=== PATIENT | male | born 1950 | race Caucasian/White ===

== ENCOUNTER 2018-12-29 00:21 | Emergency (ER) | payer MEDICARE, SELFPAY ==
[2018-12-29 00:24] VITALS: BP 160/91; PULSE 101; RESP 16; TEMP 36.8; O2SAT 94
[2018-12-29 00:58] VITALS: BP 153/80; PULSE 90; RESP 16; O2SAT 97
--- NOTE | 2018-12-29 01:19 | RAD_ITS ---
STUDY: X-RAY CHEST REASON FOR EXAM: Male, 68 years old. Tachypnea TECHNIQUE: 1 view COMPARISON: None. FINDINGS: The lungs are clear and expanded. There is no demonstrated pleural abnormality. Normal size heart. Normal mediastinum and caden. Normal visualized pulmonary arteries. Normal visualized aortic arch and descending thoracic aorta. Normal visualized thoracic spine. Normal visualized ribs, clavicles, and shoulders. There is no demonstrated abnormality of the visualized soft tissue structures of the upper abdomen. RAD/Chest 1 View (Portable) IMPRESSION: Normal x-ray examination of the chest. No acute findings in the lungs Electronically Signed: Tyler Rashid MD at 2:13 EDT Tel , Service support ,
--- NOTE | 2018-12-29 01:19 | EKG12_ITS ---
Test Reason : Blood Pressure : / mmHG Vent. Rate : 105 BPM Atrial Rate : 105 BPM P-R Int : 200 ms QRS Dur : 092 ms QT Int : 332 ms P-R-T Axes : 073 041 071 degrees QTc Int : 438 ms Sinus tachycardia with frequent Premature ventricular complexes Left ventricular hypertrophy with repolarization abnormality Marked ST abnormality, possible anterior subendocardial injury Abnormal ECG Confirmed by OSCAR RANGEL, HI ([id number]), editorial manager CHANO DEL CASTILLO ([id number]) on 01/01/2019 10:46:46 AM Referred By: RENE Confirmed By:HI MOORE MD
--- NOTE | 2018-12-29 01:19 | ED.VIS.GEN ---
History of Present Illness Chief Complaint: Mental Health Informant: Patient, Significant Other Onset: Days Context: Gradual Onset Timing: Continuous Narrative: Patient is a 68-year-old male with history of subarachnoid hemorrhage with resultant TBI presenting with a manic episode. states that since he has had a subarachnoid hemorrhage every 2 and half years he has a manic episode. Last few days he has been sleeping less and had been racing ideas. He is also not making much sense per the . He has been taking his Seroquel but is not helping. Patient was last hospitalized at [place]. Family states they do not want to go back there. Patient denies any physical complaints. Patient does have decreased visual field secondary to his prior intracranial hemorrhage. This is unchanged. 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 In addition he feels that he has solutions for a lot of the rolls problems but does not explain them. Past Medical History - Allergies and Home Meds Allergies/Adverse Reactions: Allergies Penicillins Allergy (Verified 12/29/18 00:32) Other promethazine HCl [From Phenergan] Allergy (Verified 12/29/18 00:32) Other risperidone [From Risperdal] Allergy (Verified 12/29/18 00:32) Other venlafaxine HCl [From Effexor] Allergy (Verified 12/29/18 00:32) Other perfume Adverse Reaction (Verified 12/29/18 00:32) Other Primary Care Physician: Max Cason MD [Primary Care Provider] - Past Medical History: - - Prior subarachnoid hemorrhage with resultant TBI Surgical History: tonsillectomy Smoking Status: Never smoker Review of Systems All systems negative except as indicated Psych: Reports: - - Insomnia, flight of ideas, manic behavior Physical Exam Vital Signs/Narrative: Vital Signs Temp Pulse Resp BP Pulse Ox 12/29/18 00:58 90 16 153/80 H 97 12/29/18 00:24 98.3 F 101 H 16 160/91 H 94 Inital Vital Signs reviewed: Yes General: Well nourished, Well developed, No Acute Distress Head: Normocephalic, Atraumatic Eyes: Perrl, - - Diminished visual monahan bilateral temporal as well as diminished extraocular eye movement, chronic per the ENT: Moist mucous membranes, No rhinorrhea Neck: Supple, Nontender Cardiovascular: Regular rate, Regular rhythm, No murmurs Respiratory: No distress, CTA bilaterally, Chest nontender Abdomen: Soft, Nontender, Nondistended, Normal bowel sounds Back: Nontender, Normal Inspection Extremities: Nontender, No edema Skin: Normal color, No rash Neurological: Alert, Oriented x3, Cranial nerves II-XII grossly intact, Normal Strength, Normal Sensation Psychological: - - Rapid and pressured speech, flight of ideas Diagnostic/Tx/Re-eval Chest X-Ray - ED: 1 View, Read by Radiologist, No Acute Disease Clinical Impression(s) from Imaging Studies Chest X-Ray 12/29/18 01:19 IMPRESSION: Normal x-ray examination of the chest. No acute findings in the lungs Electronically Signed: Tyler Rashid MD at 2:13 EDT Tel , Service support , Brain CT 12/29/18 01:49 IMPRESSION: Normal unenhanced CT scan of the brain. No acute findings in the brain Electronically Signed: Tyler Rashid MD at 2:48 EDT Tel , Service support , Laboratory Data 12/29/18 12/29/18 12/29/18 00:30 00:30 00:30 WBC 5.7 RBC 4.46 L Hgb 14.0 Hct 42.4 MCV 95.1 H MCH 31.4 MCHC 33.0 RDW Std Deviation 45.0 H RDW Coeff of Joanie 12.9 Plt Count 178 MPV 10.7 Immature Gran % (Auto) 0.500 Neut % (Auto) 72.5 H Lymph % (Auto) 14.6 L [place] % (Auto) 10.6 H Eos % (Auto) 0.7 Baso % (Auto) 1.1 H Absolute Neuts (auto) 4.1 Absolute Lymphs (auto) 0.83 Nucleated RBC % 0 Sodium 142 Potassium 4.0 Chloride 104 Carbon Dioxide 29.0 Anion Gap 9 BUN 22 H Creatinine 0.99 Estim Creat Clear Calc 63.93 Est GFR (MDRD) Af Amer 96 Est GFR (MDRD) Non-Af 79 BUN/Creatinine Ratio 22.2 H Glucose 113 H Calcium 10.2 H Urine Color Urine Clarity Urine pH Ur Specific [place] Urine Protein Urine Glucose (UA) Urine Ketones Urine Occult Blood Urine Nitrite Urine Bilirubin Urine Urobilinogen Ur Leukocyte Esterase Urine RBC Urine WBC Ur Squamous Epith Cells Urine Bacteria Urine Mucus Urine Opiates Screen Urine Methadone Screen Ur Barbiturates Screen Ur Phencyclidine Scrn Ur Amphetamines Screen U Methamphetamin-MDMA U Benzodiazepines Scrn Urine Cocaine Screen U Cannabinoids Screen Ur Drug Screen Comment Ethyl Alcohol < 3.0 12/29/18 12/29/18 01:45 01:45 WBC RBC Hgb Hct MCV MCH MCHC RDW Std Deviation RDW Coeff of Joanie Plt Count MPV Immature Gran % (Auto) Neut % (Auto) Lymph % (Auto) [place] % (Auto) Eos % (Auto) Baso % (Auto) Absolute Neuts (auto) Absolute Lymphs (auto) Nucleated RBC % Sodium Potassium Chloride Carbon Dioxide Anion Gap BUN Creatinine Estim Creat Clear Calc Est GFR (MDRD) Af Amer Est GFR (MDRD) Non-Af BUN/Creatinine Ratio Glucose Calcium Urine Color Yellow Urine Clarity Clear Urine pH 7.0 Ur Specific [place] 1.010 Urine Protein Negative Urine Glucose (UA) Normal Urine Ketones 5 H Urine Occult Blood Negative Urine Nitrite Negative Urine Bilirubin Negative Urine Urobilinogen Normal Ur Leukocyte Esterase Negative Urine RBC 0 SEEN Urine WBC 0 SEEN Ur Squamous Epith Cells 0 SEEN Urine Bacteria 0 SEEN Urine Mucus 0 SEEN Urine Opiates Screen NEGATIVE Urine Methadone Screen NEGATIVE Ur Barbiturates Screen POSITIVE H Ur Phencyclidine Scrn NEGATIVE Ur Amphetamines Screen NEGATIVE U Methamphetamin-MDMA NEGATIVE U Benzodiazepines Scrn NEGATIVE Urine Cocaine Screen NEGATIVE U Cannabinoids Screen NEGATIVE Ur Drug Screen Comment Ethyl Alcohol - Rhythm Strip Rhythm Strip: Sinus Tach Rate: 105 Ectopy: PVC(s) - EKG Initial EKG Interpretation: Sinus Tachycardia, - - Sinus tachycardia at a rate of 105 Frequent PVCs Normal intervals Normal axis Nonspecific ST segment abnormality in 2 and V3 with no reciprocal changes Compared to prior EKG on 05/28/2011 patient has new PVCs and tachycardia but no other significant change - Medical Decision Making Patient is evaluated for concern of a manic episode. He is hemodynamically stable. Patient initially tachycardic in the emergency room with PVCs but this improved. He does have an abnormal EKG but is not significantly different than prior EKGs. He does not claim any chest pain or any physical symptoms. Patient does display manic behavior and has confused speech as well as flight of ideas. He is medically cleared. I do think patient would benefit from evaluation for [facility] and recommendations per crisis. Patient does not require any sedation emergency room. He does complain of a headache and is given a dose of his home Fioricet. Patient has a history of chronic headaches. CT the brain does not show any acute intracranial process. Patient is evaluated by [facility]. They feel that while he is acutely manic he is not a danger to himself or others. He still able to care for himself. They recommended outpatient follow-up with crisis, counseling and his psychiatrist but does not require emergent inpatient psychiatric evaluation. I am agreeable with this. Patient's biggest concern is his inability to sleep. Patient has a prescription for Cymbalta, Seroquel and Ativan. He is encouraged to take his medications as prescribed as he has not been taking them regularly. In addition patient is counseled tonight he can take an extra Ativan if he does does not fall asleep about 30 minutes after taking his normal at 0.5 mg dose. Patient and are counseled on signs and symptoms of heart return the emergency room. They verbalized agreement understand this plan. Patient discharged home in stable condition. ED Disposition - Plan for ED Patient: Disposition: Home or Assisted Living Diagnosis: Insomnia, Lilly Instructions: Insomnia Referrals: Max Cason MD [Primary Care Provider] - Additional Instructions: Please follow-up with the counseling center as well as with your psychiatrist. Take all your medications as prescribed. It is safe to take Seroquel and Cymbalta together. These do not interact. He may take an extra dose of your Ativan pill tonight if you do not feel its effects within 30 minutes. Return to the emergency room with any worsening symptoms or concerns.
[2018-12-29 01:30] LABS: Absolute Lymphocyte Count 0.83 X10^3/uL (0.83-4.51); Absolute Neutrophil Count 4.1 X10^3/uL (2.0-7.7); Basophil# 0.06 X10^3/uL; Basophil% 1.1 % (0-1); Eosinophil# 0.04 X10^3/uL; Eosinophils% 0.7 % (0-5); Hematocrit 42.4 % (40-54); Lymphocyte # 0.83 X10^3/ul (4.0); Lymphocyte % 14.6 % (19-41); Mean Corpuscular Hgb 31.4 pg (27.0-32.0); Mean Corpuscular Volume 95.1 fL (80-94); Mean Platelet Vol. 10.7 fl (6.2-12.0); Monocyte% 10.6 % (0-10); NRBC Flagged by Analyzer 0 % (0-5); Neutrophil # 4.12 X10^3/uL (2.7-7.7); Neutrophil % 72.5 % (47-70); Platelet Count 178 K/mm3 (150-450); RBC Distribution Width CV 12.9 % (11.6-14.6); Red Blood Count 4.46 M/mm3 (4.6-6.2); White Blood Count 5.7 K/mm3 (4.4-11.0)
[2018-12-29 01:36] LABS: Alcohol, Blood (Medical)-Serum < 3.0 mg/dL
[2018-12-29 01:38] LABS: Anion Gap 9 (5-15); BUN 22 mg/dL (7-18); BUN/Creat Ratio 22.2 RATIO (10-20); Calcium,Total 10.2 mg/dL (8.5-10.1); Chloride 104 mmol/L (98-107); Creatinine, Serum 0.99 mg/dL (0.70-1.30); EST Glomerular Filtration Rate 79 mL/min (>60); Est Glom Filt Rate - Afr Amer 96 mL/min (>60); Estimated Creatinine Clearance 63.93 ml/min; Glucose 113 mg/dL (74-106); Sodium Level 142 mmol/L (136-145)
--- NOTE | 2018-12-29 01:49 | CT_ITS ---
STUDY: CT BRAIN WITHOUT CONTRAST REASON FOR EXAM: Male, 68 years old. Confusion. History of subarachnoid hemorrhage. RADIATION DOSAGE (If Supplied By Facility): CTDIvol = ( 44.99 ) mGy, DLP = ( 796.11 ) mGycm TECHNIQUE: Transaxial CT imaging of the brain was performed without administration of intravenous contrast material. Individualized dose optimization techniques were used for this CT. COMPARISON: September 07, 2015. FINDINGS: Normal soft tissue structures. Normal calvarium. Normal size ventricles and extra-axial spaces for the patient's age. Normal white matter tracts of the cerebral hemispheres. Normal basal ganglia and thalami. Normal brainstem. Normal cerebellum. There is no intracranial hemorrhage. There are no findings of an acute ischemic infarction. Normal visualized paranasal sinuses. CT/Brain/Head without Contrast IMPRESSION: Normal unenhanced CT scan of the brain. No acute findings in the brain Electronically Signed: Tyler Rashid MD at 2:48 EDT Tel , Service support ,
[2018-12-29 01:52] VITALS: RESP 16; O2SAT 98
[2018-12-29 01:56] LABS: Bacteria 0 SEEN /hpf (None Seen); Mucous, Urine 0 SEEN /hpf (<or=2+); Red Blood Cells-Urine 0 SEEN /hpf (0-5); Squamous Epithelial Cells - UA 0 SEEN /hpf (0-5); White Blood Cells 0 SEEN /hpf (0-5)
[2018-12-29 01:58] LABS: Color, Urine Yellow (Yellow); Glucose, Dipstick Normal (Normal); Ketone-Dipstick 5 mg/dl (Negative); Leukocyte Esterase-Dipstick Negative /ul (Negative); Nitrite-Dipstick Negative (Negative); Occult Blood-Urine Negative /ul (Negative); Protein-Dipstick Negative (Negative); Urine Bilirubin Dipstick Negative (Negative); Urine Clarity Clear (Clear); Urine Urobilinogen Normal (Normal)
[2018-12-29 02:17] LABS: Amphetamine Urine VISTA NEGATIVE (<1000 ng/mL); Barbiturate Urine VISTA POSITIVE (< 200 ng/mL); Benzodiazepine Urine VISTA NEGATIVE (< 200 ng/mL); Cocaine Urine VISTA NEGATIVE (< 300 ng/mL); Ecstacy Urine VISTA NEGATIVE (< 500 ng/mL); Methadone Urine VISTA NEGATIVE (< 300 ng/mL); PCP Urine VISTA NEGATIVE (< 25 ng/mL); THC Urine VISTA NEGATIVE (< 50 ng/mL); Vista UDS pH Range 7
[2018-12-29 03:04] VITALS: RESP 18
--- NOTE | 2018-12-29 03:07 | ED.RN ---
CALLED CRISIS TO SEE THIS PT, ELIAS IS LEHR STRIPPER
--- NOTE | 2018-12-29 03:50 | ED.RN ---
CRISIS ON SITE
[2018-12-29] MEDS: Acetaminophen/Butalbital/Caffe 1 Tablet PO (04:06)
[2018-12-29 04:15] VITALS: RESP 18
[2018-12-29 05:17] VITALS: BP 148/65; PULSE 87; RESP 16; O2SAT 96
== END 2018-12-29 05:18 | disposition home or self-care (01) ==
PROVIDERS: Emergency Provider Emergency Medicine; Family Provider Family Medicine; PCP Family Medicine
DX: G47.00 Insomnia, unspecified (principal); F30.9 Manic episode, unspecified; Z87.820 Personal history of traumatic brain injury; Z79.899 Other long term (current) drug therapy
CPT/HCPCS: 70450; 71045; 80048; 80307; 80320; 81001; 85025; 93005; 99284; A4216; G0480

== ENCOUNTER → 2019-03-31 12:57 | Outpatient (CLI) | payer MEDICARE, SELFPAY ==
--- NOTE | 2019-03-31 13:12 | CT_ITS ---
STUDY: CT CHEST WITH CONTRAST REASON FOR EXAM: Male, 68 years old. Myasthenia gravis without exacerbation, hx brain bleed. No chest pain or SOB. RADIATION DOSAGE (If Supplied By Facility): CTDIvol = ( 9.93 ) mGy, DLP = ( 271.08 ) mGycm TECHNIQUE: Transaxial imaging was performed following intravenous administration of IV 100mL Isovue-300. Individualized dose optimization techniques were used for this CT. COMPARISON: None. FINDINGS: The lungs are normal. There is no demonstrated pleural abnormality. Normal heart and pericardium. Aberrant right subclavian artery which is a normal variant. Normal mediastinum. Normal hilar regions. There is prominence of the pulmonary hilar arteries without peripheral pulmonary vascular congestion, suggesting pulmonary hypertension. Normal aorta arch and descending thoracic aorta. Normal osseous structures. There is no demonstrated abnormality of the visualized upper abdomen. CT/Chest WITH Contrast IMPRESSION: Suspect pulmonary arterial hypertension. Electronically Signed: Vasile Damian MD at 16:28 EST Tel , Service support ,
[2019-03-31 13:26] LABS: CREATININE FINGERSTICK 1.1 mg/dL (0.70-1.30); EGFR FINGERSTICK > 60.0000 mL/min (>60)
== END ==
PROVIDERS: Family Provider Family Medicine; PCP Family Medicine; Referring Provider Psychiatry & Neurology Neurology; Visit Provider Psychiatry & Neurology Neurology
DX: G70.00 Myasthenia gravis without (acute) exacerbation (principal)
CPT/HCPCS: 71260; Q9967

== ENCOUNTER → 2019-05-14 | Outpatient (CLI) | payer MEDICARE, SELFPAY ==
--- NOTE | 2019-05-14 15:14 | MRI_ITS ---
STUDY: MRI BRAIN WITH AND WITHOUT CONTRAST REASON FOR EXAM: Male, 68 years old. HEADACHES, BALANCE ISSUES, DROOPY EYELIDS X 7 MONTHS TECHNIQUE: Standardized multiplanar fat and water weighted pulse sequences were obtained. IV 13 CC DOTAREM was administered for the contrast portion of the examination. COMPARISON: 02/11/2011 FINDINGS: There is moderate cerebral atrophy with widening of the extra-axial spaces and ventricular dilatation. Normal white matter tracts of the supratentorial brain. There is no evidence for recent intracranial ischemia or other cause of cytotoxic edema on diffusion weighted imaging (DWI). Normal T2* images of the brain without demonstrated susceptibility artifact. There is no demonstrated hemosiderin stain. Thin linear area of gliosis in the anterior right parietal lobe likely from prior ventriculostomy catheter placement. Normal bilateral basal ganglia. Normal thalami. There is no extra-axial fluid accumulation. Normal flow voids within the major intracranial circulation suggesting patency by spin echo criteria. Normal venous enhancement. There is no enhancing intra-axial or extra-axial abnormality. Normal sella turcica, pituitary gland, infundibular stalk, optic chiasm and hypothalamus. Normal tectal plate and pineal gland. Normal midbrain, vannesa and medulla. Normal cerebellum. Normal basal cisterns. Normal bilateral temporal bones. Normal bilateral internal auditory canals. No demonstrated orbital abnormality, within the constraints of a routine brain study. Normal visualized paranasal sinuses. Normal calvarium and skull base. Normal visualized soft tissue structures. Normal visualized upper cervical spine. MRI/Brain W/WO Contrast IMPRESSION: Involutional changes of the brain, as described above. Electronically Signed: Vasile Damian MD at 16:43 EST Tel , Service support ,
== END | disposition home or self-care (01) ==
LOC: MRI 15:00
PROVIDERS: PCP Family Medicine; Referring Provider Psychiatry & Neurology Neurology; Visit Provider Psychiatry & Neurology Neurology
DX: R27.0 Ataxia, unspecified (principal)
CPT/HCPCS: 70553; A9575

== ENCOUNTER 2020-11-29 13:16 | Emergency (ER) | payer MEDICARE, SELFPAY ==
[2020-11-29 13:16] VITALS: BP 148/80; PULSE 72; RESP 18; TEMP 36.9; O2SAT 97; BMI 21.5
--- NOTE | 2020-11-29 14:19 | CT_ITS ---
STUDY: CT ABDOMEN AND PELVIS WITHOUT CONTRAST REASON FOR EXAM: Male, 70 years old. Right flank pain. History of prostate cancer. RADIATION DOSAGE (If Supplied By Facility): CTDIvol = ( 6.04 ) mGy, DLP = ( 305.04 ) mGycm TECHNIQUE: Transaxial images were obtained from the dome of the diaphragm to the symphysis pubis without oral contrast, and without intravenous contrast. Sagittal and coronal images were reconstructed. Individualized dose optimization techniques were used for this CT. COMPARISON: Comparison is made with prior examination dated 08/26/2015. FINDINGS: The visualized lung bases are unremarkable. Coronary artery calcification. Prior aortic valve replacement. Normal liver. Normal gallbladder and extrahepatic biliary system. Normal spleen. Normal pancreas. Normal bilateral adrenal glands. There is a 3.4 cm x 3.8 cm cyst in the anterior superior pole of the right kidney. There is a 5.4 mm calculus in the lower pole calyx of the right kidney. There is an 8.8 mm cyst in the lower pole of the right kidney. Normal left kidney. Normal visualized stomach. Normal small intestine. Normal colon. The appendix is visualized and appears normal. There is diffuse atherosclerotic calcification of the abdominal aorta. The distal abdominal aorta measures 2.8 cm in transverse dimension. Normal inferior vena cava. Normal retroperitoneum. Normal urinary bladder. The patient is status post prostatectomy. Normal abdominal wall. There are diffuse mild changes of the visualized lumbar spine. CT/Abdomen/Pelvis without Cont IMPRESSION: Stable right renal cyst and calculus in the lower pole calyx of the right kidney. Mildly dilated distal abdominal aorta. Electronically Signed: Martin Martinez MD at 15:01 EDT , Service support ,
--- NOTE | 2020-11-29 14:23 | EDS_ITS ---
HPI HPI - GI History of Present Illness Chief Complaint: Flank Pain Informant: patient Abdominal Pain/Flank Pain Onset: Yesterday Context: Gradual Onset Timing: Waxes and wanes Quality: Sharp Location: RLQ and Right Flank Worsened by: Nothing Relieved by: - (Fioricet) Nausea/Vomiting/Emesis GI Symptom: Positive for Nausea and Vomiting Quality: Negative for Blood streaks, Coffee ground and Hematemesis Diarrhea/Melena/Hematochezia GI Symptom: Negative for Diarrhea, Melena and Hematochezia Associated Symptoms Associated Symptoms: Negative for Dysuria, Frequency and Hematuria Narrative Narrative: Patient presents with flank pain that began yesterday evening. Patient states it is gradually gotten worse. Patient states is been waxing and waning. Patient states the pain is sharp. Patient states the pain is worse of the right lower quadrant and right lower flank area. Patient states nothing makes it better. Patient states it got better somewhat with Fioricet last nigh t. Patient admits to some nausea and vomiting. Patient denies any hematemesis or coffee-ground emesis. Patient denies any diarrhea, melena, or hematochezia. Patient denies any dysuria, hematuria, or frequency. Patient states he called his primary care physician who referred him to the emergency department for further evaluation. [facility] Medical History (Updated 11/29/20 @ 15:[address] Karthik Ramirez, ) Hypotension Prostate CA Prostate CA Pulmonary embolism Stroke/cerebrovascular accident Home Medications fluticasone propionate 1 spray NASAL DAILY 08/13/14 [History Last Taken Unknown] lorazepam 0.5 mg PO DAILY PRN PRN 08/13/14 [History Last Taken Unknown] trazodone 50 - 100 mg PO DAILY 08/13/14 [History Last Taken Unknown] duloxetine 1 tab PO DAILY 12/29/18 [History Last Taken Unknown] Colace 100 mg PO/SL DAILY 11/29/20 [History Last Taken Unknown] zjhpibgwqo-ukuazkodovskb-jefh 1 tab PO PRN PRN 11/29/20 [History Last Taken Unknown] fludrocortisone 0.1 mg PO DAILY 11/29/20 [History Last Taken Unknown] hydrocodone-acetaminophen 1 tab PO Q6H PRN PRN 3 Days #10 tablet 11/29/20 [Rx Last Taken Unknown] midodrine 2.5 mg PO DAILY 11/29/20 [History Last Taken Unknown] potassium chloride 20 meq PO DAILY 11/29/20 [History Last Taken Unknown] Allergy/AdvReac Type Severity Reaction Status Date / Time Penicillins Allergy Other Verified 11/29/20 13:18 promethazine HCl Allergy Other Verified 11/29/20 13:18 [From Phenergan] risperidone [From Risperdal] Allergy Other Verified 11/29/20 13:18 venlafaxine HCl Allergy Other Verified 11/29/20 13:18 [From Effexor] perfume AdvReac Other Verified 11/29/20 13:18 Surgical History (Updated 11/29/20 @ 14:[address] Karthik Ramirez DO) Hx of craniotomy Hx of prostatectomy Social History Smoking Status: Never smoker ROS ROS ED Constitutional Constitutional ED: Denies chills or fever(s) Eyes Eyes: Denies blurry vision or change in vision ENT ENT ED: Denies rhinorrhea or sore throat Cardiovascular Cardiovascular: Denies chest pain or palpitations Respiratory/Chest Respiratory/Chest: Denies cough or dyspnea Gastrointestinal Gastrointestinal: Reports abdominal pain, nausea and vomiting Genitourinary Genitourinary ED: Denies dysuria or hematuria Musculoskeletal Musculoskeletal: Reports back pain; Denies neck pain Integumentary Denies abscess or rash Neurologic Neurologic: Denies headache(s) or weakness Allergic/Immunologic Allergic/Immunologic ED: Denies mouth swelling or urticaria EXAM Physical Exam Const Vital Signs: 11/29/20 13:16 Temperature 98.4 F Temperature Source Temporal Pulse Rate 72 Respiratory Rate 18 Blood Pressure 148/80 H Blood Pressure Mean 102 Pulse Ox 97 Oxygen Delivery Method Room Air Positive well nourished and well developed General Appearance ED: well developed HEENT Reports moist mucous membranes Neck supple and no JVD Resp normal respiratory effort and clear to auscultation bilaterally Cardio regular rate, regular rhythm and no murmurs GI normal to inspection, nondistended, normoactive bowel sounds and non-distended Palpation: soft and tender RLQ; Negative for guarding or rebound tenderness present Extremity normal to inspection General Extremety ED: Negative for edema or tenderness General Extremity: Negative for edema Neuro oriented x3, CN's II-XII intact bilaterally and no sensory deficits noted Sensorium / Orientation: alert Motor Exam: strength 5/5 throughout Psych mental status grossly normal Skin no rashes or lesions noted MDM MDM MDM Narrative Medical decision making narrative: Patient was given IV fluids, morphine, and Zofran. CBC was within normal limits. Comprehensive metabolic profile was essentially within normal limits. Urinalysis does not show any evidence of urinary tract infection or hematuria. CT scan of the abdomen pelvis was obtained. There is a calculus in the lower pole of the right kidney but there is no ureteral calculus. There is a mildly dilated distal abdominal aorta at 2.8 cm. Patient was feeling better on reevaluation. Patient was advised of his findings. Patient was given a prescription for a short course of [place]. Patient was instructed to follow-up with his primary care physician in 5 to 7 days. Patient was instructed return if worse in any way. Patient understood and was agreeable with the plan. All questions were answered. Lab Data Attestation: I reviewed the patient's lab results. Labs: Laboratory Results - last 24 hr 11/29/20 11/29/20 11/29/20 13:30 13:30 13:30 WBC 4.4 RBC 4.29 L Hgb 13.4 Hct 41.9 MCV 97.7 H MCH 31.2 MCHC 32.0 RDW Std Deviation 46.6 H RDW Coeff of Joanie 13.2 Plt Count 172 MPV 10.4 Immature Gran % (Auto) 0.200 Neut % (Auto) 66.0 Lymph % (Auto) 15.6 L Jack % (Auto) 14.3 H Eos % (Auto) 3.2 Baso % (Auto) 0.7 Absolute Neuts (auto) 2.9 Absolute Lymphs (auto) 0.69 L Nucleated RBC % 0 Sodium 141 Potassium 3.7 Chloride 105 Carbon Dioxide 33.0 H Anion Gap 3 L BUN 22 H Creatinine 0.86 Estim Creat Clear Calc 74.72 Est GFR (MDRD) Af Amer 112 Est GFR (MDRD) Non-Af 93 BUN/Creatinine Ratio 25.6 H Glucose 113 H Calcium 9.2 Total Bilirubin 0.50 AST 21 ALT 28 Alkaline Phosphatase 63 Total Protein 6.5 Albumin 3.7 Globulin 2.8 Albumin/Globulin Ratio 1.3 Urine Color Yellow Urine Clarity Clear Urine pH 6.0 Ur Specific [place] 1.010 Urine Protein Negative Urine Glucose (UA) Normal Urine Ketones Negative Urine Occult Blood 10 H Urine Nitrite Negative Urine Bilirubin Negative Urine Urobilinogen Normal Ur Leukocyte Esterase Negative Urine RBC 0 SEEN Urine WBC 0 SEEN Ur Squamous Epith Cells 0 SEEN Urine Bacteria 0 SEEN Urine Mucus 0 SEEN Radiography Diagnostic Testing: Radiology Impression Abdomen/Pelvis CT 11/29/20 14:19 IMPRESSION: Stable right renal cyst and calculus in the lower pole calyx of the right kidney. Mildly dilated distal abdominal aorta. Electronically Signed: Martin Martinez MD at 15:01 EDT , Service support , Discharge Plan Triage Chief Complaint: Flank Pain ED Provider: Karthik Ramirez Dx/Rx/DC Orders Clinical Impression: Abdominal pain, right lower quadrant Instructions: ED Abdominal Pain Unkn Cause Male... Prescriptions: New hydrocodone-acetaminophen [hydrocodone-acetaminophen] 1 TABLET tablet 1 tab PO Q6H PRN PRN (Reason: Pain) 3 Days Qty: 10 RF: 0 No Action lorazepam 0.5 MG tablet 0.5 mg PO DAILY PRN PRN (Reason: Sleep) RF: 0 trazodone 100 MG tablet 50 - 100 mg PO DAILY RF: 0 fluticasone propionate 1 SPRAY spray,suspension 1 spray NASAL DAILY RF: 0 duloxetine 20 MG capsule 1 tab PO DAILY RF: 0 jvvenkvibn-uawvuwmkkpmoy-gwig 50-325-40 mg tablet 1 tab PO PRN PRN (Reason: Headache) RF: 0 potassium chloride 20 mEq tablet,ER particles/crystals 20 meq PO DAILY RF: 0 midodrine 2.5 mg tablet 2.5 mg PO DAILY RF: 0 fludrocortisone 0.1 mg tablet 0.1 mg PO DAILY RF: 0 Colace 100 mg PO/SL DAILY RF: 0 Primary Care Provider: Max Cason Referrals: Max Cason MD [Primary Care Provider] - 5-7 Days Disposition Disposition: Home, Self Care
[2020-11-29] MEDS: 0.9% Normal Saline 1,000 ML 1000 ML IV (14:29)
[2020-11-29] MEDS: Ondansetron 4 MG/2 ML Vial IV (14:29)
[2020-11-29] MEDS: Morphine 4 MG/ML Syringe IV (14:29)
[2020-11-29 14:33] LABS: Bacteria 0 SEEN /hpf (None Seen); Mucous, Urine 0 SEEN /hpf (<or=2+); Red Blood Cells-Urine 0 SEEN /hpf (0-5); Squamous Epithelial Cells - UA 0 SEEN /hpf (0-5); White Blood Cells 0 SEEN /hpf (0-5)
[2020-11-29 14:35] LABS: Absolute Lymphocyte Count 0.69 X10^3/uL (0.83-4.51); Absolute Neutrophil Count 2.9 X10^3/uL (2.0-7.7); Basophil# 0.03 X10^3/uL; Basophil% 0.7 % (0-1); Eosinophil# 0.14 X10^3/uL; Eosinophils% 3.2 % (0-5); Hematocrit 41.9 % (40-54); Hemoglobin 13.4 g/dL (13.0-16.5); Lymphocyte # 0.69 X10^3/ul (0.83-4.51); Lymphocyte % 15.6 % (19-41); Mean Corpuscular Hgb 31.2 pg (27.0-32.0); Mean Corpuscular Volume 97.7 fL (80-94); Mean Platelet Vol. 10.4 fl (6.2-12.0); Monocyte# 0.63 X10^3/uL; Monocyte% 14.3 % (0-10); NRBC Flagged by Analyzer 0 % (0-5); Neutrophil # 2.91 X10^3/uL (2.7-7.7); Platelet Count 172 K/mm3 (150-450); RBC Distribution Width CV 13.2 % (11.6-14.6); RBC Distribution Width SD 46.6 fl (35.1-43.9); Red Blood Count 4.29 M/mm3 (4.6-6.2); White Blood Count 4.4 K/mm3 (4.4-11.0)
[2020-11-29 14:40] LABS: Color, Urine Yellow (Yellow); Glucose, Dipstick Normal (Normal); Ketone-Dipstick Negative (Negative); Leukocyte Esterase-Dipstick Negative /ul (Negative); Nitrite-Dipstick Negative (Negative); Occult Blood-Urine 10 /ul (Negative); Protein-Dipstick Negative (Negative); Urine Bilirubin Dipstick Negative (Negative); Urine Clarity Clear (Clear); Urine Urobilinogen Normal (Normal)
[2020-11-29 14:47] LABS: ALB/GLOB Ratio 1.3 RATIO (0.9-2.4); AST(SGOT) 21 U/L (15-37); Alanine Aminotransfer ALT/SGPT 28 U/L (16-61); Albumin, Serum 3.7 g/dL (3.2-5.0); Alkaline Phosphatase 63 U/L (45-117); Anion Gap 3 (5-15); BUN 22 mg/dL (7-18); BUN/Creat Ratio 25.6 RATIO (10-20); Calcium,Total 9.2 mg/dL (8.5-10.1); Chloride 105 mmol/L (98-107); Creatinine, Serum 0.86 mg/dL (0.70-1.30); EST Glomerular Filtration Rate 93 mL/min (>60); Est Glom Filt Rate - Afr Amer 112 mL/min (>60); Estimated Creatinine Clearance 74.72 ml/min; Globulin 2.8 g/dL (2.2-4.2); Glucose 113 mg/dL (74-106); Potassium 3.7 mmol/L (3.5-5.1); Protein, Total 6.5 g/dL (6.4-8.2); Sodium Level 141 mmol/L (136-145)
== END 2020-11-29 15:29 | disposition home or self-care (01) ==
PROVIDERS: Emergency Provider Emergency Medicine; PCP Family Medicine
DX: R10.31 Right lower quadrant pain (principal)
CPT/HCPCS: 74176; 80053; 81001; 85025; 96361; 96374; 96375; 99282; J7030; A4216; J2405

== ENCOUNTER 2022-06-08 22:21 | Emergency (ER) | payer MEDICARE, SELFPAY ==
[2022-06-08 22:22] VITALS: BP 168/92; PULSE 71; RESP 18; TEMP 36.6; O2SAT 100; BMI 21.7
[2022-06-08 22:24] VITALS: BP 168/92; PULSE 71; RESP 18; TEMP 36.6; O2SAT 100
[2022-06-08] MEDS: 0.9% Normal Saline 1,000 ML 999 ML IV (23:35)
[2022-06-08] MEDS: Orphenadrine 60 MG/2 ML Ampul IV (23:36)
[2022-06-08] MEDS: Ketorolac 15 MG/ML Vial IV (23:36)
[2022-06-08 23:45] LABS: Absolute Lymphocyte Count 0.59 X10^3/uL (0.83-4.51); Bacteria 0 SEEN /hpf (None Seen); Basophil# 0.05 X10^3/uL; Basophil% 0.8 % (0-1); Eosinophil# 0.11 X10^3/uL; Eosinophils% 1.7 % (0-5); Hematocrit 40.4 % (40-54); Hemoglobin 13.2 g/dL (13.0-16.5); Lymphocyte # 0.59 X10^3/ul (0.83-4.51); Lymphocyte % 8.9 % (19-41); Mean Corp Hgb Conc 32.7 g/dL (32-36); Mean Corpuscular Volume 97.8 fL (80-94); Mean Platelet Vol. 10.4 fl (6.2-12.0); Monocyte# 0.81 X10^3/uL; Monocyte% 12.3 % (0-10); Mucous, Urine 0 SEEN /hpf (<or=2+); NRBC Flagged by Analyzer 0 % (0-5); Neutrophil # 5.03 X10^3/uL (2.7-7.7); POSITIVE DIFFERENTIAL YES; Platelet Count 169 K/mm3 (150-450); RBC Distribution Width CV 13.2 % (11.6-14.6); RBC Distribution Width SD 47.6 fl (35.1-43.9); Red Blood Count 4.13 M/mm3 (4.6-6.2); Squamous Epithelial Cells - UA 0 SEEN /hpf (0-5); White Blood Cells 0 SEEN /hpf (0-5); White Blood Count 6.6 K/mm3 (4.4-11.0)
[2022-06-08 23:46] LABS: Color, Urine Yellow (Yellow); Glucose, Dipstick Normal (Normal); Ketone-Dipstick Negative (Negative); Leukocyte Esterase-Dipstick Negative /ul (Negative); Nitrite-Dipstick Negative (Negative); Occult Blood-Urine 250 /ul (Negative); Protein-Dipstick 15 mg/dl (Negative); Urine Bilirubin Dipstick Negative (Negative); Urine Clarity Clear (Clear); Urine Urobilinogen Normal (Normal); Urine pH 6.5 (5.0 - 8.0)
[2022-06-08 23:47] VITALS: BP 174/81; PULSE 64; RESP 16; O2SAT 98
[2022-06-08 23:47] LABS: Differential Indicated SCAN CRITERIA MET
--- NOTE | 2022-06-08 23:57 | CT_ITS ---
INDICATION: flank pain EXAMINATION: CT ABDOMEN AND PELVIS WITHOUT CONTRAST - CT Abdomen And Pelvis W/O Contrast Injection TECHNIQUE: Helically acquired images were obtained of the abdomen and pelvis without oral or IV contrast. A radiation dose optimization technique was used for this scan. IV Contrast dosage and agent: None. Oral contrast: None. RADIATION DOSAGE (If Supplied By Facility): CTDIvol = ( 6.08 ) mGy, DLP = ( 315.78 ) mGycm COMPARISON: None. FINDINGS: LOWER CHEST: Lung bases are clear. No cardiomegaly or pericardial effusion. LIVER: Homogeneous. No focal mass. GALLBLADDER AND BILIARY TREE: No calcified gallstones. No gallbladder distension or wall edema. No intra- or extrahepatic biliary ductal dilation. PANCREAS: No focal cystic or solid mass. SPLEEN: Normal size without focal cystic or solid mass. ADRENAL GLANDS: No nodules. KIDNEYS AND URETERS: There is a right renal cyst measures 4.5 cm. There is moderate right hydronephrosis due to 7 mm stone in the proximal right ureter near the UPJ . PERITONEUM: No ascites or free air. No other fluid collection. BOWEL: No evidence of acute appendicitis. No stomach or bowel distension. No focal inflammatory change. LYMPH NODES: No enlarged mesenteric or retroperitoneal lymph nodes. VESSELS: Aorta is non-dilated. URINARY BLADDER: Unremarkable. REPRODUCTIVE ORGANS: No pelvic masses. ABDOMINAL WALL: No discrete abdominal or pelvic wall hernia. BONES: No lytic or blastic abnormality. CT/Abdomen/Pelvis without Cont IMPRESSION: There is moderate right hydronephrosis due to 7 mm stone in the proximal right ureter near the UPJ . Electronically Signed: Ron Cheney MD at 0:30 EDT ,
[2022-06-08 23:59] LABS: Anion Gap 5 (5-15); BUN 27 mg/dL (7-18); BUN/Creat Ratio 21.3 RATIO (10-20); Calcium,Total 9.3 mg/dL (8.5-10.1); Chloride 106 mmol/L (98-107); Creatinine, Serum 1.27 mg/dL (0.70-1.30); EST Glomerular Filtration Rate 59 mL/min (>60); Est Glom Filt Rate - Afr Amer 71 mL/min (>60); Estimated Creatinine Clearance 50.19 ml/min; Glucose 116 mg/dL (74-106); Potassium 3.8 mmol/L (3.5-5.1); Sodium Level 141 mmol/L (136-145)
[2022-06-09 00:10] LABS: Red Blood Cells-Urine 0-5 SEEN /hpf (0-5)
[2022-06-09 00:11] LABS: Differential Comment SCANNED
[2022-06-09 00:34] VITALS: BP 137/72; PULSE 62; RESP 16; O2SAT 98
[2022-06-09] MEDS: Ondansetron 4 MG/2 ML Vial IV (00:41)
[2022-06-09] MEDS: Morphine 4 MG/ML Syringe IV (00:41)
--- NOTE | 2022-06-09 01:40 | EDS_ITS ---
HPI History of Present Illness Chief Complaint: Flank Pain Informant: patient Narrative Narrative: Patient is a 71-year-old male who presents with pain in the right low back/abdominal region. Patient states he has had pain in this area for years. He cannot tell me what the reason for the pain over that long of a time period is from. He states he typically takes his Fioricet and symptoms will improve. He states that this evening the pain has been more intense than at his baseline and there has been no recent trauma or excessive activity. He states he took his normal Fioricet and there was no symptom improvement and secondary to his he comes in for evaluation. He does report his urine has looked dark recently but denies any dysuria. [facility] Medical History (Updated 06/09/22 @ 01:[address] Trav Falk, ) Hypotension Prostate CA Prostate CA Pulmonary embolism Stroke Stroke/cerebrovascular accident Subarachnoid hemorrhage Home Medications fluticasone propionate 50 mcg/actuation nasal spray,suspension 1 spray DAILY 08/13/14 [History Last Taken Unknown] lorazepam 0.5 mg tablet 0.5 mg PO DAILY PRN PRN Sleep 08/13/14 [History Last Taken Unknown] trazodone 100 mg tablet 50 - 100 mg PO DAILY 08/13/14 [History Last Taken Unknown] duloxetine 20 mg capsule,delayed release 1 tab PO DAILY 12/29/18 [History Last Taken Unknown] Colace 100 mg PO/SL DAILY 11/29/20 [History Last Taken Unknown] prntrttuii-rpojhpfzzrjtu-dgvnftct 50 mg-325 mg-40 mg tablet 1 tab PO PRN PRN Headache 11/29/20 [History Last Taken Unknown] fludrocortisone 0.1 mg tablet 0.1 mg PO DAILY 11/29/20 [History Last Taken Unknown] hydrocodone-acetaminophen 5-325mg 5mg-325mg 1 tab PO Q6H PRN PRN Pain 3 days #10 TABLETS 11/29/20 [Rx Last Taken Unknown] midodrine 2.5 mg tablet 2.5 mg PO DAILY 11/29/20 [History Last Taken Unknown] potassium chloride 20 mEq tablet,extended release(part/cryst) 20 meq PO DAILY 11/29/20 [History Last Taken Unknown] ketorolac 10 mg tablet 10 mg PO 4X/DAY PRN PRN pain 5 days #20 tabs 04/02/23 [Rx Last Taken Unknown] oxycodone-acetaminophen 5 mg-325 mg tablet (Endocet) 1 tab PO Q6H PRN pain 3 days #12 tabs 06/09/22 [Rx Last Taken Unknown] tamsulosin 0.4 mg capsule (Flomax) 0.4 mg PO DAILY #14 caps 06/09/22 [Rx Last Taken Unknown] Allergy/AdvReac Type Severity Reaction Status Date / Time Penicillins Allergy Other Verified 11/29/20 13:18 promethazine HCl Allergy Other Verified 11/29/20 13:18 [From Phenergan] risperidone [From Risperdal] Allergy Other Verified 11/29/20 13:18 venlafaxine HCl Allergy Other Verified 11/29/20 13:18 [From Effexor] perfume AdvReac Other Verified 11/29/20 13:18 Surgical History (Updated 11/29/20 @ 14:[address] Karthik Ramirez DO) Hx of craniotomy Hx of prostatectomy Social History Smoking Status: Never smoker ROS ROS ED Constitutional Constitutional ED: Denies chills or fever(s) ENT ENT ED: Denies sore throat Cardiovascular Cardiovascular: Denies chest pain Respiratory/Chest Respiratory/Chest: Denies cough or dyspnea Gastrointestinal Gastrointestinal: Reports abdominal pain; Denies diarrhea, nausea or vomiting Genitourinary Genitourinary ED: Denies dysuria Musculoskeletal Musculoskeletal: Reports back pain; Denies myalgias Integumentary Denies rash Neurologic Neurologic: Denies headache(s) Hematologic/Lymphatic Hematologic/Lymphatic: Denies easy bleeding or easy bruising EXAM Physical Exam Const Vital Signs: 06/08/22 22:22 06/08/22 22:24 06/08/22 23:47 Temperature 97.8 F 97.8 F Temperature Source Temporal Temporal Pulse Rate 71 71 64 Respiratory Rate 18 18 16 Blood Pressure 168/92 H 168/92 H 174/81 H Blood Pressure Mean 117 117 112 Pulse Ox 100 100 98 Oxygen Delivery Method Room Air Room Air Room Air 06/09/22 00:34 Temperature Temperature Source Pulse Rate 62 Respiratory Rate 16 Blood Pressure 137/72 H Blood Pressure Mean 93 Pulse Ox 98 Oxygen Delivery Method Room Air Positive well nourished and well developed General Appearance ED: well developed HEENT Reports moist mucous membranes Eyes PERRL and EOMs intact bilaterally General Eye ED: Negative for scleral icterus Neck supple Resp normal respiratory effort and clear to auscultation bilaterally Cardio regular rate and regular rhythm Rate: other Other Details: Radial pulses are plus 2 out of 4 bilaterally are equal and symmetric GI non-distended and no masses GI Narrative: Abdomen is soft and nondistended with normal active bowel sounds. There is faint pain noted in the right mid to lower abdomen without voluntary guarding or rigidity. No fluid wave or pulsatile mass noted Auscultation: normoactive bowel sounds Palpation: soft Back/Spine Back/Spine Narrative: Positive right CVA pain Extremity normal to inspection Neuro oriented x3 and CN's II-XII intact bilaterally Sensorium / Orientation: alert Psych Psych Narrative: Patient has a flat affect Skin no rashes or lesions noted Skin Narrative: No overlying abrasions or ecchymosis to suggest trauma and no overlying erythema or warmth to suggest infection MDM MDM MDM Narrative Medical decision making narrative: Patient presented to the ER mildly hypertensive but otherwise with stable vitals. He reported longstanding right-sided abdominal/back pain but this pain tonight was more intense than previous. With his exam showing right CVA pain there is concern this is a new onset kidney stone. Differential also includes pyelonephritis urinary tract infection biliary colic or acute appendicitis. Lab work showed no leukocytosis or left shift there is no signs of acute kidney injury as his creatinine is still normal and there is no signs of urinary infection. CT scan showed a large 7 mm stone in the distal right UVJ with obstruction causing mild hydronephrosis. The patient was given IV fluids Toradol morphine and reported his pain was minimal. At this time he does not have urosepsis or acute kidney injury from the stone he has improvement of his pain as well and therefore there is no need for emergent urology consultation or admission to the hospital. Patient will be started on on Toradol and Percocet on an outpatient and advised to see urology to discuss need for stent placement. Plan of care was discussed with the patient he is agreeable to it History & Record Review Discussion w/independent historian: Patient Lab Data Attestation: I reviewed the patient's lab results. Labs: Laboratory Results - last 24 hr 06/08/22 06/08/22 06/08/22 23:35 23:35 23:35 WBC 6.6 RBC 4.13 L Hgb 13.2 Hct 40.4 MCV 97.8 H MCH 32.0 MCHC 32.7 RDW Std Deviation 47.6 H RDW Coeff of Joanie 13.2 Plt Count 169 MPV 10.4 Immature Gran % (Auto) 0.300 Neut % (Auto) 76.0 H Lymph % (Auto) 8.9 L Lawrence % (Auto) 12.3 H Eos % (Auto) 1.7 Baso % (Auto) 0.8 Absolute Neuts (auto) 5.0 Absolute Lymphs (auto) 0.59 L Nucleated RBC % 0 Differential Comment SCANNED Sodium 141 Potassium 3.8 Chloride 106 Carbon Dioxide 30.0 Anion Gap 5 BUN 27 H Creatinine 1.27 Estim Creat Clear Calc 50.19 Est GFR (MDRD) Af Amer 71 Est GFR (MDRD) Non-Af 59 L BUN/Creatinine Ratio 21.3 H Glucose 116 H Calcium 9.3 Urine Color Yellow Urine Clarity Clear Urine pH 6.5 Ur Specific [place] 1.010 Urine Protein 15 H Urine Glucose (UA) Normal Urine Ketones Negative Urine Occult Blood 250 H Urine Nitrite Negative Urine Bilirubin Negative Urine Urobilinogen Normal Ur Leukocyte Esterase Negative Urine RBC 0-5 SEEN Urine WBC 0 SEEN Ur Squamous Epith Cells 0 SEEN Urine Bacteria 0 SEEN Urine Mucus 0 SEEN Radiography Diagnostic Testing: Clinical Impression(s) from Imaging Studies Abdomen/Pelvis CT 06/08/22 23:57 IMPRESSION: There is moderate right hydronephrosis due to 7 mm stone in the proximal right ureter near the UPJ . Electronically Signed: Ron Cheney MD at 0:30 EDT , Discharge Plan Triage Chief Complaint: Flank Pain ED Provider: Trav Falk Dx/Rx/DC Orders Clinical Impression: Kidney stone on right side, Renal colic Instructions: ED Kidney Stone w/ Colic Prescriptions: New tamsulosin [Flomax] 0.4 mg capsule 0.4 mg PO DAILY Qty: 14 0RF ketorolac 10 mg tablet 10 mg PO 4X/DAY PRN PRN (Reason: pain) 5 Days Qty: 20 0RF Rx Instructions: while awake; do not exceed 4 doses per day oxycodone-acetaminophen [Endocet] 5-325 mg tablet 1 tab PO Q6H PRN (Reason: pain) 3 Days Qty: 12 0RF No Action lorazepam 0.5 MG tablet 0.5 mg PO DAILY PRN PRN (Reason: Sleep) trazodone 100 MG tablet 50 - 100 mg PO DAILY fluticasone propionate 1 SPRAY spray,suspension 1 spray NASAL DAILY duloxetine 20 MG capsule 1 tab PO DAILY Label Comments: TAKE 1 CAPSULE BY MOUTH ONCE DAILY rpiilnkuqt-gkvaigeumskxs-uvdh 50-325-40 mg tablet 1 tab PO PRN PRN (Reason: Headache) Label Comments: TAKE 1 CAPSULE BY MOUTH ONCE DAILY NEEDED FOR SEVERE HEADACHE potassium chloride 20 mEq tablet,ER particles/crystals 20 meq PO DAILY midodrine 2.5 mg tablet 2.5 mg PO DAILY Label Comments: TAKE 1 TABLET BY MOUTH TWICE DAILY fludrocortisone 0.1 mg tablet 0.1 mg PO DAILY Label Comments: TAKE 1 TABLET BY MOUTH ONCE DAILY Colace 100 mg PO/SL DAILY hydrocodone-acetaminophen [hydrocodone-acetaminophen] 1 TABLET tablet 1 tab PO Q6H PRN PRN (Reason: Pain) 3 Days Qty: 10 0RF Primary Care Provider: Max Cason Referrals: Max Cason MD [Primary Care Provider] - Jorge Lemos MD [Med Staff - Active Staff] - Activity Restrictions/Additional Instructions: Please keep yourself well-hydrated and stay active to try and help pass your kidney stone. If you develop a fever over 100.4 or your pain is not controlled please return to the ER for repeat evaluation. Otherwise follow-up with urology to discuss need for stent placement Disposition Disposition: Home, Self Care Discharge Date/Time: 06/09/22 02:22
[2022-06-09] MEDS: oxyCODONE 5 MG Tablet PO (02:15)
== END 2022-06-09 02:22 | disposition home or self-care (01) ==
PROVIDERS: Emergency Provider Emergency Medicine; PCP Family Medicine; Visit Provider Emergency Medicine
DX: N13.2 Hydronephrosis with renal and ureteral calculous obstruction (principal); N23 Unspecified renal colic
CPT/HCPCS: 74176; 80048; 81001; 85025; 96361; 96374; 96375; 99283; J7030; A4216; J2405

== ENCOUNTER 2022-11-30 14:01 | Emergency (ER) | payer MEDICARE, SELFPAY ==
[2022-11-30 14:02] VITALS: BP 93/54; PULSE 74; RESP 16; TEMP 36.3; O2SAT 100
--- NOTE | 2022-11-30 14:13 | RAD_ITS ---
EXAM: XR RIGHT TIBIA AND FIBULA, 2 VIEWS CLINICAL INDICATION: Trauma injury. TECHNIQUE: Frontal and lateral views of the right tibia and fibula. COMPARISON: No relevant prior studies available. FINDINGS: BONES/JOINTS: Unremarkable. No acute fracture. No subluxation. Normal alignment. Preservation of the joint space. No sclerotic or destructive changes observed. SOFT TISSUES: Soft tissue laceration overlying the mid fibular shaft. No radiopaque foreign body. RAD/Tibia & Fibula 2 Views IMPRESSION: 1. No acute fracture or dislocation of the right tibia and fibula. 2. Soft tissue laceration overlying the mid fibular shaft.. Electronically Signed: Dony Mixon MD at 16:10 EDT ,
--- NOTE | 2022-11-30 14:13 | CT_ITS ---
EXAM: CT HEAD WITHOUT INTRAVENOUS CONTRAST CLINICAL INDICATION: Trauma injury. TECHNIQUE: Multiple axial images were obtained of the head without intravenous contrast. This CT exam was performed using one or more of the following dose reduction techniques: automated exposure control, adjustment of the mA and/or kV according to patient size, and/or use of iterative reconstruction technique. RADIATION DOSE: CTDIvol = 44.99 mGy, DLP = 846.73 mGy-cm COMPARISON: CT head without contrast 12/29/2018. MRI brain with and without contrast 05/14/2019. FINDINGS: BRAIN AND EXTRA-AXIAL SPACES: Cystic encephalomalacia and atrophy in the right middle frontal gyrus. No intra- or extra-axial hemorrhage. No evidence of acute infarct. No intracranial mass or mass effect. There is preservation of the wheeler/white matter interface. Posterior fossa structures are unremarkable. No hydrocephalus. Basal cisterns are patent. BONES/JOINTS: Unremarkable. No discrete lytic or blastic abnormalities. SINUSES: Unremarkable as visualized. Clear. MASTOID AIR CELLS: Unremarkable. Clear. ORBITS: Visualized globes, extraocular muscles, optic nerves and retrobulbar fat appear unremarkable. CT/Brain/Head without Contrast IMPRESSION: 1. No CT evidence of intracranial bleeding, acute ischemic infarct or acute intracranial abnormality. 2. Focal cystic encephalomalacia and atrophy in the right middle frontal gyrus. This was present previously. Electronically Signed: Dony Mixon MD at 15:09 EDT ,
--- NOTE | 2022-11-30 14:13 | CT_ITS ---
We are attempting to reach an attending provider to discuss findings. An addendum with communication details will be sent when the communication is complete. EXAM: CT CERVICAL SPINE WITHOUT INTRAVENOUS CONTRAST CLINICAL INDICATION: Trauma injury. TECHNIQUE: Helically acquired images were obtained of the cervical spine without intravenous contrast. 2D reformatted images were reviewed. This CT exam was performed using one or more of the following dose reduction techniques: automated exposure control, adjustment of the mA and/or kV according to patient size, and/or use of iterative reconstruction technique. RADIATION DOSE: CTDIvol = 15.90 mGy, DLP = 346.36 mGy-cm COMPARISON: No relevant prior studies available. FINDINGS: VERTEBRAE: Mild degenerative anterolisthesis of C7 on T1. Normal vertebral body heights. DISCS/SPINAL CANAL/NEURAL FORAMINA: C5-C6 degenerative disc space height narrowing with endplate sclerosis and degenerative fact phenomenon. C6-C7 degenerative disc space height narrowing. Normal central canal. Normal remaining cervical disc space heights. SOFT TISSUES: Unremarkable. No prevertebral soft tissue swelling. LYMPH NODES: Unremarkable. No cervical adenopathy. LUNG APICES: Small right apical pneumothorax.. CT/Spine Cervical without Contras IMPRESSION: 1. No CT evidence of acute fracture of the cervical spine, craniocervical junction and cervicothoracic junction. 2. Mild degenerative anterolisthesis of C7 on T1. 3. Small right apical pneumothorax. Electronically Signed: Dony Mixon MD at 15:13 EDT ,
--- NOTE | 2022-11-30 14:16 | ED.VIS.FALL ---
HPI HPI - Fall History of Present Illness Chief Complaint: Fall Narrative Narrative: Presents with head injury, rib injury and right leg wound after a fall off a ladder. He is not anticoagulated. No loss consciousness. Denies any other injury. [facility] Medical History Hypotension Prostate CA Prostate CA Pulmonary embolism Stroke Stroke/cerebrovascular accident Subarachnoid hemorrhage Home Medications fluticasone propionate 50 mcg/actuation nasal spray,suspension 1 spray DAILY 08/13/14 [History Last Taken Unknown] lorazepam 0.5 mg tablet 0.5 mg PO DAILY PRN PRN Sleep 08/13/14 [History Last Taken Unknown] trazodone 100 mg tablet 50 - 100 mg PO DAILY 08/13/14 [History Last Taken Unknown] duloxetine 20 mg capsule,delayed release 1 tab PO DAILY 12/29/18 [History Last Taken Unknown] Colace 100 mg PO/SL DAILY 11/29/20 [History Last Taken Unknown] hpiwhderex-yjbqfjycbqqot-unvubveh 50 mg-325 mg-40 mg tablet 1 tab PO PRN PRN Headache 11/29/20 [History Last Taken Unknown] fludrocortisone 0.1 mg tablet 0.1 mg PO DAILY 11/29/20 [History Last Taken Unknown] hydrocodone-acetaminophen 5-325mg 5mg-325mg 1 tab PO Q6H PRN PRN Pain 3 days #10 TABLETS 11/29/20 [Rx Last Taken Unknown] midodrine 2.5 mg tablet 2.5 mg PO DAILY 11/29/20 [History Last Taken Unknown] potassium chloride 20 mEq tablet,extended release(part/cryst) 20 meq PO DAILY 11/29/20 [History Last Taken Unknown] ketorolac 10 mg tablet 10 mg PO 4X/DAY PRN PRN pain 5 days #20 tabs 06/09/22 [Rx Last Taken Unknown] oxycodone-acetaminophen 5 mg-325 mg tablet (Endocet) 1 tab PO Q6H PRN pain 3 days #12 tabs 06/09/22 [Rx Last Taken Unknown] tamsulosin 0.4 mg capsule (Flomax) 0.4 mg PO DAILY #14 caps 06/09/22 [Rx Last Taken Unknown] cephalexin 500 mg capsule 500 mg PO Q6 #40 CAPSULES 11/30/22 [Rx Last Taken Unknown] oxycodone-acetaminophen 5 mg-325 mg tablet (Percocet) 1 tab PO Q8H PRN pain 3 days #12 tabs 11/30/22 [Rx Last Taken Unknown] Allergy/AdvReac Type Severity Reaction Status Date / Time Penicillins Allergy Other Verified 11/30/22 14:01 promethazine HCl Allergy Other Verified 11/30/22 14:01 [From Phenergan] risperidone [From Risperdal] Allergy Other Verified 11/30/22 14:01 venlafaxine HCl Allergy Other Verified 11/30/22 14:01 [From Effexor] perfume AdvReac Other Verified 11/30/22 14:01 Surgical History Hx of craniotomy Hx of prostatectomy Social History Smoking Status: Never smoker ROS ROS ED ROS Narrative Social: Noncontributory Medications: Reviewed Past medical history: Reviewed Review of systems General: Head injury but no loss of consciousness HEENT: No facial injury Neck: No neck pain Cardiovascular: Patient denies any chest pain or palpitations Chest wall: Chest wall pain wound Respiratory: There is no shortness of breath GI: There is no nausea vomiting diarrhea or abdominal pain, no abdominal wall contusions Skin: Right leg wound Neurological: Patient has no memory loss, confusion, or any focal weakness Psychiatric: No recent behavioral changes Back: No back pain, no problems with ambulation Musculoskeletal: As in HPI EXAM Physical Exam Narrative Exam Narrative: Physical exam General: Patient appears somewhat uncomfortable Head: Normocephalic, 2 centimeter scalp laceration Eyes: Conjunctiva not pale ENT: Moist mucous membranes Neck: Supple, Nontender, No lymphadenopathy Cardiovascular: Regular rate, Regular rhythm Chest wall: Right-sided chest wall tenderness no obvious contusions. Respiratory: No distress, CTA bilaterally Abdomen: Soft, Nontender, Nondistended Back: Nontender, Normal Inspection. Negative for: CVA tenderness Extremities: There are 2 areas that can approximate well with an area of about 5 cm in diameter that is missing tissue. Skin: Normal color, No rash Neurological: Alert, Normal Strength, Normal Sensation Psychological: Normal affect Const Vital Signs: 11/30/22 14:02 11/30/22 14:29 Temperature 97.3 F L Temperature Source Temporal Pulse Rate 74 Respiratory Rate 16 Respiratory Effort Normal Respiratory Depth Shallow Blood Pressure 93/54 L Blood Pressure Mean 67 Pulse Ox 100 Oxygen Delivery Method Room Air MDM MDM MDM Narrative Medical decision making narrative: Procedure note: 1. Leg laceration total of 16 cm There are 2 areas that can approximate well with an area of about 5 cm in diameter that is missing tissue. This only has soft tissue and adipose tissue exposed. The 2 areas that can be approximated are not precipitated, there each 7 cm. A total of 11 of the 4-0 nylon sutures were placed. I used 1% lidocaine, Shur-Clens and wound was irrigated and cleansed well. 2. Scalp laceration. I used Laure-Joseph, verbal consent. 2 munira were placed without any difficulty wound approximated well. MDM: Patient has a normal CT of the head, C-spine is negative but on the C-spine x-ray there is a very small apical pneumothorax which is not seen on the rib or chest x-ray. He has no respiratory distress and he appears well he has normal pulse ox and respiratory rate therefore I do not believe a chest tube is needed, I do not believe admission is needed especially that he feels relatively well. Wounds were approximated see 2 different procedure notes. I talked to and that okay with the plan. Because of there is still a defect in the wound due to skin and tissue loss, I will send the patient to the wound clinic. Tetanus was updated and patient will be placed on antibiotics. Wound care was explained. Radiography Diagnostic Testing: Clinical Impression(s) from Imaging Studies Brain CT 11/30/22 14:13 IMPRESSION: 1. No CT evidence of intracranial bleeding, acute ischemic infarct or acute intracranial abnormality. 2. Focal cystic encephalomalacia and atrophy in the right middle frontal gyrus. This was present previously. Electronically Signed: Dony Mixon MD at 15:09 EDT , Cervical Spine CT 11/30/22 14:[address]: [address] evidence of acute fracture of the cervical spine, craniocervical junction and cervicothoracic junction. 2. Mild degenerative anterolisthesis of C7 on T1. 3. Small right apical pneumothorax. Electronically Signed: Dony Mixon MD at 15:13 EDT , ADDENDUM: 11/30/22 1527 IMPRESSION: 1. No CT evidence of acute fracture of the cervical spine, craniocervical junction and cervicothoracic junction. 2. Mild degenerative anterolisthesis of C7 on T1. 3. Small right apical pneumothorax. N.B. : The above Results were Read Back by Dony Mixon MD to Elbert Burton MD, and understanding confirmed on 11/30/2022 15:20:20 (ET). Electronically Signed: Dony Mixon MD at 15:13 EDT Reading Location ID and State: [facility] / [place] , Service support , Tibia/Fibula X-Ray 11/30/22 14:13 IMPRESSION: 1. No acute fracture or dislocation of the right tibia and fibula. 2. Soft tissue laceration overlying the mid fibular shaft.. Electronically Signed: Dony Mixon MD at 16:10 EDT Reading Location ID and State: [facility] / [place] , Service support , Ribs w/Chest X-Ray 11/30/22 14:45 IMPRESSION: No suspicious acute fractures of the right rib cage or acute cardiopulmonary pathology. The right apical pneumothorax seen on CT cervical spine is not obvious on chest radiograph. Electronically Signed: Dony Mixon MD at 16:06 EDT , Discharge Plan Triage Chief Complaint: Fall ED Provider: Elbert Burton Dx/Rx/DC Orders Clinical Impression: Pneumothorax, Laceration of leg, Complex laceration of scalp, Fall Instructions: Pneumothorax (Collapsed Lung), ED Head Injury (Adult), ED Laceration Extremity Prescriptions: New oxycodone-acetaminophen [Percocet] 5-325 mg tablet 1 tab PO Q8H PRN (Reason: pain) 3 Days Qty: 12 0RF cephalexin 500 mg capsule 500 mg PO Q6 Qty: 40 0RF No Action lorazepam 0.5 MG tablet 0.5 mg PO DAILY PRN PRN (Reason: Sleep) trazodone 100 MG tablet 50 - 100 mg PO DAILY fluticasone propionate 1 SPRAY spray,suspension 1 spray NASAL DAILY duloxetine 20 MG capsule 1 tab PO DAILY Patient Comments: TAKE 1 CAPSULE BY MOUTH ONCE DAILY modinigwsh-wureqewplnpfd-erfc 50-325-40 mg tablet 1 tab PO PRN PRN (Reason: Headache) Patient Comments: TAKE 1 CAPSULE BY MOUTH ONCE DAILY NEEDED FOR SEVERE HEADACHE potassium chloride 20 mEq tablet,ER particles/crystals 20 meq PO DAILY midodrine 2.5 mg tablet 2.5 mg PO DAILY Patient Comments: TAKE 1 TABLET BY MOUTH TWICE DAILY fludrocortisone 0.1 mg tablet 0.1 mg PO DAILY Patient Comments: TAKE 1 TABLET BY MOUTH ONCE DAILY Colace 100 mg PO/SL DAILY hydrocodone-acetaminophen [hydrocodone-acetaminophen] 1 TABLET tablet 1 tab PO Q6H PRN PRN (Reason: Pain) 3 Days Qty: 10 0RF tamsulosin [Flomax] 0.4 mg capsule 0.4 mg PO DAILY Qty: 14 0RF ketorolac 10 mg tablet 10 mg PO 4X/DAY PRN PRN (Reason: pain) 5 Days Qty: 20 0RF Rx Instructions: while awake; do not exceed 4 doses per day oxycodone-acetaminophen [Endocet] 5-325 mg tablet 1 tab PO Q6H PRN (Reason: pain) 3 Days Qty: 12 0RF Primary Care Provider: Max Cason Referrals: Max Cason MD [Primary Care Provider] - 3-5 Days Disposition Disposition: Home, Self Care
[2022-11-30] MEDS: Oxycodone/Apap 5/325 Tablet PO (14:24)
[2022-11-30] MEDS: Cephalexin 250 MG Capsule 500 MG PO (14:25)
[2022-11-30] MEDS: Diphth,Pertuss(Acell),Tet Vac 0.5 ML Vial IM (14:25)
--- NOTE | 2022-11-30 14:45 | RAD_ITS ---
EXAM: XR RIGHT RIBS AND AP CHEST, 3 OR MORE VIEWS CLINICAL INDICATION: Trauma injury. TECHNIQUE: Frontal and oblique views of the right ribs and frontal view of the chest. COMPARISON: No relevant prior studies available. FINDINGS: LUNGS AND PLEURAL SPACES: No suspicious infiltrates. HEART: Unremarkable. Cardiac silhouette not enlarged. MEDIASTINUM: Central airways and mediastinal contour are unremarkable. BONES/JOINTS: Unremarkable. No obvious acute fractures of the right rib cage although there is right apical pneumothorax on the CT cervical spine. VASCULATURE: Calcified plaques along the right common carotid artery. RAD/Ribs Uni Min 3V w/PA Chest IMPRESSION: No suspicious acute fractures of the right rib cage or acute cardiopulmonary pathology. The right apical pneumothorax seen on CT cervical spine is not obvious on chest radiograph. Electronically Signed: Dony Mixon MD at 16:06 EDT ,
== END 2022-11-30 17:45 | disposition home or self-care (01) ==
PROVIDERS: Emergency Provider Emergency Medicine; PCP Family Medicine; Visit Provider Emergency Medicine
DX: S81.811A Laceration without foreign body, right lower leg, initial encounter (principal); S01.01XA Laceration without foreign body of scalp, initial encounter; W11.XXXA Fall on and from ladder, initial encounter; J93.9 Pneumothorax, unspecified; Z23 Encounter for immunization
CPT/HCPCS: 12005; 70450; 71101; 72125; 73590; 90471; 90715; 99284

== ENCOUNTER 2022-12-02 12:29 | Emergency (ER) | payer MEDICARE, SELFPAY ==
[2022-12-02 12:30] VITALS: BP 105/58; PULSE 78; RESP 16; TEMP 36.4; O2SAT 99
[2022-12-02 13:21] VITALS: BMI 20.2
--- NOTE | 2022-12-02 13:42 | EX.ED.DYSGE1 ---
HPI <BELEM Godoy - Last Filed: 12/02/22 18:25> History of Present Illness Chief Complaint: Wound Narrative Narrative: Patient presenting today after being sent over from his PCPs office. He was being evaluated due to a a fall off a ladder that occurred 2 days ago, he was originally seen here and was found to have a complex laceration to his right lower leg and scalp. He also has right rib contusions with a small right apical pneumothorax. He has continued to have right-sided rib pain. He was referred to the wound care center and has an appointment on . His PCP is requesting that we get him into the wound care clinic sooner and also give him supplies to help care for his wound. He denies any shortness of breath or chest pain, no fever or chills. He is on Keflex for the leg wound. He has not noticed any surrounding erythema or purulent discharge. [facility] <BELEM Godoy - Last Filed: 12/02/22 18:25> [facility] Medical History Hypotension Prostate CA Prostate CA Pulmonary embolism Stroke Stroke/cerebrovascular accident Subarachnoid hemorrhage Home Medications fluticasone propionate 50 mcg/actuation nasal spray,suspension 1 spray DAILY 08/13/14 [History Last Taken Unknown] lorazepam 0.5 mg tablet 0.5 mg PO DAILY PRN PRN Sleep 08/13/14 [History Last Taken Unknown] trazodone 100 mg tablet 50 - 100 mg PO DAILY 08/13/14 [History Last Taken Unknown] duloxetine 20 mg capsule,delayed release 1 tab PO DAILY 12/29/18 [History Last Taken Unknown] Colace 100 mg PO/SL DAILY 11/29/20 [History Last Taken Unknown] ujvcupznhg-emwsqbazgahiq-rpajnlys 50 mg-325 mg-40 mg tablet 1 tab PO PRN PRN Headache 11/29/20 [History Last Taken Unknown] fludrocortisone 0.1 mg tablet 0.1 mg PO DAILY 11/29/20 [History Last Taken Unknown] hydrocodone-acetaminophen 5-325mg 5mg-325mg 1 tab PO Q6H PRN PRN Pain 3 days #10 TABLETS 11/29/20 [Rx Last Taken Unknown] midodrine 2.5 mg tablet 2.5 mg PO DAILY 11/29/20 [History Last Taken Unknown] potassium chloride 20 mEq tablet,extended release(part/cryst) 20 meq PO DAILY 11/29/20 [History Last Taken Unknown] ketorolac 10 mg tablet 10 mg PO 4X/DAY PRN PRN pain 5 days #20 tabs 06/09/22 [Rx Last Taken Unknown] tamsulosin 0.4 mg capsule (Flomax) 0.4 mg PO DAILY #14 caps 06/09/22 [Rx Last Taken Unknown] cephalexin 500 mg capsule 500 mg PO Q6 #40 CAPSULES 11/30/22 [Rx Last Taken Unknown] Allergy/AdvReac Type Severity Reaction Status Date / Time Penicillins Allergy Other Verified 11/30/22 14:01 promethazine HCl Allergy Other Verified 11/30/22 14:01 [From Phenergan] risperidone [From Risperdal] Allergy Other Verified 11/30/22 14:01 venlafaxine HCl Allergy Other Verified 11/30/22 14:01 [From Effexor] perfume AdvReac Other Verified 11/30/22 14:01 Surgical History Hx of craniotomy Hx of prostatectomy Social History household members: spouse Smoking Status: Never smoker ROS <BELEM Godoy - Last Filed: 12/02/22 18:25> ROS ED Constitutional Constitutional ED: Denies chills or fever(s) Eyes Eyes: Denies blurry vision Cardiovascular Cardiovascular: Denies chest pain Respiratory/Chest Respiratory/Chest: Denies cough or dyspnea Gastrointestinal Gastrointestinal: Denies abdominal pain, nausea or vomiting Musculoskeletal Musculoskeletal: Denies arthralgias, myalgias or neck pain Integumentary Denies abscess, Abrasions or rash Neurologic Neurologic: Denies confusion, dizziness or paresthesias Psychiatric Psychiatric: Denies anxiety, depression, suicidal ideation or suicidal thoughts Allergic/Immunologic Allergic/Immunologic ED: Denies lip swelling, mouth swelling or urticaria EXAM <BELEM Godoy - Last Filed: 12/02/22 18:25> Physical Exam Const Vital Signs: 12/02/22 12:30 12/02/22 15:00 12/02/22 15:00 Temperature 97.5 F L Temperature Source Temporal Pulse Rate 78 70 Respiratory Rate 16 24 H Blood Pressure 105/58 L 118/62 Blood Pressure Mean 73 80 Pulse Ox 99 94 94 Oxygen Delivery Method Room Air Nasal Cannula Nasal Cannula Oxygen Flow Rate (L/min) 2 2 12/02/22 15:00 12/02/22 16:30 12/02/22 18:00 Temperature 98.7 F 98.8 F 98.8 F Temperature Source Temporal Temporal Temporal Pulse Rate 70 74 75 Respiratory Rate 22 H 18 28 H Blood Pressure 118/62 139/88 H 154/80 H Blood Pressure Mean 80 105 104 Pulse Ox 94 99 100 Oxygen Delivery Method Nasal Cannula Nasal Cannula Nasal Cannula Oxygen Flow Rate (L/min) 2 4 2 Positive well nourished, well developed and no apparent distress General Appearance ED: well developed HEENT Reports normocephalic and head/scalp atraumatic Mouth ED: Yes moist mucous membranes normal Eyes PERRL and EOMs intact bilaterally Neck full ROM and supple Chest Wall inspection of chest normal Chest Narrative: Tenderness to palpation along the right lateral rib cage. Resp normal respiratory effort and clear to auscultation bilaterally Cardio regular rate and regular rhythm GI soft to palpation, non-tender, non-distended and no masses Back/Spine normal ROM and normal to inspection Extremity full ROM Extremity Narrative: Complex wound to the right lower leg with about 5 cm of tissue loss. No surrounding erythema, no purulent discharge. Neuro oriented x3, CN's II-XII intact bilaterally, moves all extremities, no focal motor deficits and no sensory deficits noted Sensorium / Orientation: awake and alert Psych mental status grossly normal and thought process normal Skin no rashes or lesions noted and no wounds <Dr. Karthik Ramirez, DO - Last Filed: 12/02/22 17:44> Physical Exam Const Vital Signs: 12/02/22 12:30 12/02/22 15:00 12/02/22 15:00 Temperature 97.5 F L Temperature Source Temporal Pulse Rate 78 70 Respiratory Rate 16 24 H Blood Pressure 105/58 L 118/62 Blood Pressure Mean 73 80 Pulse Ox 99 94 94 Oxygen Delivery Method Room Air Nasal Cannula Nasal Cannula Oxygen Flow Rate (L/min) 2 2 12/02/22 15:00 12/02/22 16:30 12/02/22 18:00 Temperature 98.7 F 98.8 F 98.8 F Temperature Source Temporal Temporal Temporal Pulse Rate 70 74 75 Respiratory Rate 22 H 18 28 H Blood Pressure 118/62 139/88 H 154/80 H Blood Pressure Mean 80 105 104 Pulse Ox 94 99 100 Oxygen Delivery Method Nasal Cannula Nasal Cannula Nasal Cannula Oxygen Flow Rate (L/min) 2 4 2 MDM <BELEM Godoy - Last Filed: 12/02/22 18:25> [facility] MDM Narrative Medical decision making narrative: Patient presenting after being sent by his PCP office. He has a complex wound to his right lower leg after falling off a ladder 2 days ago. His PCP wanted us to get him into the wound care center sooner than . We are not able to get him in any quicker. However, we will give him wound care instructions and supplies. I did obtain a chest x-ray to evaluate his pneumothorax that was not originally seen on his chest x-ray from 11/30. This was instead seen on the cervical spine CT and was read as a small right apical pneumo. He is not having any shortness of breath but has continued to have right-sided rib pain. I do suspect that he has rib fractures. Chest x-ray here shows a 15% right-sided hydropneumothorax. Attending did speak with Dr. Reed who recommends obtaining a chest CT. Patient does have multiple rib fractures and will require a chest tube, this was placed by Dr. Reed, he recommends transfer to trauma center. Chest CT does show fractures to ribs 7-10 along with the 15% right hydropneumothorax. Infiltrates to the right middle and lower lobes. He will be started on Levaquin. Basic labs obtained. I spoke with Dr. Webster at [facility] ED who is excepting of transfer. He will be transferred in stable condition. Lab Data Attestation: I reviewed the patient's lab results. Labs: Laboratory Results - last 24 hr 12/02/22 16:33 WBC 7.1 RBC 3.99 L Hgb 12.5 L Hct 39.0 L MCV 97.7 H MCH 31.3 MCHC 32.1 RDW Std Deviation 48.0 H RDW Coeff of Joanie 13.3 Plt Count 161 MPV 10.0 Immature Gran % (Auto) 0.400 Neut % (Auto) 74.1 H Lymph % (Auto) 9.3 L Hanson % (Auto) 14.9 H Eos % (Auto) 0.7 Baso % (Auto) 0.6 Absolute Neuts (auto) 5.3 Absolute Lymphs (auto) 0.66 L Nucleated RBC % 0 Sodium 138 Potassium 4.1 Chloride 103 Carbon Dioxide 32.0 Anion Gap 3 L BUN 31 H Creatinine 0.87 Estim Creat Clear Calc 67.64 Est GFR (MDRD) Af Amer 110 Est GFR (MDRD) Non-Af 91 BUN/Creatinine Ratio 35.6 H Glucose 117 H Calcium 8.8 Radiography X-Ray: Read by ED Physician and Read by Radiologist Diagnostic Testing: Clinical Impression(s) from Imaging Studies Chest X-Ray 12/02/22 13:54 IMPRESSION: 15% right-sided hydropneumothorax with right basilar infiltrate and/or atelectasis. Electronically Signed: Martin Martinez MD at 14:36 EDT , Chest CT 12/02/22 14:53 IMPRESSION: Right lower rib fractures with a 15% right-sided pneumothorax with the consolidation in the right lower lobe and patchy consolidation in the right middle lobe. Mild increased markings in the left lower lobe. Small amount of subcutaneous emphysema overlying the posterior right lower hemithorax. Electronically Signed: Martin Martinez MD at 15:45 EDT , Chest X-Ray 12/02/22 16:15 IMPRESSION: Tiny residual right apical pneumothorax status post chest tube placement. Electronically Signed: Max Anne MD at 16:31 EDT , <Dr. Karthik Ramirez, DO - Last Filed: 12/02/22 17:44> [facility] Lab Data Labs: Laboratory Results - last 24 hr 12/02/22 16:33 WBC 7.1 RBC 3.99 L Hgb 12.5 L Hct 39.0 L MCV 97.7 H MCH 31.3 MCHC 32.1 RDW Std Deviation 48.0 H RDW Coeff of Joanie 13.3 Plt Count 161 MPV 10.0 Immature Gran % (Auto) 0.400 Neut % (Auto) 74.1 H Lymph % (Auto) 9.3 L Hanson % (Auto) 14.9 H Eos % (Auto) 0.7 Baso % (Auto) 0.6 Absolute Neuts (auto) 5.3 Absolute Lymphs (auto) 0.66 L Nucleated RBC % 0 Sodium 138 Potassium 4.1 Chloride 103 Carbon Dioxide 32.0 Anion Gap 3 L BUN 31 H Creatinine 0.87 Estim Creat Clear Calc 67.64 Est GFR (MDRD) Af Amer 110 Est GFR (MDRD) Non-Af 91 BUN/Creatinine Ratio 35.6 H Glucose 117 H Calcium 8.8 Radiography Diagnostic Testing: Clinical Impression(s) from Imaging Studies Chest X-Ray 12/02/22 13:54 IMPRESSION: 15% right-sided hydropneumothorax with right basilar infiltrate and/or atelectasis. Electronically Signed: Martin Martinez MD at 14:36 EDT , Chest CT 12/02/22 14:53 IMPRESSION: Right lower rib fractures with a 15% right-sided pneumothorax with the consolidation in the right lower lobe and patchy consolidation in the right middle lobe. Mild increased markings in the left lower lobe. Small amount of subcutaneous emphysema overlying the posterior right lower hemithorax. Electronically Signed: Martin Martinez MD at 15:45 EDT , Chest X-Ray 12/02/22 16:15 IMPRESSION: Tiny residual right apical pneumothorax status post chest tube placement. Electronically Signed: Max Anne MD at 16:31 EDT , Treatment and Re-Evaluation :: I have personally performed a face to face assessment of the patient and have reviewed the CHAS Note. I performed a substantive portion of the visit including all aspects of the following. My townsend findings include: History: Patient presents with right rib pain and open wound to his right lower leg that occurred after a fall 2 days ago. Patient was seen here at that time. Patient had negative rib x-rays at that time. Patient had a CT scan of his cervical spine which showed a small apical pneumothorax. Patient had sutures placed in his right lower leg. Patient followed up with his primary care physician today who referred the patient to the emergency department to see if the patient could get into the wound care center sooner than his scheduled appointment in 3 days. PCP also noted some subcutaneous emphysema in the right posterior thorax and was concerned that the pneumothorax could be getting bigger. Patient denies any shortness of breath. Patient admits to pain over the right chest wall that is worse with any movement. Exam: Vital signs are stable. Patient is afebrile. Patient is in no acute distress. Oral mucosa is pink and moist. Neck is supple. Trachea is midline. There is some subcutaneous emphysema over the posterior aspect of the right lower ribs. There is no bony crepitance or step-off. Lungs are clear and equal bilaterally. Heart was regular rate and rhythm. Abdomen is soft. Bowel sounds are normal. There is no tenderness. There is no rebound or guarding noted. Cranial nerves II through XII are intact. There are no focal motor or sensory deficits noted. There is a healing wound over the anterolateral aspect of the right lower leg. There is no surrounding erythema. Sutures are in place. There is no discharge or drainage noted. Medical Decision Making: Chest x-ray will be obtained to assess for pneumothorax. Chest x-ray was obtained. There are 2 views. On my independent interpretation, there is a 15% hydropneumothorax on the right. Radiologist also interpreted the x-ray and agrees. Case was discussed with Dr. Reed. He recommended obtaining a CT scan of the chest for further assessment of possible rib fractures. This was obtained. CT scan of the chest showed fractures of the seventh, eighth, ninth, and 10th ribs along with a 15% hydropneumothorax on the right. There is right lower lobe and right middle lobe infiltrates noted. This was interpreted by the radiologist and was also independently reviewed by myself. Dr. Reed came in to evaluate the patient and placed a 36 Bulgar[place] chest tube in the right chest. He recommended transferring the patient to a trauma center due to the multiple rib fractures. CBC will be obtained to assess for leukocytosis and anemia. Basic metabolic profile will be obtained to assess for electrolyte abnormality and renal function. Patient was given a dose of Levaquin here. Patient and family understand and are agreeable with the plan. All questions were answered. Case was discussed with [facility]. They will accept the patient for transfer. Discharge Plan Triage Chief Complaint: Wound ED Midlevel Provider: Lisa Fernando ED Provider: Karthik Ramirez Dx/Rx/DC Orders Clinical Impression: Fracture of ribs, multiple, Pneumothorax, Leg wound, right Prescriptions: No Action lorazepam 0.5 MG tablet 0.5 mg PO DAILY PRN PRN (Reason: Sleep) trazodone 100 MG tablet 50 - 100 mg PO DAILY fluticasone propionate 1 SPRAY spray,suspension 1 spray NASAL DAILY duloxetine 20 MG capsule 1 tab PO DAILY Patient Comments: TAKE 1 CAPSULE BY MOUTH ONCE DAILY yuxbwbazjp-wnhwqhhdsyfkd-dlwg 50-325-40 mg tablet 1 tab PO PRN PRN (Reason: Headache) Patient Comments: TAKE 1 CAPSULE BY MOUTH ONCE DAILY NEEDED FOR SEVERE HEADACHE potassium chloride 20 mEq tablet,ER particles/crystals 20 meq PO DAILY midodrine 2.5 mg tablet 2.5 mg PO DAILY Patient Comments: TAKE 1 TABLET BY MOUTH TWICE DAILY fludrocortisone 0.1 mg tablet 0.1 mg PO DAILY Patient Comments: TAKE 1 TABLET BY MOUTH ONCE DAILY Colace 100 mg PO/SL DAILY hydrocodone-acetaminophen [hydrocodone-acetaminophen] 1 TABLET tablet 1 tab PO Q6H PRN PRN (Reason: Pain) 3 Days Qty: 10 0RF tamsulosin [Flomax] 0.4 mg capsule 0.4 mg PO DAILY Qty: 14 0RF ketorolac 10 mg tablet 10 mg PO 4X/DAY PRN PRN (Reason: pain) 5 Days Qty: 20 0RF Rx Instructions: while awake; do not exceed 4 doses per day cephalexin 500 mg capsule 500 mg PO Q6 Qty: 40 0RF Primary Care Provider: Max Cason Referrals: Max Cason MD [Primary Care Provider] - Disposition Disposition: Acute Care Hospital Discharge Location: [facility]
--- NOTE | 2022-12-02 13:54 | RAD_ITS ---
STUDY: X-RAY CHEST REASON FOR EXAM: Male, 72 years old. Hx pneumothorax -- -- FALL ON FRIDAY, CONTINUED POSTERIOR/AXILLARY RIB PAIN TECHNIQUE: AP and lateral views of the chest. COMPARISON: Comparison is made with prior study dated December 29, 2018. FINDINGS: There is evidence of an approximately 15% right-sided hydropneumothorax. Infiltrate and/or atelectasis is seen at the right lung base. Mild scarring at the left lung base. Normal size heart. Normal mediastinum and caden. Normal visualized pulmonary arteries. There is atherosclerotic calcification of the aortic arch with tortuosity. There are degenerative changes of the visualized thoracic spine. Normal visualized ribs, clavicles, and shoulders. There is no demonstrated abnormality of the visualized soft tissue structures of the upper abdomen. RAD/Chest PA and Lateral IMPRESSION: 15% right-sided hydropneumothorax with right basilar infiltrate and/or atelectasis. Electronically Signed: Martin Martinez MD at 14:36 EDT ,
--- NOTE | 2022-12-02 14:53 | CT_ITS ---
STUDY: CT CHEST WITHOUT CONTRAST REASON FOR EXAM: Male, 72 years old. Pneumothorax following a recent fall. Right-sided rib pain. RADIATION DOSAGE (If Supplied By Facility): CTDIvol = ( 7.36 ) mGy, DLP = ( 255.72 ) mGycm TECHNIQUE: Transaxial imaging was performed without the administration of intravenous contrast material. Multiplanar coronal and sagittal images were reformatted. Individualized dose optimization techniques were used for this CT. COMPARISON: Comparison is made with prior chest radiograph done earlier today. FINDINGS: CHEST Mild amount of subcutaneous emphysema overlying the posterior right chest wall. There is a 15% right-sided pneumothorax with the consolidation in the right lower lobe as well as in the right middle lobe. Increased markings at the left lung base suggestive of atelectasis. Normal heart and pericardium. Normal mediastinum. Normal hilar regions. Normal unenhanced pulmonary arteries. Normal aorta arch and descending thoracic aorta. There is evidence of a slightly depressed fracture of the right seventh or eighth rib as well as nondisplaced fractures involving the right ninth and 10th ribs. There is no demonstrated abnormality of the visualized upper abdomen. CT/Chest without Contrast IMPRESSION: Right lower rib fractures with a 15% right-sided pneumothorax with the consolidation in the right lower lobe and patchy consolidation in the right middle lobe. Mild increased markings in the left lower lobe. Small amount of subcutaneous emphysema overlying the posterior right lower hemithorax. Electronically Signed: Martin Martinez MD at 15:45 EDT ,
[2022-12-02 15:00] VITALS: BP 118/62; PULSE 70; RESP 22; RESP 24; TEMP 37.1; O2SAT 94
--- NOTE | 2022-12-02 16:15 | RAD_ITS ---
STUDY: X-RAY CHEST REASON FOR EXAM: Male, 72 years old. Chest tube placement TECHNIQUE: AP portable COMPARISON: December 03, 2019 05/27/2013 p.m. FINDINGS: There is a tiny residual right apical pneumothorax status post chest tube placement with mild right basilar atelectasis. There is also mild residual subsegmental atelectasis in the left lower lobe . Normal size heart. Normal mediastinum and caden. Normal visualized pulmonary arteries. Mildly calcified aortic arch and descending thoracic aorta. Dorsal spine and shoulders demonstrate degenerative change Normal visualized ribs, and clavicles. There is no demonstrated abnormality of the visualized soft tissue structures of the upper abdomen. RAD/Chest 1 View (Portable) IMPRESSION: Tiny residual right apical pneumothorax status post chest tube placement. Electronically Signed: Max Anne MD at 16:31 EDT ,
--- NOTE | 2022-12-02 16:28 | CON.PCM.SX_ITS ---
Assessment & Plan Assessment/Plan (1) Pneumothorax: QUALIFIERS: Pneumothorax type: traumatic Encounter type: initial encounter Qualified Code(s): S27.0XXA - Traumatic pneumothorax, initial encounter PLAN: The patient had a fall 2 days ago. He presented with chest pain and an x- ray revealed pneumothorax on the right. He had a chest CT which revealed it was a hemopneumothorax with 4 rib fractures. Patient also appears to have a small flail segment. Given the hemothorax and the flail segment I would recommend that this patient be transferred to a trauma center for localized pain control and possible fixation. I discussed the risks of chest tube placement with the patient and his in detail and then placed a 36 [place] chest tube on the right. Immediately I received 200 cc of dark red blood. The patient's chest x- ray showed that the lung was fully expanded and the chest tube was in good position. Patient does have air leak. Patient will also be given antibiotics for the wound on his right lower leg. Chon Reed MD Pager: [facility] [address] [place] [address], [address] [place] [address] Office: HPI Consult Data Date of Consult: 12/02/22 HPI Narrative HPI Narrative: IRINA CARBAJAL, is a 72 M who presents with right chest pain. The patient had a fall 2 days ago. [facility] Medical History Hypotension Prostate CA Prostate CA Pulmonary embolism Stroke Stroke/cerebrovascular accident Subarachnoid hemorrhage Home Medications fluticasone propionate 50 mcg/actuation nasal spray,suspension 1 spray DAILY 08/13/14 [History Last Taken Unknown] lorazepam 0.5 mg tablet 0.5 mg PO DAILY PRN PRN Sleep 08/13/14 [History Last Taken Unknown] trazodone 100 mg tablet 50 - 100 mg PO DAILY 08/13/14 [History Last Taken Unknown] duloxetine 20 mg capsule,delayed release 1 tab PO DAILY 12/29/18 [History Last Taken Unknown] Colace 100 mg PO/SL DAILY 11/29/20 [History Last Taken Unknown] vdlvxwnjfa-smpnuugwxlsns-qzvcxork 50 mg-325 mg-40 mg tablet 1 tab PO PRN PRN Headache 11/29/20 [History Last Taken Unknown] fludrocortisone 0.1 mg tablet 0.1 mg PO DAILY 11/29/20 [History Last Taken Unknown] hydrocodone-acetaminophen 5-325mg 5mg-325mg 1 tab PO Q6H PRN PRN Pain 3 days #10 TABLETS 11/29/20 [Rx Last Taken Unknown] midodrine 2.5 mg tablet 2.5 mg PO DAILY 11/29/20 [History Last Taken Unknown] potassium chloride 20 mEq tablet,extended release(part/cryst) 20 meq PO DAILY 11/29/20 [History Last Taken Unknown] ketorolac 10 mg tablet 10 mg PO 4X/DAY PRN PRN pain 5 days #20 tabs 06/09/22 [Rx Last Taken Unknown] tamsulosin 0.4 mg capsule (Flomax) 0.4 mg PO DAILY #14 caps 06/09/22 [Rx Last Taken Unknown] cephalexin 500 mg capsule 500 mg PO Q6 #40 CAPSULES 11/30/22 [Rx Last Taken Unknown] Allergy/AdvReac Type Severity Reaction Status Date / Time Penicillins Allergy Other Verified 11/30/22 14:01 promethazine HCl Allergy Other Verified 11/30/22 14:01 [From Phenergan] risperidone [From Risperdal] Allergy Other Verified 11/30/22 14:01 venlafaxine HCl Allergy Other Verified 11/30/22 14:01 [From Effexor] perfume AdvReac Other Verified 11/30/22 14:01 Surgical History Hx of craniotomy Hx of prostatectomy Social History household members: spouse Smoking Status: Never smoker ROS Constitutional Constitutional: Denies anorexia, fatigue or fever(s) Eyes Eyes: Denies blurry vision ENT HEENT: Denies abnormal hearing Cardiovascular Cardiovascular: Reports chest pain and dyspnea Respiratory/Chest Respiratory/Chest: Reports shortness of breath with exertion; Denies cough or wheezing Gastrointestinal Gastrointestinal: Denies abdominal pain, nausea or vomiting Genitourinary Genitourinary: Denies change in urinary stream Integumentary Integumentary: Denies jaundice Physical Exam Const alert and oriented x3 HEENT normocephalic Eyes PERRL Resp normal respiratory effort Cardio Rate: regular rate Rhythm: regular rhythm GI soft to palpation and non-tender Extremity normal to inspection Neuro CN's II-XII intact bilaterally Radiology Impression Chest X-Ray 12/02/22 13:54 IMPRESSION: 15% right-sided hydropneumothorax with right basilar infiltrate and/or atelectasis. Electronically Signed: Martin Martinez MD at 14:36 EDT , Chest CT 12/02/22 14:53 IMPRESSION: Right lower rib fractures with a 15% right-sided pneumothorax with the consolidation in the right lower lobe and patchy consolidation in the right middle lobe. Mild increased markings in the left lower lobe. Small amount of subcutaneous emphysema overlying the posterior right lower hemithorax. Electronically Signed: Martin Martinez MD at 15:45 EDT ,
[2022-12-02 16:30] VITALS: BP 139/88; PULSE 74; RESP 18; TEMP 37.1; O2SAT 99
--- NOTE | 2022-12-02 16:32 | PCM.OPRPT ---
Report of Operation Date of Procedure: 12/02/22 Pre-Operative Diagnosis: Right pneumothorax Post-Operative Diagnosis: Right hemopneumothorax Surgery/Procedure Performed:: Right chest tube placement Description of Procedure: The patient's right chest was prepped and draped in usual sterile fashion. An area lateral to the nipple was selected and injected with local anesthetic. A small incision was made with a scalpel. The periosteum of the rib was injected with local anesthetic as well as the intercostal space. Just above the rib a window was made with a hemostat and then the pleura was punctured. There was a huertas of air. Next the tube was placed into the chest cavity. Once it was placed to suction there was return of dark red old blood. The catheter was sutured to the using 0 silk suture. Bandages were applied. Chest tube was placed to suction. Chest x-ray will be obtained. Admit VTE Documentation VTE Mechan Device Prophylaxis: SCD's
[2022-12-02 16:40] LABS: Absolute Lymphocyte Count 0.66 X10^3/uL (0.83-4.51); Absolute Neutrophil Count 5.3 X10^3/uL (2.0-7.7); Basophil# 0.04 X10^3/uL; Basophil% 0.6 % (0-1); Eosinophil# 0.05 X10^3/uL; Eosinophils% 0.7 % (0-5); Hemoglobin 12.5 g/dL (13.0-16.5); Lymphocyte # 0.66 X10^3/ul (0.83-4.51); Lymphocyte % 9.3 % (19-41); Mean Corp Hgb Conc 32.1 g/dL (32-36); Mean Corpuscular Hgb 31.3 pg (27.0-32.0); Mean Corpuscular Volume 97.7 fL (80-94); Monocyte# 1.06 X10^3/uL; Monocyte% 14.9 % (0-10); NRBC Flagged by Analyzer 0 % (0-5); Neutrophil # 5.29 X10^3/uL (2.7-7.7); Neutrophil % 74.1 % (47-70); Platelet Count 161 K/mm3 (150-450); RBC Distribution Width CV 13.3 % (11.6-14.6); Red Blood Count 3.99 M/mm3 (4.6-6.2); White Blood Count 7.1 K/mm3 (4.4-11.0)
--- NOTE | 2022-12-02 16:58 | NURSING ---
CALLED [facility] [place] 90 MIN
[2022-12-02 16:59] LABS: Anion Gap 3 (5-15); BUN 31 mg/dL (7-18); BUN/Creat Ratio 35.6 RATIO (10-20); Calcium,Total 8.8 mg/dL (8.5-10.1); Chloride 103 mmol/L (98-107); Creatinine, Serum 0.87 mg/dL (0.70-1.30); EST Glomerular Filtration Rate 91 mL/min (>60); Est Glom Filt Rate - Afr Amer 110 mL/min (>60); Estimated Creatinine Clearance 67.64 ml/min; Glucose 117 mg/dL (74-106); Potassium 4.1 mmol/L (3.5-5.1); Sodium Level 138 mmol/L (136-145)
[2022-12-02 18:00] VITALS: BP 154/80; PULSE 75; RESP 28; TEMP 37.1; O2SAT 100
[2022-12-02] MEDS: levoFLOXacin IV 750 MG/150 ML BAG 100 MG IV (18:03)
[2022-12-02 18:50] VITALS: BP 135/82; PULSE 80; RESP 18; TEMP 37; O2SAT 96
[2022-12-02 19:22] VITALS: BP 150/70; PULSE 89; RESP 28; TEMP 36.8; O2SAT 98
[2022-12-02] MEDS: HYDROcodone Bitartrate/Apap 5/325 Tablet PO (20:10)
== END 2022-12-02 20:32 | disposition short-term general hospital (02) ==
PROVIDERS: Physician Assistant; Emergency Provider Emergency Medicine; PCP Family Medicine; Visit Provider Emergency Medicine
DX: S22.41XA Multiple fractures of ribs, right side, initial encounter for closed fracture (principal); S27.2XXA Traumatic hemopneumothorax, initial encounter; Z79.899 Other long term (current) drug therapy
CPT/HCPCS: 32551; 71045; 71046; 71250; 80048; 85025; 96365; 96366; 99283; A4216

== ENCOUNTER 2022-12-09 13:06 | Observation (INO) | payer MEDICARE, SELFPAY ==
[2022-12-09 13:08] VITALS: BP 105/71; PULSE 71; RESP 16; TEMP 36.1; O2SAT 98
[2022-12-09 14:08] LABS: Absolute Lymphocyte Count 0.63 X10^3/uL (0.83-4.51); Absolute Neutrophil Count 5.3 X10^3/uL (2.0-7.7); Basophil# 0.09 X10^3/uL; Basophil% 1.3 % (0-1); Eosinophil# 0.29 X10^3/uL; Eosinophils% 4.1 % (0-5); Hematocrit 42.2 % (40-54); Hemoglobin 13.4 g/dL (13.0-16.5); Lymphocyte # 0.63 X10^3/ul (0.83-4.51); Mean Corp Hgb Conc 31.8 g/dL (32-36); Mean Corpuscular Hgb 31.1 pg (27.0-32.0); Mean Corpuscular Volume 97.9 fL (80-94); Mean Platelet Vol. 9.9 fl (6.2-12.0); Monocyte# 0.68 X10^3/uL; Monocyte% 9.7 % (0-10); NRBC Flagged by Analyzer 0 % (0-5); Neutrophil # 5.29 X10^3/uL (2.7-7.7); Neutrophil % 75.3 % (47-70); Platelet Count 301 K/mm3 (150-450); RBC Distribution Width CV 13.2 % (11.6-14.6); RBC Distribution Width SD 48.1 fl (35.1-43.9); Red Blood Count 4.31 M/mm3 (4.6-6.2)
[2022-12-09 14:24] LABS: ALB/GLOB Ratio 0.9 RATIO (0.9-2.4); AST(SGOT) 52 U/L (15-37); Alanine Aminotransfer ALT/SGPT 89 U/L (16-61); Albumin, Serum 3.2 g/dL (3.2-5.0); Alkaline Phosphatase 111 U/L (45-117); Anion Gap 5 (5-15); BUN 25 mg/dL (7-18); BUN/Creat Ratio 23.8 RATIO (10-20); Calcium,Total 9.5 mg/dL (8.5-10.1); Chloride 105 mmol/L (98-107); Creatinine, Serum 1.05 mg/dL (0.70-1.30); EST Glomerular Filtration Rate 73 mL/min (>60); Est Glom Filt Rate - Afr Amer 89 mL/min (>60); Globulin 3.4 g/dL (2.2-4.2); Glucose 121 mg/dL (74-106); Potassium 4.3 mmol/L (3.5-5.1); Protein, Total 6.6 g/dL (6.4-8.2); Sodium Level 140 mmol/L (136-145)
[2022-12-09 15:33] VITALS: BP 133/55; PULSE 82; RESP 24; O2SAT 95
--- NOTE | 2022-12-09 15:44 | CT_ITS ---
STUDY: CT ABDOMEN AND PELVIS WITH CONTRAST REASON FOR EXAM: Male, 72 years old. abdominal pain RADIATION DOSAGE (If Supplied By Facility): CTDIvol = ( 11.55 ) mGy, DLP = ( 371.99 ) mGycm TECHNIQUE: IV 100mL Isovue-370 was administered. Transaxial images were obtained from the dome of the diaphragm to the symphysis pubis in the portal venous phase. Multiplanar coronal and sagittal images were reformatted. Individualized Dose Optimization Techniques Were Used For This CT. COMPARISON: Prior study dated: 06/08/[address] 12/02/2022. FINDINGS: LOWER CHEST: Area of consolidation in the right lower lobe and right middle lobe noted which shows partial improvement from 12/02/2022. Small pleural effusion remains. No cardiomegaly or pericardial effusion. Coronary artery calcifications. Right-sided rib fractures are again noted with subcutaneous emphysema along the right chest wall. LIVER: The liver is normal in size, shape, and attenuation. No focal mass. GALLBLADDER AND BILIARY TREE: The gallbladder is distended. No gallstones. No gallbladder wall thickening or edema. No pericholecystic fluid. No intra- or extrahepatic biliary ductal dilation. PANCREAS: No focal cystic or solid mass. SPLEEN: Normal size without focal cystic or solid mass. ADRENAL GLANDS: No nodules. KIDNEYS AND URETERS: Normal renal size and position. No hydronephrosis or nephrolithiasis. Simple right renal cysts which requires no specific follow-up. PERITONEUM: No ascites or free air. No other fluid collection. BOWEL: The stomach is unremarkable. The small bowel is normal in caliber without obstruction. There is diffuse gas, fluid, and stool throughout the colon. Moderate colonic stool burden. Stool significantly distends the rectum, measuring 8.1 cm transverse. No significant associated wall thickening or adjacent inflammation. The appendix is not well seen. LYMPH NODES: No enlarged mesenteric or retroperitoneal lymph nodes. VESSELS: The aorta is normal in caliber with moderate atherosclerotic calcification. URINARY BLADDER: Mostly decompressed with no gross abnormality. REPRODUCTIVE ORGANS: No pelvic masses. ABDOMINAL WALL: No discrete abdominal or pelvic wall hernia. BONES: Mild degenerative changes of the lower thoracic spine. Intact pelvis with degenerative change of both hips. Right-sided rib fractures are again noted. CT/Abdomen/Pelvis W IV Cont ONLY IMPRESSION: Moderate colonic stool burden with stool distending the rectum. Small right-sided pleural effusion. Areas of residual consolidation in the right lower and right middle lobes, showing improvement from prior. Right-sided rib fractures again noted with subcutaneous emphysema of the right chest wall. Electronically Signed: Toney Rios MD at 17:01 EDT ,
[2022-12-09 15:47] VITALS: BMI 20.4
[2022-12-09] MEDS: 0.9% Normal Saline (1000mL) 1,000 ML 1000 ML IV (15:52)
[2022-12-09] MEDS: Ondansetron 4 MG/2 ML Vial IV ×2 (15:52→20:21)
--- NOTE | 2022-12-09 16:03 | ED.VIS.GI ---
HPI <KATI Matos - Last Filed: 12/09/22 17:30> HPI - GI History of Present Illness Chief Complaint: Abd Pain Narrative Narrative: Patient is a 72-year-old male with history of OCD, hypotension, who presents to the emergency department with abdominal pain, constipation. Patient fell off a ladder and was seen at [facility] had multiple rib fractures to the right side, pneumothorax. Patient did have a chest tube and that was removed Friday which was 2 days ago. Patient was then discharged 2 days ago, he has not had a bowel movement in 10 days. He is complaining of nausea, significant pain, he states he is not passing gas today however yesterday he did. Patient has done mag citrate, multiple laxatives as well as suppositories. [facility] <KATI Matos - Last Filed: 12/09/22 17:30> [facility] Medical History Hypotension Prostate CA Prostate CA Pulmonary embolism Stroke Stroke/cerebrovascular accident Subarachnoid hemorrhage Home Medications fluticasone propionate 50 mcg/actuation nasal spray,suspension 1 spray DAILY 08/13/14 [History Last Taken Unknown] lorazepam 0.5 mg tablet 0.5 mg PO DAILY PRN PRN Sleep 08/13/14 [History Last Taken Unknown] trazodone 100 mg tablet 50 - 100 mg PO DAILY 08/13/14 [History Last Taken Unknown] duloxetine 20 mg capsule,delayed release 1 tab PO DAILY 12/29/18 [History Last Taken Unknown] Colace 100 mg PO/SL DAILY 11/29/20 [History Last Taken Unknown] kenekmnifh-kqetkbqsimrvr-yjrlurle 50 mg-325 mg-40 mg tablet 1 tab PO PRN PRN Headache 11/29/20 [History Last Taken Unknown] fludrocortisone 0.1 mg tablet 0.1 mg PO DAILY 11/29/20 [History Last Taken Unknown] hydrocodone-acetaminophen 5-325mg 5mg-325mg 1 tab PO Q6H PRN PRN Pain 3 days #10 TABLETS 11/29/20 [Rx Last Taken Unknown] midodrine 2.5 mg tablet 2.5 mg PO DAILY 11/29/20 [History Last Taken Unknown] potassium chloride 20 mEq tablet,extended release(part/cryst) 20 meq PO DAILY 11/29/20 [History Last Taken Unknown] ketorolac 10 mg tablet 10 mg PO 4X/DAY PRN PRN pain 5 days #20 tabs 06/09/22 [Rx Last Taken Unknown] tamsulosin 0.4 mg capsule (Flomax) 0.4 mg PO DAILY #14 caps 06/09/22 [Rx Last Taken Unknown] cephalexin 500 mg capsule 500 mg PO Q6 #40 CAPSULES 11/30/22 [Rx Last Taken Unknown] Allergy/AdvReac Type Severity Reaction Status Date / Time Penicillins Allergy Other Verified 12/09/22 13:07 promethazine HCl Allergy Other Verified 12/09/22 13:07 [From Phenergan] risperidone [From Risperdal] Allergy Other Verified 12/09/22 13:07 venlafaxine HCl Allergy Other Verified 12/09/22 13:07 [From Effexor] perfume AdvReac Other Verified 12/09/22 13:07 Surgical History Hx of craniotomy Hx of prostatectomy Social History household members: spouse Smoking Status: Never smoker ROS <KATI Matos - Last Filed: 12/09/22 17:30> ROS ED ROS Narrative Constitutional: Negative for fever, chills, weight loss, weakness Eyes: Negative for vision loss, vision change, double vision ENT: Negative for any sore throat, ear pain, congestion Cardiovascular: Negative for any chest pain, tightness, palpitations Respiratory: Negative for any cough, sputum production, hemoptysis, dyspnea, dyspnea on exertion, orthopnea Gastrointestinal: Negative for any vomiting, diarrhea, blood in stool, blood in vomit. Positive for abdominal pain, constipation : Negative for any urinary frequency, dysuria, retention, blood in urine Muscle skeletal: Negative for any muscle joint pain, stiffness, myalgias, arthralgias, neck pain, back pain. Positive for right-sided rib pain, right-sided back pain Neurological: Negative for any headache, syncope, numbness or tingling, dizziness Skin: Negative for any rashes, lumps, itching, abrasions, lacerations Psychiatric: Negative for any depression, anxiety, stress, suicidal ideation, homicidal ideation Hematologic: Negative for any easy bruising, excessive bruising, easy bleeding Allergies: Negative for any eczema, hives, rash EXAM <KATI Matos - Last Filed: 12/09/22 17:30> Physical Exam Narrative Exam Narrative: Vital signs reviewed. HEET: Head normocephalic atraumatic, TMs clear bilaterally. Posterior pharynx is clear, moist mucous membranes. Nares clear bilaterally. Neck: Supple with no lymphadenopathy or tenderness. No signs of meningismus, negative jolt sign. Cardiac: Regular rate and rhythm no murmurs gallops or rubs, equal peripheral pulses bilaterally. Respiratory: Lungs clear to auscultation bilaterally. No chest tenderness. Abdomen: Soft, nondistended. No abdominal bruit or pulsatile masses. No hepatosplenomegaly. Positive for abdominal pain Extremities: No peripheral edema, no signs of gross trauma or deformity. Active full range of motion of all extremities. Neuro: Cranial nerves II through XII intact, no focal neurological deficits. Skin: Clean dry and intact with no rash, purpura, petechiae, vesicles or pustules. Backs/flank: No CVA tenderness, no midline spinal tenderness, no deformity. Psych: Normal mood and affect. No SI, HI or acute psychosis. Rectal: Rectal exam was completed with female nurse Reena. The stool was soft, with slightly dark in color such as dark brown. There is no gross bleeding. No hemorrhoids noted. There is no significant stool ball, the stool was not hard. Const Vital Signs: 12/09/22 13:08 12/09/22 15:33 Temperature 96.9 F L Temperature Source Temporal Pulse Rate 71 82 Respiratory Rate 16 24 H Blood Pressure 105/71 133/55 H Blood Pressure Mean 82 81 Pulse Ox 98 95 Oxygen Delivery Method Room Air Room Air <Dr. Charles Coon MD - Last Filed: 12/09/22 16:44> Physical Exam Const Vital Signs: 12/09/22 13:08 12/09/22 15:33 Temperature 96.9 F L Temperature Source Temporal Pulse Rate 71 82 Respiratory Rate 16 24 H Blood Pressure 105/71 133/55 H Blood Pressure Mean 82 81 Pulse Ox 98 95 Oxygen Delivery Method Room Air Room Air MDM <KATI Matos - Last Filed: 12/09/22 17:30> [facility] Lab Data Labs: Laboratory Results - last 24 hr 12/09/22 14:02 WBC 7.0 RBC 4.31 L Hgb 13.4 Hct 42.2 MCV 97.9 H MCH 31.1 MCHC 31.8 L RDW Std Deviation 48.1 H RDW Coeff of Joanie 13.2 Plt Count 301 MPV 9.9 Immature Gran % (Auto) 0.600 Neut % (Auto) 75.3 H Lymph % (Auto) 9.0 L Butler % (Auto) 9.7 Eos % (Auto) 4.1 Baso % (Auto) 1.3 H Absolute Neuts (auto) 5.3 Absolute Lymphs (auto) 0.63 L Nucleated RBC % 0 Sodium 140 Potassium 4.3 Chloride 105 Carbon Dioxide 30.0 Anion Gap 5 BUN 25 H Creatinine 1.05 Est GFR (MDRD) Af Amer 89 Est GFR (MDRD) Non-Af 73 BUN/Creatinine Ratio 23.8 H Glucose 121 H Calcium 9.5 Total Bilirubin 0.40 AST 52 H ALT 89 H Alkaline Phosphatase 111 Total Protein 6.6 Albumin 3.2 Globulin 3.4 Albumin/Globulin Ratio 0.9 Radiography Diagnostic Testing: Clinical Impression(s) from Imaging Studies Abdomen/Pelvis CT 12/09/22 15:44 IMPRESSION: Moderate colonic stool burden with stool distending the rectum. Small right-sided pleural effusion. Areas of residual consolidation in the right lower and right middle lobes, showing improvement from prior. Right-sided rib fractures again noted with subcutaneous emphysema of the right chest wall. Electronically Signed: Toney Rios MD at 17:01 EDT Reading Location ID and State: [facility] / CT Tel , Service support , Chest X-Ray 12/09/22 16:37 IMPRESSION: Right-sided chest tube no longer in place. No pneumothorax seen. Streaky right basilar opacities with small right pleural effusion are present. Electronically Signed: Toney Rios MD at 17:03 EDT , Treatment and Re-Evaluation :: Patient appears to be in mild distress secondary to abdominal pain, constipation. Patient has had trauma in the last week with multiple rib fractures on the right side as well as a pneumothorax. Patient was discharged from the hospital 2 days ago. Has not had a bowel movement in 10 days. Patient will receive a full abdominal work-up, patient CBC was unremarkable, patient's chemistries showed slight elevation in AST 52 ALT 89. Patient will receive a CT scan of the abdomen pelvis with IV contrast, as well as a chest x-ray to ensure full inflation of the lungs. Patient's urinalysis will be completed to ensure there is no UTI. Patient did receive a rectal exam upon my initial evaluation, there is not much in the rectal vault, there is no hard stool. Patient CBC shows no leukocytosis, hemoglobin 13.4. Patient's chemistries show normal renal function. Patient did receive a CT scan of the abdomen pelvis, this showed moderate colonic stool burden with stool distending the rectum. Significant constipation. No bowel obstruction. Patient's chest x-ray showed a right-sided chest tube no longer in place. No pneumothorax seen. We did speak with Dr. Gary regarding this abdominal CT scan. Patient will need xqrydl-[id number]-kvsnz enemas. Patient will need to be admitted to medicine. I spoke with the patient the patient's family, they are all in agreement. <Dr. Charles Coon MD - Last Filed: 12/09/22 16:44> [facility] Narrative Medical decision making narrative: I have personally performed a face to face assessment of the patient and have reviewed the CHAS Note. I performed a substantive portion of the visit including all aspects of the following. My townsend findings include: History is 72-year-old male fell from a ladder had rib fractures. Was seen here noted to have multiple rib fractures and pneumothorax. A chest tube placed and was transferred up to [facility]. He was in the hospital multiple days. He is now home he has been on pain medication complaining of constipation. Mild lower abdominal pain. No vomiting or diarrhea. No dysuria melena. No fever. Exam is [significant male vital signs stable afebrile. Pulse ox 95% room air no signs hypoxia. No distress. H EENT exam unremarkable atraumatic. Pupils round reactive light. C-spine nontender. Chest wall he has a bandage on his right lateral rib cage where the chest tube is at. He is still some mild tenderness to his right rib cage. No crepitus. Breath sounds are equal symmetrical. Heart regular rhythm rate about 80. Abdomen is soft nondistended normal bowel sounds no peritoneal signs. Mild suprapubic discomfort. No hernia. No mass. No distention. Moving all 4 extremities. He is laceration with some tissue avulsion of right lower leg which is old. Its been sewed. Currently is not infected. He has no hip pain. He can flex extend both knees. He can move his upper extremities. Neurologically he is awake and alert. Answering questions following commands.] Medical Decision Making [72-year-old status post fall with a right pneumothorax and chest tube. Most likely has constipation status post being on pain medication. CAT scan of his abdomen to be obtained due to the list of the recent trauma and constipation. Screening labs.] Other additions or changes: [None] Lab Data Attestation: I reviewed the patient's lab results. Lab results narrative: CBC shows a white count of 7. H&H of 13.4 and 42. Platelets 301. Electrolytes show a gap of 5. BUN and creatinine 25 and 1.05. Glucose 121. Liver enzymes show a AST of 52 and ALT of 89. Total bilirubin normal. Labs: Laboratory Results - last 24 hr 12/09/22 14:02 WBC 7.0 RBC 4.31 L Hgb 13.4 Hct 42.2 MCV 97.9 H MCH 31.1 MCHC 31.8 L RDW Std Deviation 48.1 H RDW Coeff of Joanie 13.2 Plt Count 301 MPV 9.9 Immature Gran % (Auto) 0.600 Neut % (Auto) 75.3 H Lymph % (Auto) 9.0 L Butler % (Auto) 9.7 Eos % (Auto) 4.1 Baso % (Auto) 1.3 H Absolute Neuts (auto) 5.3 Absolute Lymphs (auto) 0.63 L Nucleated RBC % 0 Sodium 140 Potassium 4.3 Chloride 105 Carbon Dioxide 30.0 Anion Gap 5 BUN 25 H Creatinine 1.05 Est GFR (MDRD) Af Amer 89 Est GFR (MDRD) Non-Af 73 BUN/Creatinine Ratio 23.8 H Glucose 121 H Calcium 9.5 Total Bilirubin 0.40 AST 52 H ALT 89 H Alkaline Phosphatase 111 Total Protein 6.6 Albumin 3.2 Globulin 3.4 Albumin/Globulin Ratio 0.9 Radiography Chest X-Ray - ED: 2 View and Read by ED Physician Diagnostic Testing: Clinical Impression(s) from Imaging Studies Abdomen/Pelvis CT 12/09/22 15:44 IMPRESSION: Moderate colonic stool burden with stool distending the rectum. Small right-sided pleural effusion. Areas of residual consolidation in the right lower and right middle lobes, showing improvement from prior. Right-sided rib fractures again noted with subcutaneous emphysema of the right chest wall. Electronically Signed: Toney Rios MD at 17:01 EDT , Chest X-Ray 12/09/22 16:37 IMPRESSION: Right-sided chest tube no longer in place. No pneumothorax seen. Streaky right basilar opacities with small right pleural effusion are present. Electronically Signed: Toney Rios MD at 17:03 EDT , Chest x-ray, 2 views shows atelectasis right lung base. No pneumothorax. Normal cardiac silhouette. He does have air-fluid levels in his abdomen seen in the lower part of the chest x-ray we have a CT of the abdomen pending. Discharge Plan Triage Chief Complaint: Abd Pain ED Midlevel Provider: Elbert Venegas ED Provider: Charles Coon Dx/Rx/DC Orders Clinical Impression: History of fracture of rib, Acute constipation, Abdominal pain Prescriptions: No Action lorazepam 0.5 MG tablet 0.5 mg PO DAILY PRN PRN (Reason: Sleep) trazodone 100 MG tablet 50 - 100 mg PO DAILY fluticasone propionate 1 SPRAY spray,suspension 1 spray NASAL DAILY duloxetine 20 MG capsule 1 tab PO DAILY Patient Comments: TAKE 1 CAPSULE BY MOUTH ONCE DAILY hdsjvjnsio-srjydfvjtgpxl-teme 50-325-40 mg tablet 1 tab PO PRN PRN (Reason: Headache) Patient Comments: TAKE 1 CAPSULE BY MOUTH ONCE DAILY NEEDED FOR SEVERE HEADACHE potassium chloride 20 mEq tablet,ER particles/crystals 20 meq PO DAILY midodrine 2.5 mg tablet 2.5 mg PO DAILY Patient Comments: TAKE 1 TABLET BY MOUTH TWICE DAILY fludrocortisone 0.1 mg tablet 0.1 mg PO DAILY Patient Comments: TAKE 1 TABLET BY MOUTH ONCE DAILY Colace 100 mg PO/SL DAILY hydrocodone-acetaminophen [hydrocodone-acetaminophen] 1 TABLET tablet 1 tab PO Q6H PRN PRN (Reason: Pain) 3 Days Qty: 10 0RF tamsulosin [Flomax] 0.4 mg capsule 0.4 mg PO DAILY Qty: 14 0RF ketorolac 10 mg tablet 10 mg PO 4X/DAY PRN PRN (Reason: pain) 5 Days Qty: 20 0RF Rx Instructions: while awake; do not exceed 4 doses per day cephalexin 500 mg capsule 500 mg PO Q6 Qty: 40 0RF Primary Care Provider: Max Cason Referrals: Max Cason MD [Primary Care Provider] - Disposition Disposition: Acute Care Hospital [facility]
--- NOTE | 2022-12-09 16:37 | RAD_ITS ---
INDICATION: hsitory of chest tube EXAMINATION/TECHNIQUE: X-RAY - XR Chest 2 Views COMPARISON: Prior study dated: 12/02/2022 FINDINGS: LINES/DEVICES: Cardiac leads overlie the chest. LUNGS: Low lung volumes. Streaky opacities are present at the right lung base. Previous right-sided chest tube no longer seen. There is likely a small right pleural effusion. No pneumothorax seen. Calcifications over the right apex are again noted. MEDIASTINUM AND CARDIOVASCULAR STRUCTURES: Cardiac silhouette not enlarged. Central airways and mediastinal contour are unremarkable. BONES AND SOFT TISSUES: Unremarkable. RAD/Chest PA and Lateral IMPRESSION: Right-sided chest tube no longer in place. No pneumothorax seen. Streaky right basilar opacities with small right pleural effusion are present. Electronically Signed: Toney Rios MD at 17:03 EDT ,
--- NOTE | 2022-12-09 17:21 | HP.PCM.HOS_ITS ---
[facility] Date of Admission: 12/09/22 Date of Service: 12/09/22 Chief Complaint: Constipation [facility] Narrative IIRNA CARBAJAL, is a 72 M with history of prostate cancer, CVA, mood disorder, hypotension and recent prolonged hospitalization at [facility] for a mechanical fall complicated by multiple rib fractures and a right-sided pneumothorax requiring chest tube placement (now removed) who presented to [facility] ED on 12/09/2022 with severe constipation. Patient seen at bedside in the ED, present. Patient laying in bed, does appear moderately uncomfortable due to abdominal pain and rib related pain. Was otherwise mentating appropriately and conversing normally. Patient's assisted with providing medical history. Patient recently had a fall on 11/30 and subsequently was found to have multiple rib fractures. Came to the [facility] ED on 12/02 and was found to have a right-sided pneumothorax requiring chest tube placement, was then transferred to [facility] for further management of his rib fractures and pneumothorax. He was discharged from [facility] 2 days ago. Did not have any bowel movements while there and has had worsening abdominal pain and distention especially over the last few days. She tried a dose of magnesium citrate for him today that allowed him to have 1 very small bowel movement but that was it. Patient states that he continues to have rib pain, that has been somewhat improved with the medications. He denies any fevers or chills. Denies any other acute concerns. Vitals in ED notable for mild hypertension, otherwise unremarkable. Labs notable for CBC and BMP unremarkable, AST 52, ALT 89, LFTs otherwise normal. Chest x-ray showed no pneumothorax, small right pleural effusion present. CT abdomen pelvis on admission showed moderate colonic stool burden with stool distending the rectum. [facility] Medical History Hypotension Prostate CA Prostate CA Pulmonary embolism Stroke Stroke/cerebrovascular accident Subarachnoid hemorrhage Home Medications fluticasone propionate 50 mcg/actuation nasal spray,suspension 1 spray DAILY PRN allergy symptoms 08/13/14 [History Last Taken Unknown] lorazepam 0.5 mg tablet 0.5 mg PO DAILY PRN PRN Sleep 08/13/14 [History Last Ta kayden Unknown] trazodone 100 mg tablet 50 - 100 mg PO DAILY PRN pain 08/13/14 [History Last Taken Unknown] duloxetine 20 mg capsule,delayed release 20 mg PO DAILY mood 12/29/18 [History Last Taken Unknown] Colace 100 mg PO/SL DAILY 11/29/20 [History Last Taken Unknown] vghafbafdo-bryysmhndczkd-ygeywbbg 50 mg-325 mg-40 mg tablet 1 tab PO PRN PRN Headache 11/29/20 [History Last Taken Unknown] fludrocortisone 0.1 mg tablet 0.1 mg PO DAILY hypotension 11/29/20 [History Last Taken Unknown] hydrocodone-acetaminophen 5-325mg 5mg-325mg 1 tab PO Q6H PRN PRN Pain 3 days #10 TABLETS 11/29/20 [Rx Last Taken Unknown] midodrine 2.5 mg tablet 2.5 mg PO DAILY BP 11/29/20 [History Last Taken Unknown] potassium chloride 20 mEq tablet,extended release(part/cryst) 20 meq PO DAILY supplement 11/29/20 [History Last Taken Unknown] ketorolac 10 mg tablet 10 mg PO 4X/DAY PRN PRN pain 5 days #20 tabs 06/09/22 [Rx Last Taken Unknown] tamsulosin 0.4 mg capsule (Flomax) 0.4 mg PO DAILY #14 caps 06/09/22 [Rx Last Taken Unknown] pregabalin 25 mg capsule 25 mg PO Q8H pain 12/09/22 [History Last Taken Unknown] Allergy/AdvReac Type Severity Reaction Status Date / Time Penicillins Allergy Other Verified 12/09/22 13:07 promethazine HCl Allergy Other Verified 12/09/22 13:07 [From Phenergan] risperidone [From Risperdal] Allergy Other Verified 12/09/22 13:07 venlafaxine HCl Allergy Other Verified 12/09/22 13:07 [From Effexor] perfume AdvReac Other Verified 12/09/22 13:07 Surgical History Hx of craniotomy Hx of prostatectomy Social History household members: spouse Smoking Status: Never smoker ROS Constitutional Constitutional: Reports fatigue; Denies chills or fever(s) Eyes Eyes: Denies change in vision Cardiovascular Cardiovascular: Denies chest pain Respiratory/Chest Respiratory/Chest: Denies cough or shortness of breath at rest Gastrointestinal Gastrointestinal: Reports abdominal pain and constipation; Denies diarrhea, hematochezia, melena, nausea or vomiting Musculoskeletal Musculoskeletal: Reports joint pain; Denies back pain Vital Signs Vital Signs Vital Signs: 12/09/22 13:08 12/09/22 15:33 Temperature 96.9 F L Temperature Source Temporal Pulse Rate 71 82 Respiratory Rate 16 24 H Blood Pressure 105/71 133/55 H Blood Pressure Mean 82 81 Pulse Ox 98 95 Oxygen Delivery Method Room Air Room Air Weight Weight: 64.7 kg Body Mass Index (BMI) 20.4 Physical Exam Const alert Constitutional Narrative: Alert, laying flat in bed, moderately uncomfortable appearing due to abdominal and rib related pain, conversing normally. General Appearance: cooperative and comfortable HEENT normocephalic, head/scalp atraumatic, hearing grossly normal bilaterally, nasal mucous membranes and turbinates normal and moist oral mucous membranes Eyes PERRL, EOMs intact bilaterally and conjunctivae normal Neck full ROM, no lymphadenopathy and supple Lymph Lymphatic: no lymphadenopathy noted Chest inspection of chest normal Resp normal respiratory effort, normal air movement, no use of accessory muscles and clear to auscultation bilaterally Cardio regular rate, regular rhythm, no murmurs and peripheral pulses 2+ throughout GI GI Narrative: Fairly hard and distended, mildly tender to palpation diffusely. Back/Spine normal ROM Extremity normal to inspection, full ROM and no pedal edema Skin no rashes or lesions noted Psych mental status grossly normal Results Lab / Micro Data 12/09/22 14:02 12/09/22 14:02 Labs: Laboratory Results - last 24 hr 12/09/22 14:02: WBC 7.0, RBC 4.31 L, Hgb 13.4, Hct 42.2, MCV 97.9 H, MCH 31.1, MCHC 31.8 L, RDW Std Deviation 48.1 H, RDW Coeff of Joanie 13.2, Plt Count 301, MPV 9.9, Immature Gran % (Auto) 0.600, Neut % (Auto) 75.3 H, Lymph % (Auto) 9.0 L, Gillespie % (Auto) 9.7, Eos % (Auto) 4.1, Baso % (Auto) 1.3 H, Absolute Neuts (auto) 5.3, Absolute Lymphs (auto) 0.63 L, Nucleated RBC % 0, Sodium 140, Potassium 4.3, Chloride 105, Carbon Dioxide 30.0, Anion Gap 5, BUN 25 H, Creatinine 1.05, Est GFR (MDRD) Af Amer 89, Est GFR (MDRD) Non-Af 73, BUN/Creatinine Ratio 23.8 H , Glucose 121 H, Calcium 9.5, Total Bilirubin 0.40, AST 52 H, ALT 89 H, Alkaline Phosphatase 111, Total Protein 6.6, Albumin 3.2, Globulin 3.4, Albumin/Globulin Ratio 0.9 Micro: Microbiology 12/09/22 15:50 Stool Stool Occult Blood (RUTH) - Final Occult Blood Positive Radiology Impression Abdomen/Pelvis CT 12/09/22 15:44 IMPRESSION: Moderate colonic stool burden with stool distending the rectum. Small right-sided pleural effusion. Areas of residual consolidation in the right lower and right middle lobes, showing improvement from prior. Right-sided rib fractures again noted with subcutaneous emphysema of the right chest wall. Electronically Signed: Toney Rios MD at 17:01 EDT , Chest X-Ray 12/09/22 16:37 IMPRESSION: Right-sided chest tube no longer in place. No pneumothorax seen. Streaky right basilar opacities with small right pleural effusion are present. Electronically Signed: Toney Rios MD at 17:03 EDT , Assessment & Plan Assessment/Plan (1) Constipation by delayed colonic transit: PLAN: Plan Patient is a 72-year-old male with history of prostate cancer, CVA, mood disorder, hypotension and recent prolonged hospitalization at [facility] for a mechanical fall complicated by multiple rib fractures and a right-sided pneumothorax requiring chest tube placement (now removed) who presented to [facility] ED on 12/09/2022 with severe constipation. 1. Severe constipation in setting of recent opiate use for acute pain CT abdomen pelvis on admission showed moderate colonic stool burden with stool distending the rectum. Patient has moderate abdominal distention and fairly hard abdomen to palpation on exam. Had reportedly not had a bowel movement for approximately 10 days. Patient's gave him a dose of magnesium citrate earlier today and patient had 1 very small bowel movement. ? Admit under observation status to [facility]. Dr. Reed with general surgery evaluated in the ED, recommended heavy regimen of enemas for now to hopefully stimulate bowel movements. Enema orders placed. Okay for regular diet, however recommended to patient that he limit p.o. intake if he has worsening nausea or abdominal distention. We will limit opiates for pain medication as able. 2. Multiple recent rib fractures with acute pain ? Required significant amount of opiates during the hospitalization for pain control. Current pain regimen of Winnie 5?325 mg every 6 hours as needed, p.o. Toradol 10 mg 4 times daily as needed, pregabalin 25 mg every 8 hours scheduled. We will continue this regimen for now, encourage patient to limit opiate use as able. 3. Recent right-sided pneumothorax in setting of rib fractures, resolved ? Required chest tube placement by Dr. Reed on 12/02 at [facility], was then transferred to [facility] (trauma center) for further management of chest tube and multiple rib fractures. Chest tube was removed prior to discharge there without issue. Chest x-ray in ED on admission shows no pneumothorax, small right pleural effusion present. Chronic medical conditions: ? Hypotension: Continue home fludrocortisone and midodrine. ? Mood disorder: Continue home duloxetine, trazodone at night as needed, Ativan at night as needed. ? BPH: Continue home Flomax. DVT prophylaxis: Lovenox CODE STATUS: Full code, verified Expected disposition: Home, 1 to 2 days Total clinical time spent by myself addressing the patient's medical issues, reviewing all the data, and collaborating with patient's care team: 55 minutes. Charges/Coding Visit Charges Inpatient E&M: 01974 Init Hosp L2
[2022-12-09 17:24] VITALS: BP 133/55; PULSE 82; RESP 24; TEMP 36.1; O2SAT 95
--- NOTE | 2022-12-09 17:30 | NURSING ---
MED SURG MOSTELLER CONSTIPATION, OBSTIPATION
[2022-12-09 19:03] VITALS: BP 148/70; PULSE 75; RESP 18; TEMP 37; O2SAT 96
[2022-12-09] MEDS: Acetaminophen 325 MG Tablet 650 MG PO (19:40)
[2022-12-09 20:18] VITALS: BP 137/73; PULSE 90; RESP 16; TEMP 36.8; O2SAT 96
[2022-12-09] MEDS: Ketorolac 10 MG Tablet PO (20:21)
[2022-12-09] MEDS: Fleet Enema 1 ML RC (20:28)
[2022-12-09] MEDS: traZODone 100 MG Tablet 50 MG PO (21:50)
[2022-12-09] MEDS: LORazepam 0.5 MG Tablet PO (21:50)
[2022-12-10 01:04] VITALS: BP 155/75; PULSE 75; RESP 16; TEMP 36.9; O2SAT 93
[2022-12-10] MEDS: MELATONIN 3 MG TABLET PO (01:11)
[2022-12-10 06:11] VITALS: BP 153/75; PULSE 82; RESP 16; TEMP 36.8; O2SAT 94
[2022-12-10] MEDS: Acetaminophen 325 MG Tablet 650 MG PO (06:27)
[2022-12-10] MEDS: Ketorolac 10 MG Tablet PO ×2 (06:27→12:31)
[2022-12-10 07:02] LABS: Hematocrit 35.3 % (40-54); Hemoglobin 11.3 g/dL (13.0-16.5); Mean Corpuscular Volume 96.7 fL (80-94); Mean Platelet Vol. 9.6 fl (6.2-12.0); Platelet Count 274 K/mm3 (150-450); RBC Distribution Width CV 13.1 % (11.6-14.6); Red Blood Count 3.65 M/mm3 (4.6-6.2)
[2022-12-10 07:28] LABS: ALB/GLOB Ratio 0.9 RATIO (0.9-2.4); AST(SGOT) 34 U/L (15-37); Alanine Aminotransfer ALT/SGPT 62 U/L (16-61); Albumin, Serum 2.5 g/dL (3.2-5.0); Alkaline Phosphatase 92 U/L (45-117); Anion Gap 2 (5-15); BUN 29 mg/dL (7-18); BUN/Creat Ratio 32.7 RATIO (10-20); Calcium,Total 8.5 mg/dL (8.5-10.1); Chloride 107 mmol/L (98-107); Creatinine, Serum 0.89 mg/dL (0.70-1.30); EST Glomerular Filtration Rate 89 mL/min (>60); Est Glom Filt Rate - Afr Amer 108 mL/min (>60); Estimated Creatinine Clearance 65.22 ml/min; Globulin 2.8 g/dL (2.2-4.2); Glucose 93 mg/dL (74-106); Potassium 3.9 mmol/L (3.5-5.1); Protein, Total 5.3 g/dL (6.4-8.2); Sodium Level 141 mmol/L (136-145)
[2022-12-10 08:36] VITALS: BP 154/79; PULSE 78; RESP 16; TEMP 37.1; O2SAT 92
[2022-12-10] MEDS: Tamsulosin HCl 0.4 MG Capsule PO (08:41)
[2022-12-10] MEDS: Fludrocortisone Acetate 0.1 MG Tablet PO (08:41)
[2022-12-10] MEDS: HYDROcodone Bitartrate/Apap 5/325 Tablet PO (08:45)
[2022-12-10] MEDS: Midodrine HCl 5 MG Tablet 2.5 MG PO (09:59)
[2022-12-10] MEDS: DULoxetine Hcl 20 MG Capsule PO (09:59)
[2022-12-10] MEDS: Enoxaparin 40 MG/0.4 ML Syringe SC (10:00)
--- NOTE | 2022-12-10 10:40 | CASEMGMT ---
Social Work SW performed chart review; ADs not on file. SW met with patient and introduced self and role as [facility] SW. Patient agreeable to speak with SW. SW inquired about completion of AD. Patient confirmed he has completed LW and HCPOA naming his as his HCPOA with no alternates. SW encouraged patient to bring a copy of those documents to be added to patient's file, patient voiced understanding. Emma DILL, JANIS
[2022-12-10 11:36] VITALS: BP 107/54; PULSE 72; RESP 18; TEMP 36.6; O2SAT 93
[2022-12-10] MEDS: SimETHICONE 80 MG Chewable Tablet PO (12:26)
--- NOTE | 2022-12-10 14:03 | DCINST_ITS ---
Discharge Instructions Diet Discharge Diet: No restrictions Activity Discharge Activity: Return to Normal Activity Weight Bearing Status: Full weight bearing Follow Up Care Test Results: Test results from this visit will be discussed in further detail at your follow- up appointment, if applicable. Discharge Plan Admission Admit Date/Time: 12/09/22 17:31 Primary Reason for Your Visit: constipation Attending Provider: Clive Perry Primary Care Provider: Max Cason Consulting Providers: Bashir Alvarez Additional Instructions / Restrictions: You may continue to take Colace if you want, you may not need it if you take Lactulose Discharge Orders/Prescriptions Prescriptions: New bacitracin zinc 500 unit/gram Ointment 1 applic topical DAILY Qty: 0 0RF Protocol: *Topical Application Instructions APPLICATION INSTRUCTIONS: old chest tube site lactulose 20 gram/30 mL solution 20 g PO TID Qty: 1200 0RF Rx Instructions: start out taking 30 ml twice a day, may increase to three times a day if needed Continued lorazepam 0.5 MG tablet 0.5 mg PO DAILY PRN PRN (Reason: Sleep) trazodone 100 MG tablet 50 - 100 mg PO DAILY PRN (Reason: pain) fluticasone propionate 1 SPRAY spray,suspension 1 spray NASAL DAILY PRN (Reason: allergy symptoms) duloxetine 20 MG capsule 20 mg PO DAILY Patient Comments: TAKE 1 CAPSULE BY MOUTH ONCE DAILY cvymokrxbq-yofyifmkigjic-imcb 50-325-40 mg tablet 1 tab PO PRN PRN (Reason: Headache) Patient Comments: TAKE 1 CAPSULE BY MOUTH ONCE DAILY NEEDED FOR SEVERE HEADACHE potassium chloride 20 mEq tablet,ER particles/crystals 20 meq PO DAILY midodrine 2.5 mg tablet 2.5 mg PO DAILY Patient Comments: TAKE 1 TABLET BY MOUTH TWICE DAILY fludrocortisone 0.1 mg tablet 0.1 mg PO DAILY Patient Comments: TAKE 1 TABLET BY MOUTH ONCE DAILY Colace 100 mg PO/SL DAILY hydrocodone-acetaminophen 1 TABLET tablet 1 tab PO Q6H PRN PRN (Reason: Pain) 3 Days Qty: 10 0RF tamsulosin [Flomax] 0.4 mg capsule 0.4 mg PO DAILY Qty: 14 0RF ketorolac 10 mg tablet 10 mg PO 4X/DAY PRN PRN (Reason: pain) 5 Days Qty: 20 0RF Rx Instructions: while awake; do not exceed 4 doses per day pregabalin 25 mg capsule 25 mg PO Q8H Referrals / Follow Up: Max Cason MD [Primary Care Provider] - See Referral Note (in 2 weeks) Wound,Center [Non-Staff] - See Referral Note (Next as scheduled) Disposition Disposition (needs filled in before D/C Order can be placed): Home, Self Care
--- NOTE | 2022-12-10 14:42 | DS.PCM_ITS ---
Providers Date of Admission: 12/09/22 Date of Discharge: 12/10/22 Primary Care Physician: Dr. Max Cason MD Consultations 12/10/22 14:02 Consult: Onc/Wound/digital media strategist Routine Comment: Reason for Consult:: leg and chest wounds, scalp wound Reason For Visit: CONSTIPATION Diagnosis Discharge Diagnosis (1) Constipation by delayed colonic transit: Status: Acute Code(s): K59.01 - Slow transit constipation Plan 1. Severe constipation secondary to immobility and recent prescription narcotic use #2 chronic pain secondary to multiple recent rib fractures #3 generalized debility secondary to recent fall with multiple rib fractures and right lower extremity wound Medications at Discharge Home Medications fluticasone propionate 50 mcg/actuation nasal spray,suspension 1 spray DAILY PRN allergy symptoms 08/13/14 lorazepam 0.5 mg tablet 0.5 mg PO DAILY PRN PRN Sleep 08/13/14 trazodone 100 mg tablet 50 - 100 mg PO DAILY PRN pain 08/13/14 duloxetine 20 mg capsule,delayed release 20 mg PO DAILY mood 12/29/18 Colace 100 mg PO/SL DAILY 11/29/20 bvecosqtnr-myswmijzksxff-yxabhnqi 50 mg-325 mg-40 mg tablet 1 tab PO PRN PRN Headache 11/29/20 fludrocortisone 0.1 mg tablet 0.1 mg PO DAILY hypotension 11/29/20 hydrocodone-acetaminophen 5-325mg 5mg-325mg 1 tab PO Q6H PRN PRN Pain 3 days #10 TABLETS 11/29/20 midodrine 2.5 mg tablet 2.5 mg PO DAILY BP 11/29/20 potassium chloride 20 mEq tablet,extended release(part/cryst) 20 meq PO DAILY supplement 11/29/20 ketorolac 10 mg tablet 10 mg PO 4X/DAY PRN PRN pain 5 days #20 tabs 06/09/22 tamsulosin 0.4 mg capsule (Flomax) 0.4 mg PO DAILY #14 caps 06/09/22 pregabalin 25 mg capsule 25 mg PO Q8H pain 12/09/22 bacitracin zinc 500 unit/gram topical ointment 1 applic topical DAILY #0 grams 12/10/22 lactulose 20 gram/30 mL oral solution 20 g (30 mL) PO TID #1,200 mL 12/10/22 Hospital Course Operations None Procedures None Summary of Care Provided Minutes Spent on Discharge: 30 Hospital Course: This 72-year-old white male was seen in the emergency room at [facility] with complaints of severe constipation, he recently had a fall and suffered multiple rib fractures and had been taking narcotics as an outpatient for pain control. Work-up in the emergency room included a CT of the abdomen and pelvis which showed moderate colonic stool burden with stool distending the rectum, white blood cell count was not elevated and hemoglobin was 13.4. The emergency room physician talked with general surgery and they recommended the patient be placed in the hospital for frequent enemas. Patient was admitted to [place] [id number] and with the administration of enemas had several bowel movements with good results. Patient was seen in consultation by the wound care nurse due to his right lower leg wound and examination of the wounds from his previous right- sided chest tube and recent scalp laceration. His scalp laceration appeared to be healing adequately and 2 munira were removed from the area. Appointments were made for the patient to follow-up with the wound care center regarding his right lower leg wound-there was no evidence of infection on any of the patient's wound sites. On 12/10/2022, patient was seen and examined: On examination he appeared in good health and spirits. Vital signs as documented. Skin warm and dry and without overt rashes, there were healing wounds to the patient's right lower leg and right lateral chest area, and occipital scalp area.. Neck without JVD, neck was supple, trachea midline, thyroid was normal. Lungs clear bilaterally, normal air movement was noted. Heart exam notable for regular rhythm, normal sounds and a bsence of murmurs, rubs or gallops. Abdomen unremarkable and without evidence of organomegaly, masses, or abdominal aortic enlargement. Bowel sounds are present, abdomen is not distended. Extremities nonedematous, no cyanosis was noted, no clubbing was noted. Patient had evidence of a recent skin tear to his right lower leg over the pierre area, there was no bleeding or discharge noted from the area, there is evidence of some superficial skin necrosis. Neuro: Cranial nerves II through XII are grossly intact, no focal motor deficits were noted, sensation to light touch and pinprick intact, motor exam 5/5 throughout. Psych: Patient is alert and oriented x3, he does not appear anxious or dep ressed, he does not appear agitated. On 12/10/2022, patient was felt to be stable for discharge home. Weight / BMI Weight Weight: 63.321 kg Body Mass Index (BMI) 20.0 ABG / Lab / Microbiology Data 12/10/22 06:10 12/10/22 06:10 Laboratory: Laboratory Results - last 24 hr 12/10/22 06:10: WBC 6.0, RBC 3.65 L, Hgb 11.3 L, Hct 35.3 L, MCV 96.7 H, MCH 31.0, MCHC 32.0, RDW Std Deviation 47.0 H, RDW Coeff of Joanie 13.1, Plt Count 274, MPV 9.6, Sodium 141, Potassium 3.9, Chloride 107, Carbon Dioxide 32.0, Anion Gap 2 L, BUN 29 H, Creatinine 0.89, Estim Creat Clear Calc 65.22, Est GFR (MDRD) Af Amer 108, Est GFR (MDRD) Non-Af 89, BUN/Creatinine Ratio 32.7 H, Glucose 93, Calcium 8.5, Total Bilirubin 0.50, AST 34, ALT 62 H, Alkaline Phosphatase 92, Total Protein 5.3 L, Albumin 2.5 L, Globulin 2.8, Albumin/Globulin Ratio 0.9 Microbiology: Microbiology 12/09/22 15:50 Stool Stool Occult Blood (RUTH) - Final Occult Blood Positive Radiography Diagnostic Testing: Radiology Impression Abdomen/Pelvis CT 12/09/22 15:44 IMPRESSION: Moderate colonic stool burden with stool distending the rectum. Small right-sided pleural effusion. Areas of residual consolidation in the right lower and right middle lobes, showing improvement from prior. Right-sided rib fractures again noted with subcutaneous emphysema of the right chest wall. Electronically Signed: Toney Rios MD at 17:01 EDT , Chest X-Ray 12/09/22 16:37 IMPRESSION: Right-sided chest tube no longer in place. No pneumothorax seen. Streaky right basilar opacities with small right pleural effusion are present. Electronically Signed: Toney Rios MD at 17:03 EDT , D/C Instructions Discharge Diet: No restrictions Weight Bearing Status: Full weight bearing Meaningful Use Info Meaningful Use Diagnoses (Choose all that apply): None applicable Discharge Plan Admission Admit Date/Time: 12/09/22 17:31 Primary Reason for Your Visit: constipation Attending Provider: Clive Perry Primary Care Provider: Max Cason Consulting Providers: Bashir Alvarez Instructions Additional Instructions / Restrictions: You may continue to take Colace if you want, you may not need it if you take Lactulose Discharge Orders/Prescriptions Prescriptions: New bacitracin zinc 500 unit/gram Ointment 1 applic topical DAILY Qty: 0 0RF Protocol: *Topical Application Instructions APPLICATION INSTRUCTIONS: old chest tube site lactulose 20 gram/30 mL solution 20 g PO TID Qty: 1200 0RF Rx Instructions: start out taking 30 ml twice a day, may increase to three times a day if needed Continued lorazepam 0.5 MG tablet 0.5 mg PO DAILY PRN PRN (Reason: Sleep) trazodone 100 MG tablet 50 - 100 mg PO DAILY PRN (Reason: pain) fluticasone propionate 1 SPRAY spray,suspension 1 spray NASAL DAILY PRN (Reason: allergy symptoms) duloxetine 20 MG capsule 20 mg PO DAILY Patient Comments: TAKE 1 CAPSULE BY MOUTH ONCE DAILY gdfdgqiwyz-alwdwgclnqcgf-fhcy 50-325-40 mg tablet 1 tab PO PRN PRN (Reason: Headache) Patient Comments: TAKE 1 CAPSULE BY MOUTH ONCE DAILY NEEDED FOR SEVERE HEADACHE potassium chloride 20 mEq tablet,ER particles/crystals 20 meq PO DAILY midodrine 2.5 mg tablet 2.5 mg PO DAILY Patient Comments: TAKE 1 TABLET BY MOUTH TWICE DAILY fludrocortisone 0.1 mg tablet 0.1 mg PO DAILY Patient Comments: TAKE 1 TABLET BY MOUTH ONCE DAILY Colace 100 mg PO/SL DAILY hydrocodone-acetaminophen 1 TABLET tablet 1 tab PO Q6H PRN PRN (Reason: Pain) 3 Days Qty: 10 0RF tamsulosin [Flomax] 0.4 mg capsule 0.4 mg PO DAILY Qty: 14 0RF ketorolac 10 mg tablet 10 mg PO 4X/DAY PRN PRN (Reason: pain) 5 Days Qty: 20 0RF Rx Instructions: while awake; do not exceed 4 doses per day pregabalin 25 mg capsule 25 mg PO Q8H Referrals / Follow Up: Max Cason MD [Primary Care Provider] - See Referral Note (in 2 weeks) Wound,Center [Non-Staff] - See Referral Note (Next as scheduled) Disposition Disposition (needs filled in before D/C Order can be placed): Home, Self Care Charges/Coding Visit Charges Inpatient E&M: 09880 Subs Hosp L1
--- NOTE | 2022-12-10 14:42 | WOUNDNOTE ---
Two munira removed from the right head. small scab noted. no redness or drainage noted. pt tolerated well. present.
--- NOTE | 2022-12-10 14:55 | CASEMGMT ---
MOHINI JOSEPH Assessment: Face to Face with pt for initial transition planning/care coordination assessment. MOHINI JOSEPH introduced self and role at [facility], pt voices understanding and consents to assessment. Pt is A&O x4 and answers all questions appropriately at this time. Patient is sitting up on edge of bed and his , Lexii, is also at the bedside. Patient's provides some of the below information. Care providers, pharmacy, and demographics verified/updated. Admitting Dx: Consitpation PCP: Kamla Specialists: Etienne mcdonald Pledger (Neurologist), Raimundo (Therapist at [facility]) Preferred Pharmacy: [facility] ([place]) Insurance: [employer] [facility] Prescription Benefit: yes LNOK: Lexii Chin () Living Will/HCPOA: Yes and Yes - is listed as HCPOA Living Arrangements: Pt lives with his in a ranch-style home w/FFSU and a basement where Patient uses treadmill at times. 1 step w/ railing to enter home and 12 steps w/ railing to basement. Patient states he ambulates these stairs fine. Patient reports that prior to this admission, he was independent in all ADLs and he and his share IADLs (he cleans, she cooks, and they both go to get groceries). Transportation: Pt states he is able to drive self if needed, but does so seldom. drives most often. DME: Shower chair, cane (states has just been using this since his recent fall and previously only if he was going to be in a crowd), grab bars in shower. Patient was offered information about medical alert systems but he declines it at this time. HHC/SNF: Denies previous SNF. Reports previous home PT back in 2011 (cannot recall who it was through). Denies need for SNF/HHC at this time. Pt states no concerns with going home at time of dc. Patient does have an order for discharge at this time and was informed of this. Patient denies needs at this time. Patient had no further questions/concerns at this time. Pt Goal: Home Plan: Patient to discharge home with family support and follow-up plans in place. Patient's reports that he has a follow-up appointment at the [facility] on December 19, 2022 for skin tear on his right pierre. Ashleigh DURAND, RN, CM
--- NOTE | 2022-12-10 15:09 | PHA.DC_ITS ---
Pharmacy [facility] Service has performed discharge medication reconciliation and counseling for this patient. The patient's discharge medication list was reviewed for discrepancies and discrepancies were resolved. The patient was counseled on the following discharge medications and changes in medications for homegoing were reviewed. The Reason for Use, instructions for use, and potential side effects were reviewed for all new medications. The patient's questions regarding all of their medications were answered. 1. Lactulose 20g PO BID, may increase to TID if needed 2. Bacitracin ointment to old chest port daily The patient and patient's were able to verbally demonstrate an understanding of their discharge medications. Medications at Discharge Home Medications fluticasone propionate 50 mcg/actuation nasal spray,suspension 1 spray DAILY PRN allergy symptoms 08/13/14 lorazepam 0.5 mg tablet 0.5 mg PO DAILY PRN PRN Sleep 08/13/14 trazodone 100 mg tablet 50 - 100 mg PO DAILY PRN pain 08/13/14 duloxetine 20 mg capsule,delayed release 20 mg PO DAILY mood 12/29/18 Colace 100 mg PO/SL DAILY 11/29/20 yrmhdekszg-xhxthwkhdnjni-epxvgusv 50 mg-325 mg-40 mg tablet 1 tab PO PRN PRN Headache 11/29/20 fludrocortisone 0.1 mg tablet 0.1 mg PO DAILY hypotension 11/29/20 hydrocodone-acetaminophen 5-325mg 5mg-325mg 1 tab PO Q6H PRN PRN Pain 3 days #10 TABLETS 11/29/20 midodrine 2.5 mg tablet 2.5 mg PO DAILY BP 11/29/20 potassium chloride 20 mEq tablet,extended release(part/cryst) 20 meq PO DAILY supplement 11/29/20 ketorolac 10 mg tablet 10 mg PO 4X/DAY PRN PRN pain 5 days #20 tabs 06/09/22 tamsulosin 0.4 mg capsule (Flomax) 0.4 mg PO DAILY #14 caps 06/09/22 pregabalin 25 mg capsule 25 mg PO Q8H pain 12/09/22 bacitracin zinc 500 unit/gram topical ointment 1 applic topical DAILY #0 grams 12/10/22 lactulose 20 gram/30 mL oral solution 20 g (30 mL) PO TID #1,200 mL 12/10/22
[2022-12-10 15:16] VITALS: BP 120/65; PULSE 75; RESP 16; TEMP 36.6; O2SAT 94
--- NOTE | 2022-12-10 15:26 | WOUNDNOTE ---
wound photo: right lateral chest
--- NOTE | 2022-12-10 15:27 | WOUNDNOTE ---
wound photo: right pierre
== END 2022-12-10 15:15 | disposition home or self-care (01) | DRG 392 ==
LOC: ED 17:30 → MS3 12-10 07:02
PROVIDERS: Admitting Provider Hospitalist; Emergency Provider Emergency Medicine; PCP Family Medicine; Visit Provider Internal Medicine
DX: K59.01 Slow transit constipation (principal); F39 Unspecified mood [affective] disorder; I95.89 Other hypotension; S22.49XD Multiple fractures of ribs, unspecified side, subsequent encounter for fracture with routine healing; R53.81 Other malaise; Z85.46 Personal history of malignant neoplasm of prostate; Z86.73 Personal history of transient ischemic attack (TIA), and cerebral infarction without residual deficits; Z86.711 Personal history of pulmonary embolism; W11.XXXD Fall on and from ladder, subsequent encounter; N40.0 Benign prostatic hyperplasia without lower urinary tract symptoms; Z79.899 Other long term (current) drug therapy
CPT/HCPCS: 36415; 71046; 74177; 80053; 82274; 85025; 85027; 94668; 96361; 96372; 96374; 96376; 99221; 99284; J7030; A4216; G0378; J2405

== ENCOUNTER 2023-01-02 11:00 | Outpatient (RCR) | payer MEDICARE, SELFPAY ==
[2022-12-19 09:23] VITALS: BP 145/62; PULSE 76; RESP 18; TEMP 36.1; BMI 19.9
--- NOTE | 2022-12-19 10:03 | HP.PCM_ITS ---
History of Present Illness Date of Service: 12/19/22 Chief Complaint: Right lower extremity wound History of Wound: Patient is a 72-year-old male who presents to the wound care center for nonhealing left lower extremity wound. He has PMHx of stroke, prostate cancer, PE, subarachnoid hemorrhage. Patient states that 3 weeks ago he was standing on a step ladder painting the outside of the house and lost balance falling onto some gravel rocks. He presented to the [facility] ED on 11/30/2022 with laceration to scalp and right lower extremity. Lacerations repaired with 2 munira placed into the head laceration and eleven 4-0 nylon simple interrupted sutures placed into the right lower extremity with central defect secondary to loss of skin coverage. During fall he also suffered for rib fractures and ultimately developed pneumothorax and was admitted to the [facility]. He did have chest tube placed which has been pulled and healing well. They state they have been keeping the wound clean and dry to the right lower extremity however wound has failed to progress in healing with eschar noted to the wound bed. He denies being diabetic. Denies constitutional symptoms. Denies further complaints. [facility] Medical History Hypotension Prostate CA Prostate CA Pulmonary embolism Stroke Stroke/cerebrovascular accident Subarachnoid hemorrhage Home Medications fluticasone propionate 50 mcg/actuation nasal spray,suspension 1 spray DAILY PRN allergy symptoms 08/13/14 [History Last Taken Unknown] lorazepam 0.5 mg tablet 0.5 mg PO DAILY PRN PRN Sleep 08/13/14 [History Last Taken Unknown] trazodone 100 mg tablet 50 - 100 mg PO DAILY PRN pain 08/13/14 [History Last Taken Unknown] duloxetine 20 mg capsule,delayed release 20 mg PO DAILY mood 12/29/18 [History Last Taken Unknown] Colace 100 mg PO/SL DAILY 11/29/20 [History Last Taken Unknown] rhpfigcutr-eebynofsiackh-sudovhen 50 mg-325 mg-40 mg tablet 1 tab PO PRN PRN Headache 11/29/20 [History Last Taken Unknown] fludrocortisone 0.1 mg tablet 0.1 mg PO DAILY hypotension 11/29/20 [History Last Taken Unknown] hydrocodone-acetaminophen 5-325mg 5mg-325mg 1 tab PO Q6H PRN PRN Pain 3 days #10 TABLETS 11/29/20 [Rx Last Taken Unknown] midodrine 2.5 mg tablet 2.5 mg PO DAILY BP 11/29/20 [History Last Taken Unknown] potassium chloride 20 mEq tablet,extended release(part/cryst) 20 meq PO DAILY supplement 11/29/20 [History Last Taken Unknown] ketorolac 10 mg tablet 10 mg PO 4X/DAY PRN PRN pain 5 days #20 tabs 06/09/22 [Rx Last Taken Unknown] tamsulosin 0.4 mg capsule (Flomax) 0.4 mg PO DAILY #14 caps 06/09/22 [Rx Last Taken Unknown] pregabalin 25 mg capsule 25 mg PO Q8H pain 12/09/22 [History Last Taken Unknown] bacitracin zinc 500 unit/gram topical ointment 1 applic topical DAILY #0 grams 12/10/22 [Rx Last Taken Unknown] lactulose 20 gram/30 mL oral solution 20 g (30 mL) PO TID #1,200 mL 12/10/22 [Rx Last Taken Unknown] Allergy/AdvReac Type Severity Reaction Status Date / Time Penicillins Allergy Other Verified 12/09/22 13:07 promethazine HCl Allergy Other Verified 12/09/22 13:07 [From Phenergan] risperidone [From Risperdal] Allergy Other Verified 12/09/22 13:07 venlafaxine HCl Allergy Other Verified 12/09/22 13:07 [From Effexor] perfume AdvReac Other Verified 12/09/22 13:07 Surgical History Hx of craniotomy Hx of prostatectomy Social History household members: spouse Smoking Status: Never smoker ROS Constitutional Constitutional: Denies anorexia, chills, fatigue or fever(s) Eyes Eyes: Denies blurry vision, change in vision or double vision ENT HEENT: Denies dysphagia, nasal congestion, nasal discharge or sore throat Cardiovascular Cardiovascular: Denies chest pain, claudication or palpitations Respiratory/Chest Respiratory/Chest: Denies cough, shortness of breath at rest or wheezing Gastrointestinal Gastrointestinal: Denies abdominal pain, constipation, diarrhea, nausea or vomiting Genitourinary Genitourinary: Denies dysuria or hematuria Musculoskeletal Musculoskeletal: Denies joint pain, joint stiffness or joint swelling Integumentary Integumentary: Denies lesions, pruritus or rash Neurologic Neurologic: Denies dizziness, numbness or seizures Endocrine Endocrinology: Denies cold intolerance or heat intolerance Vital Signs Vital Signs Vital Signs: 12/19/22 09:23 Temperature 97.0 F L Temperature Source Temporal Pulse Rate 76 Respiratory Rate 18 Blood Pressure 145/62 H Blood Pressure Mean 89 Blood Pressure Source Monitor Blood Pressure Position Semi-Fowlers Blood Pressure Location Right Arm Weight Weight: 63.049 kg Body Mass Index (BMI) 19.9 Physical Exam Const alert, oriented x3 and no apparent distress General Appearance: cooperative HEENT normocephalic Eyes General Eye: normal appearance of both eyes Neck General: normal visual inspection Lymph Lymphatic: no lymphadenopathy noted and no lymphedema noted Chest Chest Narrative: Healing wound secondary to chest tube placement right side. No signs of infection. Skin friable with gauze dressing covering. Resp normal respiratory effort Cardio regular rate and regular rhythm Extremity normal capillary refill, no joint enlargement, no calf tenderness and no pedal edema Extremity Narrative: Vascular: DP and PT pulses palpable bilateral. Capillary fill time less than 5 seconds to the digits bilateral. No pedal edema, no lymphadenopathy, no lymphangitic streaking. Negative Homans' sign, negative Tijerina sign to right lower extremity. Dermatological: Traumatic ulceration noted to the right anterior and lateral lower extremity with fibrogranular tissue and eschar in the wound bed. No erythema, no purulent drainage, no malodor, no palpable fluctuance/bogginess noted, no visible abscess formation, no lymphangitic streaking, no other signs of infection. Musculoskeletal: Muscle strength 5 of 5 age-appropriate. Decreased range of motion of the ankle joint in dorsiflexion with the knee extended without pain or crepitus bilateral. Enlarged palpable styloid process fifth metatarsal base left foot. No pain to palpation to bones of foot or ankle bilateral. Skin no rashes or lesions noted, skin turgor normal and no jaundice Neuro oriented x3 and moves all extremities Debridement Note Debridement Note Wound debrided: Right lower extremity x2 Laterality: Right Wound Grade/Stage: Mendez stage I Type of Debridement: Excisional debridement Anesthesia Used: 5% Lidocaine Gel Depth: Down to and including healthy tissue and in the subcutaneous layer Percentage of wound debrided: 100 Instrument Used: 5mm curette Tissue Removed: Fibrous, devitalized subcutaneous, biofilm, slough Severity: Fat Layer Exposed Amount of bleeding with debridement: Mild Bleeding Controlled with: Compression and gauze Patient tolerated procedure: Patient tolerated procedure well Post-Debridement Measurements and Additional Note: Post-Debridement Measurements/Treatment - Nurse 1 - General Ulcer Assessment Start: 12/19/22 09:22 Freq: Status: Active Protocol: SIRISHA Activity Type Activity Date Activity User E-sign Co-sign Detail Recorded Client Recorded Date Recorded By Document 12/19/22 09:23 [email or web address] 12/19/22 09:35 12/19/22 09:23 - Today's Visit Information Type of service Initial Visit Arrival Mode Ambulatory,Cane Accompanied by Patient Identification Verified (Name & Yes ) Patient Requires Transmission-Based No Precautions Height and Weight Height 5 ft 10 in Weight 63.049 kg Weight in Pounds 139.0 lbs Body Mass Index (BMI) 19.9 BMI Classification Normal BSA - Naun 1.79 Vital Signs Temperature (97.8 F-99.1 F) 97.0 F L Temperature Source Temporal Pulse Rate (60-100) 76 Pulse Location Monitor Respiratory Rate (12-18) 18 Respiratory rate source Observation Blood Pressure (90/60-120/80) 145/62 H Blood Pressure Mean 89 Source Monitor Position Semi-Fowlers Blood Pressure Location Right Arm History Since Last Visit- (Skip if this is Patient's initial visit) Have you changed medications since your No last visit? Any new allergies or adverse reactions No Had a fall/change in ADL's that may No increase risk of falls Signs or symptoms of abuse and/or No neglect since last visit Have you been in the hospital since your No last visit? Has dressing in place as prescribed Yes Has compression in place as prescribed Yes Has offloadiing in place as prescribed N/A Experienced any changes in pain level or No management Left Footwear Regular Shoe Right Footwear Regular Shoe Pain Scale: 0-10 Numeric Is Patient Pain Free? Yes - Nurse 1 - General Ulcer Measurement Start: 12/19/22 09:22 Freq: Status: Active Protocol: Activity Type Activity Date Activity User E-sign Co-sign Detail Recorded Client Recorded Date Recorded By Document 12/19/22 09:23 SADIE Frameriop 12/19/22 09:35 JF 12/19/22 09:23 Wound Center Nurse 1 1-right leg -Combined with other wound No -Current Size (cm) - Length 6.4 -Current Size (cm) - Width 4.5 -Current Size (cm) - Depth 0.2 -Total Square Cm 28.80 -Photo Taken Yes -Epithelialization Small 1-33% -Tunneling No -Undermining/Tunneling No -Circular Undermining No -Exudate Amt Medium -Exudate Type Serosanguineous -Wound Margin Flat & Intact -Granulation Amt Medium (34-66%) -Granulation Quality Red -Slough/Fibrin Yes -Necrosis Amt Small (1-33%) -Necrotic Tissue Type Adherent Slough -Structure Exposed N/A -Texture (Tameka-wound Skin Appearance) Assessed, Localized Edema -Moisture (Tameka-wound Skin Appearance) Assessed,Dry/ Scaly -Color (Tameka-wound Skin Appearance) Assessed -Temperature (Tameka-wound Skin No Abnormality Appearance) (Pt Warm) -Tenderness on Palpation (Tameka-wound No Skin Appearance) -Ulcer Cleansing Wound Cleanser -Foul Odor after Cleansing No -Anesthetic Used 5% Lidocaine Gel Lower Limb Edema Present Yes Right Calf (cm) 37.0 Right Ankle (cm) 24.0 Assessment/Plan Assessment/Plan (1) Leg wound, right: CODE(S): S81.801A - Unspecified open wound, right lower leg, initial encounter (2) Non-pressure chronic ulcer of right calf with fat layer exposed: CODE(S): L97.212 - Non-pressure chronic ulcer of right calf with fat layer exposed PLAN: Plan Patient seen and evaluated I reviewed prior documentation from ED visit 11/30/2022 and history of hospital stay following. Ulceration to the right lower extremity was debrided as noted in the clinical panel above. Proximal right lower extremity wound measures 9 cm x 8 cm x 0.3 cm in distal right lower extremity wound measures 0.5 cm x 0.5 cm x 0.1 cm. Monica applied to the wound bed and dressed with dry sterile dressing. They are instructed to change dressing daily. We will seek approval for advanced skin care product, EpiFix to apply at next visit. Discussed adequate protein intake for continued wound healing. He is to elevate lower extremity at times of rest to aid in any edema control. Discussed how this will improve wound healing. He is continuing daily exercise of walking a mile despite medical problems. States overall he feels good and would like to continue this. He would like to get back to running 5 miles a day which he was doing regularly prior to his fall. Discussed good supportive shoe gear today. Patient does wear ASIC shoes and are noted to be supportive. The following work up and care recommendations were made: Dressing: Monica and dry sterile dressing. Change dressing daily. Wash: Soap and water Tissue growth optimization: Monica Offload: Ensure nothing bumps anterior right lower extremity. Keep dressing intact providing protection. Vascular: Palpable DP and PT pulses with adequate capillary fill time to the digits. Do not feel vascular status is impacting wound healing. Edema: There is some mild localized edema about the wound margins. Discussed elevation of lower extremities to aid in wound healing. Infection: No signs of infection. Pain: May take [id number] Tylenol for discomfort. Host factors: No current factors impacting healing. Patient otherwise healthy. I answered all the patient's questions. To return to the wound healing center in 1 week or call sooner if the patient has any questions or concerns.
[2022-12-26 10:15] VITALS: BP 135/70; PULSE 70; RESP 18; TEMP 36.4; BMI 19.9
--- NOTE | 2022-12-26 22:48 | PN.PCM_ITS ---
History of Present Illness Date of Service: 12/26/22 Chief Complaint: Right lower extremity wound History of Wound: Patient is a 72-year-old male who presents to the wound care center for nonhealing left lower extremity wound. He has PMHx of stroke, prostate cancer, PE, subarachnoid hemorrhage. Patient states that 3 weeks ago he was standing on a step ladder painting the outside of the house and lost balance falling onto some gravel rocks. He presented to the [facility] ED on 11/30/2022 with laceration to scalp and right lower extremity. Lacerations repaired with 2 munira placed into the head laceration and eleven 4-0 nylon simple interrupted sutures placed into the right lower extremity with central defect secondary to loss of skin coverage. During fall he also suffered for rib fractures and ultimately developed pneumothorax and was admitted to the [facility]. He did have chest tube placed which has been pulled and healing well. They state they have been keeping the wound clean and dry to the right lower extremity however wound has failed to progress in healing with eschar noted to the wound bed. He denies being diabetic. Denies constitutional symptoms. Denies further complaints. Subjective Subjective This is a 72-year-old male who presents to the wound care center today for follow-up of right lower extremity ulceration secondary to fall. He is in the dressing daily. He remains active with daily walking. Denies any constitutional symptoms. Denies further complaints. Objective Data Objective Data Vital Signs: Vital Signs Temp Pulse Resp BP O2 Del Method 97.5 F L 70 18 135/70 H Room Air 12/26/22 10:15 12/26/22 10:15 12/26/22 10:15 12/26/22 10:15 12/26/22 10:15 Oxygen Delivery Method Room Air Weight: 63.049 kg Body Mass Index (BMI) 19.9 Physical Exam Const alert, oriented x3 and no apparent distress General Appearance: cooperative HEENT normocephalic Eyes General Eye: normal appearance of both eyes Neck General: normal visual inspection Lymph Lymphatic: no lymphadenopathy noted and no lymphedema noted Chest Chest Narrative: Healing wound secondary to chest tube placement right side. No signs of infection. Skin friable with gauze dressing covering. Resp normal respiratory effort Cardio regular rate and regular rhythm Extremity normal capillary refill, no joint enlargement, no calf tenderness and no pedal edema Extremity Narrative: Vascular: DP and PT pulses palpable bilateral. Capillary fill time less than 5 seconds to the digits bilateral. No pedal edema, no lymphadenopathy, no lymphangitic streaking. Negative Homans' sign, negative Tijerina sign to right lo wer extremity. Dermatological: Traumatic ulceration noted to the right anterior and lateral lower extremity with fibrogranular tissue and eschar in the wound bed. No erythema, no purulent drainage, no malodor, no palpable fluctuance/bogginess noted, no visible abscess formation, no lymphangitic streaking, no other signs of infection. Musculoskeletal: Muscle strength 5 of 5 age-appropriate. Decreased range of motion of the ankle joint in dorsiflexion with the knee extended without pain or crepitus bilateral. Enlarged palpable styloid process fifth metatarsal base left foot. No pain to palpation to bones of foot or ankle bilateral. Skin no rashes or lesions noted, skin turgor normal and no jaundice Neuro oriented x3 and moves all extremities Debridement Note Debridement Note Wound debrided: Right lower extremity Laterality: Right Wound Grade/Stage: Mendez stage II Type of Debridement: Excisional debridement Anesthesia Used: 5% Lidocaine Gel Depth: Down to and including healthy tissue and in the subcutaneous layer Percentage of wound debrided: 100 Instrument Used: 5mm curette Tissue Removed: Fibrous, devitalized subcutaneous, biofilm, slough Severity: Fat Layer Exposed Amount of bleeding with debridement: Mild Bleeding Controlled with: Compression and gauze Patient tolerated procedure: Patient tolerated procedure well Post-Debridement Measurements and Additional Note: Post-Debridement Measurements/Treatment - Nurse 1 - General Ulcer Assessment Start: 12/19/22 09:22 Freq: Status: Active Protocol: SIRISHA Activity Type Activity Date Activity User E-sign Co-sign Detail Recorded Client Recorded Date Recorded By Document 12/19/22 09:23 Desktop 12/19/22 09:35 Document 12/26/22 10:15 Desktop 12/26/22 10:26 KW 12/19/22 12/26/22 09:23 10:15 - Today's Visit Information Type of service Initial Visit Follow-up Visit (Physician/COSMETOLOGIST ) Arrival Mode Ambulatory,Cane Ambulatory Accompanied by Patient Identification Verified (Name & Yes Yes ) Patient Requires Transmission-Based No Precautions Height and Weight Height 5 ft 10 in Weight 63.049 kg Weight in Pounds 139.0 lbs Body Mass Index (BMI) 19.9 19.9 BMI Classification Normal Normal BSA - Naun 1.79 Vital Signs Temperature (97.8 F-99.1 F) 97.0 F L 97.5 F L Temperature Source Temporal Temporal Pulse Rate (60-100) 76 70 Pulse Location Monitor Monitor Respiratory Rate (12-18) 18 18 Respiratory rate source Observation Observation Oxygen Delivery Method Room Air Blood Pressure (90/60-120/80) 145/62 H 135/70 H Blood Pressure Mean (mm Hg) 89 91 Source Monitor Monitor Position Semi-Fowlers Semi-Fowlers Blood Pressure Location Right Arm Left Arm History Since Last Visit- (Skip if this is Patient's initial visit) Have you changed medications since your No No last visit? Any new allergies or adverse reactions No No Had a fall/change in ADL's that may No No increase risk of falls Signs or symptoms of abuse and/or No No neglect since last visit Have you been in the hospital since your No No last visit? Has dressing in place as prescribed Yes Yes Has compression in place as prescribed Yes Yes Has offloadiing in place as prescribed N/A No Experienced any changes in pain level or No No management Left Footwear Regular Shoe Regular Shoe Right Footwear Regular Shoe Regular Shoe Pain Scale: 0-10 Numeric Is Patient Pain Free? Yes Yes WC - Nurse 1 - General Ulcer Measurement Start: 12/19/22 09:22 Freq: Status: Active Protocol: Activity Type Activity Date Activity User E-sign Co-sign Detail Recorded Client Recorded Date Recorded By Document 12/19/22 09:23 Yun Yunop 12/19/22 09:35 Document 12/26/22 10:15 Desktop 12/26/22 10:26 12/19/22 12/26/22 09:23 10:15 Wound Center Nurse 1 1-RLE Distal -Combined with other wound No -Current Size (cm) - Length 6.4 8.8 -Current Size (cm) - Width 4.5 7.7 -Current Size (cm) - Depth 0.2 0.3 -Total Square Cm 28.80 67.76 -Photo Taken Yes -Epithelialization Small 1-33% -Tunneling No -Undermining/Tunneling No -Circular Undermining No -Exudate Amt Medium Medium -Exudate Type Serosanguineous Serosanguineous -Wound Margin Flat & Intact Thickened -Granulation Amt Medium (34-66%) Large (67-100%) -Granulation Quality Red Red -Slough/Fibrin Yes -Necrosis Amt Small (1-33%) Small (1-33%) -Necrotic Tissue Type Adherent Slough Adherent Slough -Structure Exposed N/A -Texture (Tameka-wound Skin Appearance) Assessed, Assessed Localized Edema -Moisture (Tameka-wound Skin Appearance) Assessed,Dry/ Assessed Scaly -Color (Tameka-wound Skin Appearance) Assessed Erythema -Temperature (Tameka-wound Skin No Abnormality No Abnormality Appearance) (Pt Warm) (Pt Warm) -Tenderness on Palpation (Tameka-wound No Skin Appearance) -Ulcer Cleansing Wound Cleanser Soap and Water -Foul Odor after Cleansing No -Anesthetic Used 5% Lidocaine 5% Lidocaine Gel Gel RT MED LOWER LEG -Current Size (cm) - Length 1.5 -Current Size (cm) - Width 2.1 -Current Size (cm) - Depth 0.1 -Total Square Cm 3.15 -Exudate Amt Small -Exudate Type Serosanguineous -Wound Margin Distinct, Outline Attached -Texture (Tameka-wound Skin Appearance) Assessed -Moisture (Tameka-wound Skin Appearance) Assessed -Color (Tameka-wound Skin Appearance) Assessed -Temperature (Tameka-wound Skin No Abnormality Appearance) (Pt Warm) -Ulcer Cleansing Soap and Water -Anesthetic Used 5% Lidocaine Gel Lower Limb Edema Present Yes Right Calf (cm) 37.0 35.5 Right Ankle (cm) 24.0 24.5 WC - Nurse 2 - General Ulcer CM Notes Start: 12/19/22 09:22 Freq: Status: Active Protocol: Activity Type Activity Date Activity User E-sign Co-sign Detail Recorded Client Recorded Date Recorded By Document 12/19/22 17:54 PL [id number] 12/19/22 17:58 PL Document 12/26/22 16:32 PL [id number] 12/26/22 16:36 PL 12/19/22 12/26/22 17:54 16:32 Wound Center Nurse 2 #2 RLE -Time 09:41 -Correct Patient Yes -Correct Side, Site, Position Yes -Correct Procedure Yes -Procedure Performed Yes No -Type of Procedure Debridement -Clinical Debridement Subcutaneous -Tissue Removed Subcutaneous -Post Debridement (cm) - Length 8.0 -Post Debridement (cm) - Width 9.0 -Post Debridement (cm) - Depth 0.2 -Total Square (Post) (cm) 72.00 -Area of Debridement (cm) - Length 8.0 -Area of Debridement (cm) - Width 9.0 -Total Square (Area) (cm) 72.00 -Tunneling No -Undermining/Tunneling No -Circular Undermining No -Wound/Ulcer Outcome Not Healed Healed- Epithelialized -Ulcer Cleansing Rinsed/ Irrigated with Saline -Foul Odor after Cleansing No -Bioengineered Tissue No -Bleeding Controlled with Pressure -Treatment Response Procedure Tolerated Well -Debridement - Subq, 1st 20sq cm Yes -Debridement, SubQ, ea addt'l 20sq cm 3 or part thereof 1-RLE Distal -Time 09:41 -Correct Patient Yes -Correct Side, Site, Position Yes -Correct Procedure Yes -Procedure Performed Yes No -Type of Procedure Debridement -Clinical Debridement Subcutaneous -Tissue Removed Subcutaneous -Post Debridement (cm) - Length 0.5 -Post Debridement (cm) - Width 0.5 -Post Debridement (cm) - Depth 0.1 -Total Square (Post) (cm) 0.25 -Area of Debridement (cm) - Length 0.5 -Area of Debridement (cm) - Width 0.5 -Total Square (Area) (cm) 0.25 -Tunneling No -Undermining/Tunneling No -Circular Undermining No -Wound/Ulcer Outcome Not Healed Healed- Epithelialized -Ulcer Cleansing Rinsed/ Irrigated with Saline -Foul Odor after Cleansing No -Bioengineered Tissue No -Bleeding Controlled with Pressure -Treatment Response Procedure Tolerated Well -Debridement - Subq, 1st 20sq cm No RT MED LOWER LEG -Time 10:35 -Correct Patient Yes -Correct Side, Site, Position Yes -Correct Procedure Yes -Procedure Performed Yes -Type of Procedure Debridement -Clinical Debridement Subcutaneous -Tissue Removed Subcutaneous -Post Debridement (cm) - Length 6.8 -Post Debridement (cm) - Width 6.4 -Post Debridement (cm) - Depth 0.2 -Total Square (Post) (cm) 43.52 -Area of Debridement (cm) - Length 6.8 -Area of Debridement (cm) - Width 6.4 -Total Square (Area) (cm) 43.52 -Tunneling No -Undermining/Tunneling No -Circular Undermining No -Wound/Ulcer Outcome Not Healed -Ulcer Cleansing Rinsed/ Irrigated with Saline -Foul Odor after Cleansing No -Bioengineered Tissue Yes -Type of Bioengineered Tissue Epifix Mesh -Expiration Date 09/08/27 -Product Lot Number [id number] -Percent Used 100 -Bleeding Controlled with Pressure -Treatment Response Procedure Tolerated Well -Debridement - Subq, 1st 20sq cm No -Apply Skin Sub - 1st 25 sq cm - Legs 1 -Apply Skin Sub - each addt'l 25 sq cm 1 - Legs -Epifix Mesh (per sq cm) 11 Pain Scale: 0-10 Numeric Is Patient Pain Free? Yes Yes - Nurse 3 - General Ulcer D/C NN Start: 12/19/22 09:22 Freq: Status: Active Protocol: Activity Type Activity Date Activity User E-sign Co-sign Detail Recorded Client Recorded Date Recorded By Document 12/26/22 11:13 DL Desktop 12/26/22 11:15 DL 12/26/22 11:13 Wound Care Center Nurse 3 #2 RLE -Foul Odor after Cleansing No -Other Dressing epi/mepilex 1-RLE Distal -Ulcer Cleansing Not Cleansed -Other Dressing epi/mepilex -Other Covering Tubigrip RT MED LOWER LEG -Ulcer Cleansing Not Cleansed -Primary Dressing Applied Mepilex Border -Other Dressing epi -Mepilex Border 1 Treatment Response Procedure Tolerated Well Pain Scale: 0-10 Numeric Is Patient Pain Free? Yes - Visit Discharge Discharge Condition Stable Ambulatory Status Ambulatory Transportation Private Auto Facility Type Home Health Orders Sent Yes Assessment/Plan Assessment/Plan (1) Leg wound, right: CODE(S): S81.801A - Unspecified open wound, right lower leg, initial encounter (2) Non-pressure chronic ulcer of right calf with fat layer exposed: CODE(S): L97.212 - Non-pressure chronic ulcer of right calf with fat layer exposed PLAN: Plan Patient seen and evaluated I reviewed prior documentation from ED visit 11/30/2022 and history of hospital stay following. Ulceration to the right lower extremity was debrided as noted in the clinical panel above. Proximal right lower extremity wound measures 6.8 cm x 6.4 cm x 0.3 cm in distal right lower extremity wound has healed. EpiFix graft #1 applied to the wound bed and dressed with Adaptic touch and anchored with Steri- Strips. Dressed with dry sterile dressing. They are instructed to change outer dressing as needed. He was instructed to not get the site wet. Wound demonstrates reduction in size versus previous visit with most distal woun d healed. He was approved for advanced skin care product, EpiFix. We will continue application Discussed adequate protein intake for continued wound healing. He is to elevate lower extremity at times of rest to aid in any edema control. Discussed how this will improve wound healing. He is continuing daily exercise of walking a mile despite medical problems. States overall he feels good and would like to continue this. He would like to get back to running 5 miles a day which he was doing regularly prior to his fall. Discussed good supportive shoe gear today. Patient does wear ASIC shoes and are noted to be supportive. Discussed signs and symptoms of infection. Discussed if he notices any redness about the wound margin moving up the leg, purulent drainage from the site, increasing foul odor from the wound site, or if he experiences fever greater than 101 degree, nausea, vomiting, chills these are a sign of progressing infection and he should report to the ED. He and his both voiced understanding of this. The following work up and care recommendations were made: Dressing: EpiFix, Adaptic touch, Steri-Strips, dry sterile dressing. Change outer dressings as needed. Wash: Do not get wet Tissue growth optimization: EpiFix Offload: Ensure nothing bumps anterior right lower extremity. Keep dressing intact providing protection. Vascular: Palpable DP and PT pulses with adequate capillary fill time to the digits. Do not feel vascular status is impacting wound healing. Edema: There is some mild localized edema about the wound margins. Discussed elevation of lower extremities to aid in wound healing. Infection: No signs of infection. Pain: May take [id number] Tylenol for discomfort. Host factors: No current factors impacting healing. Patient otherwise healthy. I answered all the patient's questions. To return to the wound healing center in 1 week or call sooner if the patient has any questions or concerns.
[2023-01-02 11:04] VITALS: BP 140/61; PULSE 78; RESP 20; TEMP 36.6; BMI 19.9
--- NOTE | 2023-01-02 18:47 | PCM.WC.PN ---
History of Present Illness Date of Service: 01/02/23 Chief Complaint: Right lower extremity wound History of Wound: Patient is a 72-year-old male who presents to the wound care center for nonhealing left lower extremity wound. He has PMHx of stroke, prostate cancer, PE, subarachnoid hemorrhage. Patient states that 3 weeks ago he was standing on a step ladder painting the outside of the house and lost balance falling onto some gravel rocks. He presented to the [facility] ED on 11/30/2022 with laceration to scalp and right lower extremity. Lacerations repaired with 2 munira placed into the head laceration and eleven 4-0 nylon simple interrupted sutures placed into the right lower extremity with central defect secondary to loss of skin coverage. During fall he also suffered for rib fractures and ultimately developed pneumothorax and was admitted to the [facility]. He did have chest tube placed which has been pulled and healing well. They state they have been keeping the wound clean and dry to the right lower extremity however wound has failed to progress in healing with eschar noted to the wound bed. He denies being diabetic. Denies constitutional symptoms. Denies further complaints. Subjective Subjective This is a 72-year-old male who presents to the wound care center today for follow-up of right lower extremity ulceration secondary to fall. He is changing outer dressings as needed. He remains active with daily walking. Denies any constitutional symptoms. Denies further complaints. Objective Data Objective Data Vital Signs: Vital Signs Temp Pulse Resp BP O2 Del Method 98 F 78 20 H 140/61 H Room Air 01/02/23 11:04 01/02/23 11:04 01/02/23 11:04 01/02/23 11:04 12/26/22 10:15 Oxygen Delivery Method Room Air Weight: 63.049 kg Body Mass Index (BMI) 19.9 Physical Exam Const alert, oriented x3 and no apparent distress General Appearance: cooperative HEENT normocephalic Eyes General Eye: normal appearance of both eyes Neck General: normal visual inspection Lymph Lymphatic: no lymphadenopathy noted and no lymphedema noted Chest Chest Narrative: Healing wound secondary to chest tube placement right side. No signs of infection. Skin friable with gauze dressing covering. Resp normal respiratory effort Cardio regular rate and regular rhythm Extremity normal capillary refill, no joint enlargement, no calf tenderness and no pedal edema Extremity Narrative: Vascular: DP and PT pulses palpable bilateral. Capillary fill time less than 5 seconds to the digits bilateral. No pedal edema, no lymphadenopathy, no lymphangitic streaking. Negative Homans' sign, negative Tijerina sign to right lower extremity. Dermatological: Traumatic ulceration noted to the right anterior and lateral lower extremity with fibrogranular tissue and eschar in the wound bed. No erythema, no purulent drainage, no malodor, no palpable fluctuance/bogginess noted, no visible abscess formation, no lymphangitic streaking, no other signs of infection. Musculoskeletal: Muscle strength 5 of 5 age-appropriate. Decreased range of motion of the ankle joint in dorsiflexion with the knee extended without pain or crepitus bilateral. Enlarged palpable styloid process fifth metatarsal base left foot. No pain to palpation to bones of foot or ankle bilateral. Skin no rashes or lesions noted, skin turgor normal and no jaundice Neuro oriented x3 and moves all extremities Debridement Note Debridement Note Wound debrided: Right lower extremity Laterality: Right Wound Grade/Stage: Mendez stage I Type of Debridement: Excisional debridement Anesthesia Used: 5% Lidocaine Gel Depth: Down to and including healthy tissue and in the subcutaneous layer Percentage of wound debrided: 100 Instrument Used: 7mm curette Tissue Removed: Fibrous, devitalized subcutaneous, biofilm, slough Severity: Fat Layer Exposed Amount of bleeding with debridement: Mild Bleeding Controlled with: Compression and gauze Patient tolerated procedure: Patient tolerated procedure well Post-Debridement Measurements and Additional Note: Post-Debridement Measurements/Treatment - Nurse 1 - General Ulcer Assessment Start: 12/19/22 09:22 Freq: Status: Active Protocol: SIRISHA Activity Type Activity Date Activity User E-sign Co-sign Detail Recorded Client Recorded Date Recorded By Document 12/19/22 09:23 Desktop 12/19/22 09:35 JF Document 12/26/22 10:15 KW Desktop 12/26/22 10:26 KW Document 01/02/23 11:04 DL Desktop 01/02/23 11:17 DL 12/19/22 12/26/22 01/02/23 09:23 10:15 11:04 - Today's Visit Information Type of service Initial Visit Follow-up Visit Follow-up Visit (Physician/[employer]ISS[employer] OFFICER (Physician/[employer]ONNAISSANCE OFFICER ) ) Arrival Mode Ambulatory,Cane Ambulatory Ambulatory Transfer Assistance None Accompanied by Patient Identification Verified (Name & Yes Yes Yes ) Patient Requires Transmission-Based No No Precautions Height and Weight Height 5 ft 10 in Weight 63.049 kg Weight in Pounds 139.0 lbs Body Mass Index (BMI) 19.9 19.9 19.9 BMI Classification Normal Normal Normal BSA - Naun 1.79 Vital Signs Temperature (97.8 F-99.1 F) 97.0 F L 97.5 F L 98 F Temperature Source Temporal Temporal Temporal Pulse Rate (60-100) 76 70 78 Pulse Location Monitor Monitor Monitor Respiratory Rate (12-18) 18 18 20 H Respiratory rate source Observation Observation Observation Oxygen Delivery Method Room Air Blood Pressure (90/60-120/80) 145/62 H 135/70 H 140/61 H Blood Pressure Mean (mm Hg) 89 91 87 Source Monitor Monitor Monitor Position Semi-Fowlers Semi-Fowlers Blood Pressure Location Right Arm Left Arm History Since Last Visit- (Skip if this is Patient's initial visit) Have you changed medications since your No No No last visit? Any new allergies or adverse reactions No No No Had a fall/change in ADL's that may No No No increase risk of falls Signs or symptoms of abuse and/or No No No neglect since last visit Have you been in the hospital since your No No No last visit? Has dressing in place as prescribed Yes Yes Yes Has compression in place as prescribed Yes Yes Yes Has offloadiing in place as prescribed N/A No N/A Experienced any changes in pain level or No No No management Left Footwear Regular Shoe Regular Shoe Right Footwear Regular Shoe Regular Shoe Pain Scale: 0-10 Numeric Is Patient Pain Free? Yes Yes Yes WC - Nurse 1 - General Ulcer Measurement Start: 12/19/22 09:22 Freq: Status: Active Protocol: Activity Type Activity Date Activity User E-sign Co-sign Detail Recorded Client Recorded Date Recorded By Document 12/19/22 09:23 JF Desktop 12/19/22 09:35 JF Document 12/26/22 10:15 KW Desktop 12/26/22 10:26 KW Document 01/02/23 11:04 DL Desktop 01/02/23 11:17 DL 12/19/22 12/26/22 01/02/23 09:23 10:15 11:04 Wound Center Nurse 1 1-RLE Distal -Combined with other wound No -Current Size (cm) - Length 6.4 8.8 -Current Size (cm) - Width 4.5 7.7 -Current Size (cm) - Depth 0.2 0.3 -Total Square Cm 28.80 67.76 -Photo Taken Yes -Epithelialization Small 1-33% -Tunneling No -Undermining/Tunneling No -Circular Undermining No -Exudate Amt Medium Medium -Exudate Type Serosanguineous Serosanguineous -Wound Margin Flat & Intact Thickened -Granulation Amt Medium (34-66%) Large (67-100%) -Granulation Quality Red Red -Slough/Fibrin Yes -Necrosis Amt Small (1-33%) Small (1-33%) -Necrotic Tissue Type Adherent Slough Adherent Slough -Structure Exposed N/A -Texture (Tameka-wound Skin Appearance) Assessed, Assessed Localized Edema -Moisture (Tameka-wound Skin Appearance) Assessed,Dry/ Assessed Scaly -Color (Tameka-wound Skin Appearance) Assessed Erythema -Temperature (Tameka-wound Skin No Abnormality No Abnormality Appearance) (Pt Warm) (Pt Warm) -Tenderness on Palpation (Tameka-wound No Skin Appearance) -Ulcer Cleansing Wound Cleanser Soap and Water -Foul Odor after Cleansing No -Anesthetic Used 5% Lidocaine 5% Lidocaine Gel Gel RT MED LOWER LEG -Current Size (cm) - Length 1.5 6.7 -Current Size (cm) - Width 2.1 2.9 -Current Size (cm) - Depth 0.1 0.3 -Total Square Cm 3.15 19.43 -Exudate Amt Small Medium -Exudate Type Serosanguineous Serosanguineous -Wound Margin Distinct, Distinct, Outline Outline Attached Attached -Granulation Amt Medium (34-66%) -Granulation Quality Red -Necrosis Amt Medium (34-66%) -Necrotic Tissue Type Adherent Slough -Structure Exposed N/A -Texture (Tameka-wound Skin Appearance) Assessed Scarring -Moisture (Tameka-wound Skin Appearance) Assessed No Abnormality -Color (Tameka-wound Skin Appearance) Assessed No Abnormality -Temperature (Tameka-wound Skin No Abnormality No Abnormality Appearance) (Pt Warm) (Pt Warm) -Tenderness on Palpation (Tameka-wound No Skin Appearance) -Ulcer Cleansing Soap and Water Soap and Water -Foul Odor after Cleansing No -Anesthetic Used 5% Lidocaine 5% Lidocaine Gel Gel Lower Limb Edema Present Yes Right Calf (cm) 37.0 35.5 34.5 Right Ankle (cm) 24.0 24.5 21 WC - Nurse 2 - General Ulcer CM Notes Start: 12/19/22 09:22 Freq: Status: Active Protocol: Activity Type Activity Date Activity User E-sign Co-sign Detail Recorded Client Recorded Date Recorded By Document 12/19/22 17:54 PL [id number] 12/19/22 17:58 PL Document 12/26/22 16:32 PL [id number] 12/26/22 16:36 PL Document 01/02/23 17:24 PL [id number] 01/02/23 17:25 PL 12/19/22 12/26/22 01/02/23 17:54 16:32 17:24 Wound Center Nurse 2 #2 RLE -Time 09:41 -Correct Patient Yes -Correct Side, Site, Position Yes -Correct Procedure Yes -Procedure Performed Yes No -Type of Procedure Debridement -Clinical Debridement Subcutaneous -Tissue Removed Subcutaneous -Post Debridement (cm) - Length 8.0 -Post Debridement (cm) - Width 9.0 -Post Debridement (cm) - Depth 0.2 -Total Square (Post) (cm) 72.00 -Area of Debridement (cm) - Length 8.0 -Area of Debridement (cm) - Width 9.0 -Total Square (Area) (cm) 72.00 -Tunneling No -Undermining/Tunneling No -Circular Undermining No -Wound/Ulcer Outcome Not Healed Healed- Epithelialized -Ulcer Cleansing Rinsed/ Irrigated with Saline -Foul Odor after Cleansing No -Bioengineered Tissue No -Bleeding Controlled with Pressure -Treatment Response Procedure Tolerated Well -Debridement - Subq, 1st 20sq cm Yes -Debridement, SubQ, ea addt'l 20sq cm 3 or part thereof 1-RLE Distal -Time 09:41 -Correct Patient Yes -Correct Side, Site, Position Yes -Correct Procedure Yes -Procedure Performed Yes No -Type of Procedure Debridement -Clinical Debridement Subcutaneous -Tissue Removed Subcutaneous -Post Debridement (cm) - Length 0.5 -Post Debridement (cm) - Width 0.5 -Post Debridement (cm) - Depth 0.1 -Total Square (Post) (cm) 0.25 -Area of Debridement (cm) - Length 0.5 -Area of Debridement (cm) - Width 0.5 -Total Square (Area) (cm) 0.25 -Tunneling No -Undermining/Tunneling No -Circular Undermining No -Wound/Ulcer Outcome Not Healed Healed- Epithelialized -Ulcer Cleansing Rinsed/ Irrigated with Saline -Foul Odor after Cleansing No -Bioengineered Tissue No -Bleeding Controlled with Pressure -Treatment Response Procedure Tolerated Well -Debridement - Subq, 1st 20sq cm No RT MED LOWER LEG -Time 10:35 11:40 -Correct Patient Yes Yes -Correct Side, Site, Position Yes Yes -Correct Procedure Yes Yes -Procedure Performed Yes Yes -Type of Procedure Debridement Debridement -Clinical Debridement Subcutaneous Subcutaneous -Tissue Removed Subcutaneous Subcutaneous -Post Debridement (cm) - Length 6.8 5.9 -Post Debridement (cm) - Width 6.4 3.1 -Post Debridement (cm) - Depth 0.2 0.2 -Total Square (Post) (cm) 43.52 18.29 -Area of Debridement (cm) - Length 6.8 5.9 -Area of Debridement (cm) - Width 6.4 3.1 -Total Square (Area) (cm) 43.52 18.29 -Tunneling No No -Undermining/Tunneling No No -Circular Undermining No No -Wound/Ulcer Outcome Not Healed Not Healed -Ulcer Cleansing Rinsed/ Rinsed/ Irrigated with Irrigated with Saline Saline -Foul Odor after Cleansing No No -Bioengineered Tissue Yes No -Type of Bioengineered Tissue Epifix Mesh Epifix Mesh -Expiration Date 09/08/27 -Product Lot Number [id number] -Percent Used 100 -Bleeding Controlled with Pressure Pressure -Treatment Response Procedure Procedure Tolerated Well Tolerated Well -Debridement - Subq, 1st 20sq cm No No -Apply Skin Sub - 1st 25 sq cm - Legs 1 1 -Apply Skin Sub - each addt'l 25 sq cm 1 - Legs -Epifix Mesh (per sq cm) 11 11 Pain Scale: 0-10 Numeric Is Patient Pain Free? Yes Yes Yes WC - Nurse 3 - General Ulcer D/C NN Start: 12/19/22 09:22 Freq: Status: Active Protocol: Activity Type Activity Date Activity User E-sign Co-sign Detail Recorded Client Recorded Date Recorded By Document 12/26/22 11:13 DL Desktop 12/26/22 11:15 DL Document 01/02/23 12:05 KW [id number] 01/02/23 12:06 KW 12/26/22 01/02/23 11:13 12:05 Wound Care Center Nurse 3 #2 RLE -Foul Odor after Cleansing No -Other Dressing epi/mepilex 1-RLE Distal -Ulcer Cleansing Not Cleansed -Other Dressing epi/mepilex -Other Covering Tubigrip RT MED LOWER LEG -Ulcer Cleansing Not Cleansed -Primary Dressing Applied Mepilex Border -Other Dressing epi -Primary Dressing Covered/Secured with Dry Gauze & Roll Gauze, Secured with Tape -Mepilex Border 1 Right -Tubular Bandage Single Layer -Size of Tubigrip Used Size D -Size D ($) 1 Treatment Response Procedure Tolerated Well Pain Scale: 0-10 Numeric Is Patient Pain Free? Yes Yes WC - Visit Discharge Discharge Condition Stable Stable Ambulatory Status Ambulatory Ambulatory Transportation Private Auto Private Auto Medication Reconcilliation completed & No provided to patient/care provider Clinical Summary of Care Provided Yes Facility Type Home Health Orders Sent Yes Assessment/Plan Assessment/Plan (1) Leg wound, right: CODE(S): S81.801A - Unspecified open wound, right lower leg, initial encounter (2) Non-pressure chronic ulcer of right calf with fat layer exposed: CODE(S): L97.212 - Non-pressure chronic ulcer of right calf with fat layer exposed PLAN: Plan Patient seen and evaluated I reviewed prior documentation from ED visit 11/30/2022 and history of hospital stay following. Ulceration to the right lower extremity was debrided as noted in the clinical panel above. Proximal right lower extremity wound measures 6.8 cm x 3.1 cm x 0.2 cm in distal right lower extremity wound has healed. EpiFix graft #2 applied to the wound bed and dressed with Adaptic touch and anchored with Steri-Strips. Dressed with dry sterile dressing. They are instructed to change outer dressing as needed. He was instructed to not get the site wet. Wound demonstrates reduction in size versus previous visit. Distal wound remains healed. He was approved for advanced skin care product, EpiFix. We will continue application Discussed adequate protein intake for continued wound healing. He is to elevate lower extremity at times of rest to aid in any edema control. Discussed how this will improve wound healing. He is continuing daily exercise of walking a mile despite medical problems. States overall he feels good and would like to continue this. He would like to get back to running 5 miles a day which he was doing regularly prior to his fall. Discussed good supportive shoe gear today. Patient does wear ASIC shoes and are noted to be supportive. Discussed signs and symptoms of infection. Discussed if he notices any redness about the wound margin moving up the leg, purulent drainage from the site, increasing foul odor from the wound site, or if he experiences fever greater than 101 degree, nausea, vomiting, chills these are a sign of progressing infection and he should report to the ED. He and his both voiced understanding of this. The following work up and care recommendations were made: Dressing: EpiFix, Adaptic touch, Steri-Strips, dry sterile dressing. Change outer dressings as needed. Wash: Do not get wet Tissue growth optimization: EpiFix Offload: Ensure nothing bumps anterior right lower extremity. Keep dressing intact providing protection. Vascular: Palpable DP and PT pulses with adequate capillary fill time to the digits. Do not feel vascular status is impacting wound healing. Edema: There is some mild localized edema about the wound margins. Discussed elevation of lower extremities to aid in wound healing. Infection: No signs of infection. Pain: May take [id number] Tylenol for discomfort. Host factors: No current factors impacting healing. Patient otherwise healthy. I answered all the patient's questions. To return to the wound healing center in 2 weeks or call sooner if the patient has any questions or concerns.
== END 2023-01-07 23:59 | disposition home or self-care (01) ==
LOC: WC 11:00
PROVIDERS: PCP Family Medicine; Referring Provider Emergency Medicine; Visit Provider Student in an Organized Health Care Education/Training Program
DX: S01.91XA Laceration without foreign body of unspecified part of head, initial encounter (principal); L97.212 Non-pressure chronic ulcer of right calf with fat layer exposed; S22.49XD Multiple fractures of ribs, unspecified side, subsequent encounter for fracture with routine healing; Z86.73 Personal history of transient ischemic attack (TIA), and cerebral infarction without residual deficits; Z85.46 Personal history of malignant neoplasm of prostate; Z86.711 Personal history of pulmonary embolism
CPT/HCPCS: 11042; 11045; 15271; 15272; 99213; Q4186; G0463

== ENCOUNTER 2023-02-06 11:00 | Outpatient (RCR) | payer MEDICARE, SELFPAY ==
[2023-01-08 00:30] VITALS: BP 140/61; PULSE 78; RESP 20; TEMP 36.6; BMI 19.9
[2023-01-16 11:35] VITALS: BP 129/55; PULSE 71; RESP 18; TEMP 36.2; BMI 19.9
--- NOTE | 2023-01-16 19:30 | PCM.WC.PN ---
History of Present Illness Date of Service: 01/16/23 Chief Complaint: Right lower extremity wound History of Wound: Patient is a 72-year-old male who presents to the wound care center for nonhealing left lower extremity wound. He has PMHx of stroke, prostate cancer, PE, subarachnoid hemorrhage. Patient states that 3 weeks ago he was standing on a step ladder painting the outside of the house and lost balance falling onto some gravel rocks. He presented to the [facility] ED on 11/30/2022 with laceration to scalp and right lower extremity. Lacerations repaired with 2 munira placed into the head laceration and eleven 4-0 nylon simple interrupted sutures placed into the right lower extremity with central defect secondary to loss of skin coverage. During fall he also suffered for rib fractures and ultimately developed pneumothorax and was admitted to the [facility]. He did have chest tube placed which has been pulled and healing well. They state they have been keeping the wound clean and dry to the right lower extremity however wound has failed to progress in healing with eschar noted to the wound bed. He denies being diabetic. Denies constitutional symptoms. Denies further complaints. Subjective Subjective This is a 72-year-old male who presents to the wound care center today for follow-up of right lower extremity ulceration secondary to fall. He is changing outer dressings as needed. He remains active with daily walking. He states he believes this wound is getting smaller. Denies any constitutional symptoms. Denies further complaints. Objective Data Objective Data Vital Signs: Vital Signs Temp Pulse Resp BP O2 Del Method 97.1 F L 71 18 129/55 H Room Air 01/16/23 11:35 01/16/23 11:35 01/16/23 11:35 01/16/23 11:35 01/16/23 11:35 Oxygen Delivery Method Room Air Weight: 63.049 kg Body Mass Index (BMI) 19.9 Physical Exam Const alert, oriented x3 and no apparent distress General Appearance: cooperative HEENT normocephalic Eyes General Eye: normal appearance of both eyes Neck General: normal visual inspection Lymph Lymphatic: no lymphadenopathy noted and no lymphedema noted Resp normal respiratory effort Cardio regular rate and regular rhythm Extremity normal capillary refill, no joint enlargement, no calf tenderness and no pedal edema Extremity Narrative: Vascular: DP and PT pulses palpable bilateral. Capillary fill time less than 5 seconds to the digits bilateral. No pedal edema, no lymphadenopathy, no lymphangitic streaking. Negative Homans' sign, negative Tijerina sign to right lower extremity. Dermatological: Traumatic ulceration noted to the right anterior and lateral lower extremity with granular wound bed. No erythema, no purulent drainage, no malodor, no palpable fluctuance/bogginess noted, no visible abscess formation, no lymphangitic streaking, no other signs of infection. Musculoskeletal: Muscle strength 5 of 5 age-appropriate. Decreased range of motion of the ankle joint in dorsiflexion with the knee extended without pain or crepitus bilateral. Enlarged palpable styloid process fifth metatarsal base left foot. No pain to palpation to bones of foot or ankle bilateral. Skin no rashes or lesions noted, skin turgor normal and no jaundice Neuro moves all extremities Debridement Note Debridement Note Wound debrided: Right lower extremity Laterality: Right Wound Grade/Stage: Mendez stage I Type of Debridement: Excisional debridement Anesthesia Used: 5% Lidocaine Gel Depth: Down to and including healthy tissue and in the subcutaneous layer Percentage of wound debrided: 100 Instrument Used: 5mm curette Tissue Removed: Fibrous, devitalized subcutaneous, biofilm, slough Severity: Fat Layer Exposed Amount of bleeding with debridement: Mild Bleeding Controlled with: Compression and gauze Patient tolerated procedure: Patient tolerated procedure well Post-Debridement Measurements and Additional Note: Post-Debridement Measurements/Treatment - Nurse 1 - General Ulcer Assessment Start: 01/16/23 11:34 Freq: Status: Active Protocol: .LOWEXT Activity Type Activity Date Activity User E-sign Co-sign Detail Recorded Client Recorded Date Recorded By Document 01/16/23 11:35 Desktop 01/16/23 11:41 KW 01/16/23 11:35 - Today's Visit Information Type of service Follow-up Visit (Physician/TRADER FIXED INCOME ) Arrival Mode Ambulatory Accompanied by Patient Identification Verified (Name & Yes ) Height and Weight Body Mass Index (BMI) 19.9 BMI Classification Normal Vital Signs Temperature (97.8 F-99.1 F) 97.1 F L Temperature Source Temporal Pulse Rate (60-100) 71 Pulse Location Monitor Respiratory Rate (12-18) 18 Respiratory rate source Observation Oxygen Delivery Method Room Air Blood Pressure (90/60-120/80) 129/55 H Blood Pressure Mean (mm Hg) 79 Source Monitor Position Semi-Fowlers History Since Last Visit- (Skip if this is Patient's initial visit) Have you changed medications since your No last visit? Any new allergies or adverse reactions No Had a fall/change in ADL's that may No increase risk of falls Signs or symptoms of abuse and/or No neglect since last visit Have you been in the hospital since your No last visit? Has dressing in place as prescribed Yes Has compression in place as prescribed Yes Has offloadiing in place as prescribed No Experienced any changes in pain level or No management Left Footwear Regular Shoe Right Footwear Regular Shoe Pain Scale: 0-10 Numeric Is Patient Pain Free? Yes - Nurse 1 - General Ulcer Measurement Start: 01/16/23 11:34 Freq: Status: Active Protocol: Activity Type Activity Date Activity User E-sign Co-sign Detail Recorded Client Recorded Date Recorded By Document 01/16/23 11:35 KW Desktop 01/16/23 11:41 KW 01/16/23 11:35 Wound Center Nurse 1 RT MED LOWER LEG -Current Size (cm) - Length 5.3 -Current Size (cm) - Width 2.6 -Current Size (cm) - Depth 0.1 -Total Square Cm 13.78 -Exudate Type Serosanguineous -Wound Margin Distinct, Outline Attached -Granulation Amt Small (1-33%) -Granulation Quality [place] -Necrosis Amt Medium (34-66%) -Necrotic Tissue Type Adherent Slough -Texture (Tameka-wound Skin Appearance) Assessed -Moisture (Tameka-wound Skin Appearance) Assessed -Color (Tameka-wound Skin Appearance) Assessed -Temperature (Tameka-wound Skin No Abnormality Appearance) (Pt Warm) -Ulcer Cleansing Soap and Water -Foul Odor after Cleansing No -Anesthetic Used 5% Lidocaine Gel Right Calf (cm) 36.5 Right Ankle (cm) 22 WC - Nurse 2 - General Ulcer CM Notes Start: 01/16/23 11:34 Freq: Status: Active Protocol: Activity Type Activity Date Activity User E-sign Co-sign Detail Recorded Client Recorded Date Recorded By Document 01/16/23 17:10 PL [id number] 01/16/23 17:12 PL 01/16/23 17:10 Wound Center Nurse 2 RT MED LOWER LEG -Time 12:03 -Correct Patient Yes -Correct Side, Site, Position Yes -Correct Procedure Yes -Procedure Performed Yes -Type of Procedure Debridement -Clinical Debridement Subcutaneous -Tissue Removed Subcutaneous -Post Debridement (cm) - Length 4.7 -Post Debridement (cm) - Width 2.2 -Post Debridement (cm) - Depth 0.2 -Total Square (Post) (cm) 10.34 -Area of Debridement (cm) - Length 4.7 -Area of Debridement (cm) - Width 2.2 -Total Square (Area) (cm) 10.34 -Tunneling No -Undermining/Tunneling No -Circular Undermining No -Wound/Ulcer Outcome Not Healed -Ulcer Cleansing Rinsed/ Irrigated with Saline -Foul Odor after Cleansing No -Bioengineered Tissue Yes -Type of Bioengineered Tissue Epifix Mesh -Expiration Date 09/08/27 -Product Lot Number [id number] -Percent Used 100 -Bleeding Controlled with Pressure -Treatment Response Procedure Tolerated Well -Debridement - Subq, 1st 20sq cm No -Apply Skin Sub - 1st 25 sq cm - Legs 1 -Epifix Mesh (per sq cm) 11 Pain Scale: 0-10 Numeric Is Patient Pain Free? Yes - Nurse 3 - General Ulcer D/C NN Start: 01/16/23 11:34 Freq: Status: Active Protocol: Activity Type Activity Date Activity User E-sign Co-sign Detail Recorded Client Recorded Date Recorded By Document 01/16/23 12:17 KW Desktop 01/16/23 12:18 KW 01/16/23 12:17 Wound Care Center Nurse 3 RT MED LOWER LEG -Ulcer Cleansing Rinsed/ Irrigated with Saline -Primary Dressing Covered/Secured with Dry Gauze & Roll Gauze, Secured with Tape Right -Tubular Bandage Single Layer -Size of Tubigrip Used Size D -Size D ($) 1 Pain Scale: 0-10 Numeric Is Patient Pain Free? Yes WC - Visit Discharge Discharge Condition Stable Ambulatory Status Ambulatory Transportation Private Auto Medication Reconcilliation completed & No provided to patient/care provider Clinical Summary of Care Provided Yes Assessment/Plan Assessment/Plan (1) Non-pressure chronic ulcer of right calf with fat layer exposed: CODE(S): L97.212 - Non-pressure chronic ulcer of right calf with fat layer exposed (2) Leg wound, right: CODE(S): S81.801A - Unspecified open wound, right lower leg, initial encounter PLAN: Plan Patient seen and evaluated Ulceration to the right lower extremity was debrided as noted in the clinical panel above. Proximal right lower extremity wound measures 4.7 cm x 2.2 cm x 0.2 cm in distal right lower extremity wound has healed. EpiFix graft #3 applied to the wound bed and dressed with Adaptic touch and anchored with Steri-Strips. Dressed with dry sterile dressing. They are instructed to change outer dressing as needed. He was instructed to not get the site wet. Wound demonstrates continued reduction in size versus previous visit. Distal wound remains healed. He was approved for advanced skin care product, EpiFix. We will continue application Discussed adequate protein intake for continued wound healing. He is to elevate lower extremity at times of rest to aid in any edema control. Discussed how this will improve wound healing. He is continuing daily exercise of walking a mile despite medical problems. States overall he feels good and would like to continue this. He would like to get back to running 5 miles a day which he was doing regularly prior to his fall. Discussed good supportive shoe gear today. Patient does wear ASIC shoes and are noted to be supportive. Discussed signs and symptoms of infection. Discussed if he notices any redness about the wound margin moving up the leg, purulent drainage from the site, increasing foul odor from the wound site, or if he experiences fever greater than 101 degree, nausea, vomiting, chills these are a sign of progressing infection and he should report to the ED. He and his both voiced understanding of this. The following work up and care recommendations were made: Dressing: EpiFix, Adaptic touch, Steri-Strips, dry sterile dressing. Change outer dressings as needed. Wash: Do not get wet Tissue growth optimization: EpiFix Offload: Ensure nothing bumps anterior right lower extremity. Keep dressing intact providing protection. Vascular: Palpable DP and PT pulses with adequate capillary fill time to the digits. Do not feel vascular status is impacting wound healing. Edema: There is some mild localized edema about the wound margins. Discussed elevation of lower extremities to aid in wound healing. Infection: No signs of infection. Pain: May take [id number] Tylenol for discomfort. Host factors: No current factors impacting healing. Patient otherwise healthy. I answered all the patient's questions. To return to the wound healing center in 1 week or call sooner if the patient has any questions or concerns.
[2023-01-23 10:57] VITALS: BP 103/74; PULSE 90; RESP 18; BMI 19.9
--- NOTE | 2023-01-23 12:04 | PCM.WC.PN ---
History of Present Illness Date of Service: 01/23/23 Chief Complaint: Right lower extremity wound History of Wound: Patient is a 72-year-old male who presents to the wound care center for nonhealing left lower extremity wound. He has PMHx of stroke, prostate cancer, PE, subarachnoid hemorrhage. Patient states that 3 weeks ago he was standing on a step ladder painting the outside of the house and lost balance falling onto some gravel rocks. He presented to the [facility] ED on 11/30/2022 with laceration to scalp and right lower extremity. Lacerations repaired with 2 munira placed into the head laceration and eleven 4-0 nylon simple interrupted sutures placed into the right lower extremity with central defect secondary to loss of skin coverage. During fall he also suffered for rib fractures and ultimately developed pneumothorax and was admitted to the [facility]. He did have chest tube placed which has been pulled and healing well. They state they have been keeping the wound clean and dry to the right lower extremity however wound has failed to progress in healing with eschar noted to the wound bed. He denies being diabetic. Denies constitutional symptoms. Denies further complaints. Subjective Subjective This is a 72-year-old male who presents to the wound care center today for follow-up of right lower extremity ulceration secondary to fall. He is changing outer dressings as needed. He remains active with daily walking. He states he believes this wound is getting smaller. Denies any constitutional symptoms. Denies further complaints. Objective Data Objective Data Vital Signs: Vital Signs Temp Pulse Resp BP O2 Del Method 97.1 F L 90 18 103/74 Room Air 01/16/23 11:35 01/23/23 10:57 01/23/23 10:57 01/23/23 10:57 01/23/23 10:57 Oxygen Delivery Method Room Air Weight: 63.049 kg Body Mass Index (BMI) 19.9 Physical Exam Const alert, oriented x3 and no apparent distress General Appearance: cooperative HEENT normocephalic Eyes General Eye: normal appearance of both eyes Neck General: normal visual inspection Lymph Lymphatic: no lymphadenopathy noted and no lymphedema noted Resp normal respiratory effort Cardio regular rate and regular rhythm Extremity normal capillary refill, no joint enlargement, no calf tenderness and no pedal edema Extremity Narrative: Vascular: DP and PT pulses palpable bilateral. Capillary fill time less than 5 seconds to the digits bilateral. No pedal edema, no lymphadenopathy, no lymphangitic streaking. Negative Homans' sign, negative Tijerina sign to right lower extremity. Dermatological: Traumatic ulceration noted to the right anterior and lateral lower extremity with granular wound bed. No erythema, no purulent drainage, no malodor, no palpable fluctuance/bogginess noted, no visible abscess formation, no lymphangitic streaking, no other signs of infection. Musculoskeletal: Muscle strength 5 of 5 age-appropriate. Decreased range of motion of the ankle joint in dorsiflexion with the knee extended without pain or crepitus bilateral. Enlarged palpable styloid process fifth metatarsal base left foot. No pain to palpation to bones of foot or ankle bilateral. Skin no rashes or lesions noted, skin turgor normal and no jaundice Neuro moves all extremities Debridement Note Debridement Note Wound debrided: Right lower extremity Laterality: Right Wound Grade/Stage: Mendez stage I Type of Debridement: Excisional debridement Anesthesia Used: 5% Lidocaine Gel Depth: Down to and including healthy tissue and in the subcutaneous layer Percentage of wound debrided: 100 Instrument Used: 5mm curette Tissue Removed: Fibrous, devitalized subcutaneous, biofilm, slough Severity: Fat Layer Exposed Amount of bleeding with debridement: Mild Bleeding Controlled with: Compression and gauze Patient tolerated procedure: Patient tolerated procedure well Post-Debridement Measurements and Additional Note: Post-Debridement Measurements/Treatment - Nurse 1 - General Ulcer Assessment Start: 01/16/23 11:34 Freq: Status: Active Protocol: WC.LOWEXT Activity Type Activity Date Activity User E-sign Co-sign Detail Recorded Client Recorded Date Recorded By Document 01/16/23 11:35 KW Desktop 01/16/23 11:41 KW Document 01/23/23 10:57 KW Desktop 01/23/23 11:05 KW 01/16/23 01/23/23 11:35 10:57 - Today's Visit Information Type of service Follow-up Visit Follow-up Visit (Physician/TALENT ACQUISITION LEAD (Physician/TALENT ACQUISITION LEAD ) ) Arrival Mode Ambulatory Ambulatory Accompanied by Patient Identification Verified (Name & Yes Yes ) Height and Weight Body Mass Index (BMI) 19.9 19.9 BMI Classification Normal Normal Vital Signs Temperature (97.8 F-99.1 F) 97.1 F L Temperature Source Temporal Pulse Rate (60-100) 71 90 Pulse Location Monitor Monitor Respiratory Rate (12-18) 18 18 Respiratory rate source Observation Observation Oxygen Delivery Method Room Air Room Air Blood Pressure (90/60-120/80) 129/55 H 103/74 Blood Pressure Mean (mm Hg) 79 83 Source Monitor Monitor Position Semi-Fowlers Sitting Blood Pressure Location Right Arm History Since Last Visit- (Skip if this is Patient's initial visit) Have you changed medications since your No No last visit? Any new allergies or adverse reactions No No Had a fall/change in ADL's that may No No increase risk of falls Signs or symptoms of abuse and/or No No neglect since last visit Have you been in the hospital since your No No last visit? Has dressing in place as prescribed Yes Yes Has compression in place as prescribed Yes Yes Has offloadiing in place as prescribed No No Experienced any changes in pain level or No No management Left Footwear Regular Shoe Regular Shoe Right Footwear Regular Shoe Regular Shoe Pain Scale: 0-10 Numeric Is Patient Pain Free? Yes Yes WC - Nurse 1 - General Ulcer Measurement Start: 01/16/23 11:34 Freq: Status: Active Protocol: Activity Type Activity Date Activity User E-sign Co-sign Detail Recorded Client Recorded Date Recorded By Document 01/16/23 11:35 KW Desktop 01/16/23 11:41 KW Document 01/23/23 10:57 KW Desktop 01/23/23 11:05 KW 01/16/23 01/23/23 11:35 10:57 Wound Center Nurse 1 RT MED LOWER LEG -Current Size (cm) - Length 5.3 -Current Size (cm) - Width 2.6 -Current Size (cm) - Depth 0.1 -Total Square Cm 13.78 -Exudate Amt Small -Exudate Type Serosanguineous Serosanguineous -Wound Margin Distinct, Distinct, Outline Outline Attached Attached -Granulation Amt Small (1-33%) Large (67-100%) -Granulation Quality [place] -Necrosis Amt Medium (34-66%) Small (1-33%) -Necrotic Tissue Type Adherent Slough Adherent Slough -Texture (Tameka-wound Skin Appearance) Assessed Assessed, Localized Edema -Moisture (Tameka-wound Skin Appearance) Assessed Assessed -Color (Tameka-wound Skin Appearance) Assessed Assessed, Erythema -Temperature (Tameka-wound Skin No Abnormality No Abnormality Appearance) (Pt Warm) (Pt Warm) -Ulcer Cleansing Soap and Water Soap and Water -Foul Odor after Cleansing No No -Anesthetic Used 5% Lidocaine 5% Lidocaine Gel Gel Right Calf (cm) 36.5 Right Ankle (cm) 22 WC - Nurse 2 - General Ulcer CM Notes Start: 01/16/23 11:34 Freq: Status: Active Protocol: Activity Type Activity Date Activity User E-sign Co-sign Detail Recorded Client Recorded Date Recorded By Document 01/16/23 17:10 PL [id number] 01/16/23 17:12 PL 01/16/23 17:10 Wound Center Nurse 2 -Time 12:03 -Correct Patient Yes -Correct Side, Site, Position Yes -Correct Procedure Yes -Procedure Performed Yes -Type of Procedure Debridement -Clinical Debridement Subcutaneous -Tissue Removed Subcutaneous -Post Debridement (cm) - Length 4.7 -Post Debridement (cm) - Width 2.2 -Post Debridement (cm) - Depth 0.2 -Total Square (Post) (cm) 10.34 -Area of Debridement (cm) - Length 4.7 -Area of Debridement (cm) - Width 2.2 -Total Square (Area) (cm) 10.34 -Tunneling No -Undermining/Tunneling No -Circular Undermining No -Wound/Ulcer Outcome Not Healed -Ulcer Cleansing Rinsed/ Irrigated with Saline -Foul Odor after Cleansing No -Bioengineered Tissue Yes -Type of Bioengineered Tissue Epifix Mesh -Expiration Date 09/08/27 -Product Lot Number [id number] -Percent Used 100 -Bleeding Controlled with Pressure -Treatment Response Procedure Tolerated Well -Debridement - Subq, 1st 20sq cm No -Apply Skin Sub - 1st 25 sq cm - Legs 1 -Epifix Mesh (per sq cm) 11 Pain Scale: 0-10 Numeric Is Patient Pain Free? Yes WC - Nurse 3 - General Ulcer D/C NN Start: 01/16/23 11:34 Freq: Status: Active Protocol: Activity Type Activity Date Activity User E-sign Co-sign Detail Recorded Client Recorded Date Recorded By Document 01/16/23 12:17 KW Desktop 01/16/23 12:18 KW Document 01/23/23 11:38 NRL Desktop 01/23/23 11:39 NRL 01/16/23 01/23/23 12:17 11:38 Wound Care Center Nurse 3 RT MED LOWER LEG -Ulcer Cleansing Rinsed/ Irrigated with Saline -Primary Dressing Covered/Secured with Dry Gauze & Dry Gauze & Roll Gauze, Roll Gauze Secured with Tape Right -Tubular Bandage Single Layer Single Layer -Size of Tubigrip Used Size D Size D -Size D ($) 1 1 Pain Scale: 0-10 Numeric Is Patient Pain Free? Yes Yes WC - Visit Discharge Discharge Condition Stable Stable Ambulatory Status Ambulatory Ambulatory Transportation Private Auto Private Auto Medication Reconcilliation completed & No Yes provided to patient/care provider Clinical Summary of Care Provided Yes Yes Assessment/Plan Assessment/Plan (1) Non-pressure chronic ulcer of right calf with fat layer exposed: CODE(S): L97.212 - Non-pressure chronic ulcer of right calf with fat layer exposed (2) Leg wound, right: CODE(S): S81.801A - Unspecified open wound, right lower leg, initial encounter PLAN: Plan Patient seen and evaluated Ulceration to the right lower extremity was debrided as noted in the clinical panel above. Proximal right lower extremity wound measures 4.7 cm x 1.7 cm x 0.2 cm in distal right lower extremity wound has healed. EpiFix graft #4 applied to the wound bed and dressed with Adaptic touch and anchored with Steri-Strips. Dressed with dry sterile dressing. They are instructed to change outer dressing as needed. He was instructed to not get the site wet. Wound demonstrates continued reduction in size versus previous visit. Distal wound remains healed. He was approved for advanced skin care product, EpiFix. We will continue application Discussed adequate protein intake for continued wound healing. He is to elevate lower extremity at times of rest to aid in any edema control. Discussed how this will improve wound healing. He is continuing daily exercise of walking a mile despite medical problems. States overall he feels good and would like to continue this. He would like to get back to running 5 miles a day which he was doing regularly prior to his fall. Discussed good supportive shoe gear today. Patient does wear ASIC shoes and are noted to be supportive. Discussed signs and symptoms of infection. Discussed if he notices any redness about the wound margin moving up the leg, purulent drainage from the site, increasing foul odor from the wound site, or if he experiences fever greater than 101 degree, nausea, vomiting, chills these are a sign of progressing infection and he should report to the ED. He and his both voiced understanding of this. The following work up and care recommendations were made: Dressing: EpiFix, Adaptic touch, Steri-Strips, dry sterile dressing. Change outer dressings as needed. Wash: Do not get wet Tissue growth optimization: EpiFix Offload: Ensure nothing bumps anterior right lower extremity. Keep dressing intact providing protection. Vascular: Palpable DP and PT pulses with adequate capillary fill time to the digits. Do not feel vascular status is impacting wound healing. Edema: There is some mild localized edema about the wound margins. Discussed elevation of lower extremities to aid in wound healing. Infection: No signs of infection. Pain: May take [id number] Tylenol for discomfort. Host factors: No current factors impacting healing. Patient otherwise healthy. I answered all the patient's questions. To return to the wound healing center in 2 weeks or call sooner if the patient has any questions or concerns.
[2023-02-06 11:19] VITALS: BP 120/77; PULSE 90; RESP 18; TEMP 36.4; BMI 19.9
--- NOTE | 2023-02-06 13:01 | PCM.WC.PN ---
History of Present Illness Date of Service: 02/06/23 Chief Complaint: Right lower extremity wound History of Wound: Patient is a 72-year-old male who presents to the wound care center for nonhealing left lower extremity wound. He has PMHx of stroke, prostate cancer, PE, subarachnoid hemorrhage. Patient states that 3 weeks ago he was standing on a step ladder painting the outside of the house and lost balance falling onto some gravel rocks. He presented to the [facility] ED on 11/30/2022 with laceration to scalp and right lower extremity. Lacerations repaired with 2 munira placed into the head laceration and eleven 4-0 nylon simple interrupted sutures placed into the right lower extremity with central defect secondary to loss of skin coverage. During fall he also suffered for rib fractures and ultimately developed pneumothorax and was admitted to the [facility]. He did have chest tube placed which has been pulled and healing well. They state they have been keeping the wound clean and dry to the right lower extremity however wound has failed to progress in healing with eschar noted to the wound bed. He denies being diabetic. Denies constitutional symptoms. Denies further complaints. Subjective Subjective This is a 72-year-old male who presents to the wound care center today for follow-up of right lower extremity ulceration secondary to fall. He is changing outer dressings as needed. He remains active with daily walking. He states he believes this wound is continuing to get smaller. Denies any constitutional symptoms. Denies further complaints. Objective Data Objective Data Vital Signs: Vital Signs Temp Pulse Resp BP O2 Del Method 97.5 F L 90 18 120/77 Room Air 02/06/23 11:19 02/06/23 11:19 02/06/23 11:19 02/06/23 11:19 02/06/23 11:19 Oxygen Delivery Method Room Air Weight: 63.049 kg Body Mass Index (BMI) 19.9 Physical Exam Const alert, oriented x3 and no apparent distress General Appearance: cooperative HEENT normocephalic Eyes General Eye: normal appearance of both eyes Neck General: normal visual inspection Lymph Lymphatic: no lymphadenopathy noted and no lymphedema noted Resp normal respiratory effort Cardio regular rate and regular rhythm Extremity normal capillary refill, no joint enlargement, no calf tenderness and no pedal edema Extremity Narrative: Vascular: DP and PT pulses palpable bilateral. Capillary fill time less than 5 seconds to the digits bilateral. No pedal edema, no lymphadenopathy, no lymphangitic streaking. Negative Homans' sign, negative Tijerina sign to right lower extremity. Dermatological: Traumatic ulceration noted to the right anterior and lateral lower extremity with granular wound bed. No erythema, no purulent drainage, no malodor, no palpable fluctuance/bogginess noted, no visible abscess formation, no lymphangitic streaking, no other signs of infection. Musculoskeletal: Muscle strength 5 of 5 age-appropriate. Decreased range of motion of the ankle joint in dorsiflexion with the knee extended without pain or crepitus bilateral. Enlarged palpable styloid process fifth metatarsal base left foot. No pain to palpation to bones of foot or ankle bilateral. Skin no rashes or lesions noted, skin turgor normal and no jaundice Neuro moves all extremities Debridement Note Debridement Note Wound debrided: Right lower extremity Laterality: Right Wound Grade/Stage: Mendez stage I Type of Debridement: Excisional debridement Anesthesia Used: 5% Lidocaine Gel Depth: Down to and including healthy tissue and in the subcutaneous layer Percentage of wound debrided: 100 Instrument Used: 5mm curette Tissue Removed: Fibrous, devitalized subcutaneous, biofilm, slough Severity: Fat Layer Exposed Amount of bleeding with debridement: Mild Bleeding Controlled with: Compression and gauze Patient tolerated procedure: Patient tolerated procedure well Post-Debridement Measurements and Additional Note: Post-Debridement Measurements/Treatment - Nurse 1 - General Ulcer Assessment Start: 01/16/23 11:34 Freq: Status: Active Protocol: WC.[email or web address] Activity Type Activity Date Activity User E-sign Co-sign Detail Recorded Client Recorded Date Recorded By Document 01/16/23 11:35 KW Desktop 01/16/23 11:41 KW Document 01/23/23 10:57 KW Desktop 01/23/23 11:05 KW Document 02/06/23 11:19 KW Desktop 02/06/23 11:28 KW 01/16/23 01/23/23 02/06/23 11:35 10:57 11:19 - Today's Visit Information Type of service Follow-up Visit Follow-up Visit Follow-up Visit (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/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 (Physician/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 (Physician/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 ) ) ) Arrival Mode Ambulatory Ambulatory Ambulatory Accompanied by Patient Identification Verified (Name & Yes Yes Yes ) Height and Weight Body Mass Index (BMI) 19.9 19.9 19.9 BMI Classification Normal Normal Normal Vital Signs Temperature (97.8 F-99.1 F) 97.1 F L 97.5 F L Temperature Source Temporal Temporal Pulse Rate (60-100) 71 90 90 Pulse Location Monitor Monitor Monitor Respiratory Rate (12-18) 18 18 18 Respiratory rate source Observation Observation Observation Oxygen Delivery Method Room Air Room Air Room Air Blood Pressure (90/60-120/80) 129/55 H 103/74 120/77 Blood Pressure Mean (mm Hg) 79 83 91 Source Monitor Monitor Monitor Position Semi-Fowlers Sitting Sitting Blood Pressure Location Right Arm Right Arm History Since Last Visit- (Skip if this is Patient's initial visit) Have you changed medications since your No No No last visit? Any new allergies or adverse reactions No No No Had a fall/change in ADL's that may No No No increase risk of falls Signs or symptoms of abuse and/or No No No neglect since last visit Have you been in the hospital since your No No No last visit? Has dressing in place as prescribed Yes Yes Yes Has compression in place as prescribed Yes Yes Yes Has offloadiing in place as prescribed No No No Experienced any changes in pain level or No No No management Left Footwear Regular Shoe Regular Shoe Regular Shoe Right Footwear Regular Shoe Regular Shoe Regular Shoe Pain Scale: 0-10 Numeric Is Patient Pain Free? Yes Yes Yes WC - Nurse 1 - General Ulcer Measurement Start: 01/16/23 11:34 Freq: Status: Active Protocol: Activity Type Activity Date Activity User E-sign Co-sign Detail Recorded Client Recorded Date Recorded By Document 01/16/23 11:35 KW Desktop 01/16/23 11:41 KW Document 01/23/23 10:57 KW Desktop 01/23/23 11:05 KW Document 02/06/23 11:19 KW Desktop 02/06/23 11:28 KW 01/16/23 01/23/23 02/06/23 11:35 10:57 11:19 Wound Center Nurse 1 RT MED LOWER LEG -Current Size (cm) - Length 5.3 2.0 -Current Size (cm) - Width 2.6 1.0 -Current Size (cm) - Depth 0.1 0.1 -Total Square Cm 13.78 2.00 -Exudate Amt Small Small -Exudate Type Serosanguineous Serosanguineous Serosanguineous -Wound Margin Distinct, Distinct, Thickened Outline Outline Attached Attached -Granulation Amt Small (1-33%) Large (67-100%) Small (1-33%) -Granulation Quality Bendena Red Bendena -Necrosis Amt Medium (34-66%) Small (1-33%) Large (67-100%) -Necrotic Tissue Type Adherent Slough Adherent Slough Adherent Slough -Texture (Tameka-wound Skin Appearance) Assessed Assessed, Assessed Localized Edema -Moisture (Tameka-wound Skin Appearance) Assessed Assessed Assessed -Color (Tameka-wound Skin Appearance) Assessed Assessed, Assessed Erythema -Temperature (Tameka-wound Skin No Abnormality No Abnormality Appearance) (Pt Warm) (Pt Warm) -Ulcer Cleansing Soap and Water Soap and Water Soap and Water -Foul Odor after Cleansing No No -Anesthetic Used 5% Lidocaine 5% Lidocaine 5% Lidocaine Gel Gel Gel Right Calf (cm) 36.5 35 Right Ankle (cm) 22 22.7 WC - Nurse 2 - General Ulcer CM Notes Start: 01/16/23 11:34 Freq: Status: Active Protocol: Activity Type Activity Date Activity User E-sign Co-sign Detail Recorded Client Recorded Date Recorded By Document 01/16/23 17:10 PL [id number] 01/16/23 17:12 PL Document 01/23/23 16:24 PL [id number] 01/23/23 16:26 PL 01/16/23 01/23/23 17:10 16:24 Wound Center Nurse 2 RT MED LOWER LEG -Time 12:03 11:18 -Correct Patient Yes Yes -Correct Side, Site, Position Yes Yes -Correct Procedure Yes Yes -Procedure Performed Yes Yes -Type of Procedure Debridement Debridement -Clinical Debridement Subcutaneous Subcutaneous -Tissue Removed Subcutaneous Subcutaneous -Post Debridement (cm) - Length 4.7 4.7 -Post Debridement (cm) - Width 2.2 1.7 -Post Debridement (cm) - Depth 0.2 0.2 -Total Square (Post) (cm) 10.34 7.99 -Area of Debridement (cm) - Length 4.7 4.7 -Area of Debridement (cm) - Width 2.2 1.7 -Total Square (Area) (cm) 10.34 7.99 -Tunneling No No -Undermining/Tunneling No No -Circular Undermining No No -Wound/Ulcer Outcome Not Healed Not Healed -Ulcer Cleansing Rinsed/ Rinsed/ Irrigated with Irrigated with Saline Saline -Foul Odor after Cleansing No No -Bioengineered Tissue Yes Yes -Type of Bioengineered Tissue Epifix Mesh Epifix -Expiration Date 09/08/27 09/08/27 -Product Lot Number [id number] -Percent Used 100 100 -Bleeding Controlled with Pressure Pressure -Treatment Response Procedure Procedure Tolerated Well Tolerated Well -Debridement - Subq, 1st 20sq cm No No -Apply Skin Sub - 1st 25 sq cm - Legs 1 1 -Epifix (per sq cm) 8 -Epifix Mesh (per sq cm) 11 Pain Scale: 0-10 Numeric Is Patient Pain Free? Yes Yes - Nurse 3 - General Ulcer D/C NN Start: 01/16/23 11:34 Freq: Status: Active Protocol: Activity Type Activity Date Activity User E-sign Co-sign Detail Recorded Client Recorded Date Recorded By Document 01/16/23 12:17 KW Desktop 01/16/23 12:18 KW Document 01/23/23 11:38 NRL Desktop 01/23/23 11:39 NRL Document 02/06/23 12:00 KW Desktop 02/06/23 12:00 KW 01/16/23 01/23/23 02/06/23 12:17 11:38 12:00 Wound Care Center Nurse 3 RT MED LOWER LEG -Ulcer Cleansing Rinsed/ Irrigated with Saline -Primary Dressing Covered/Secured with Dry Gauze & Dry Gauze & Dry Gauze & Roll Gauze, Roll Gauze Roll Gauze, Secured with Secured with Tape Tape Right -Tubular Bandage Single Layer Single Layer -Size of Tubigrip Used Size D Size D -Size D ($) 1 1 Pain Scale: 0-10 Numeric Is Patient Pain Free? Yes Yes Yes WC - Visit Discharge Discharge Condition Stable Stable Stable Ambulatory Status Ambulatory Ambulatory Ambulatory Transportation Private Auto Private Auto Private Auto Medication Reconcilliation completed & No Yes No provided to patient/care provider Clinical Summary of Care Provided Yes Yes Yes Assessment/Plan Assessment/Plan (1) Non-pressure chronic ulcer of right calf with fat layer exposed: CODE(S): L97.212 - Non-pressure chronic ulcer of right calf with fat layer exposed (2) Leg wound, right: CODE(S): S81.801A - Unspecified open wound, right lower leg, initial encounter PLAN: Plan Patient seen and evaluated Ulceration to the right lower extremity was debrided as noted in the clinical panel above. Proximal right lower extremity wound measures 2.8 cm x 1.8 cm x 0.2 cm in distal right lower extremity wound has healed. EpiFix graft #5 applied to the wound bed and dressed with Adaptic touch and anchored with Steri-Strips. Dressed with dry sterile dressing. They are instructed to change outer dressing as needed. He was instructed to not get the site wet. Wound demonstrates continued reduction in size versus previous visit. He was approved for advanced skin care product, EpiFix. We will continue application Discussed adequate protein intake for continued wound healing. He is to elevate lower extremity at times of rest to aid in any edema control. Discussed how this will improve wound healing. He is continuing daily exercise of walking a mile despite medical problems. States overall he feels good and would like to continue this. He would like to get back to running 5 miles a day which he was doing regularly prior to his fall. Discussed good supportive shoe gear today. Patient does wear ASIC shoes and are noted to be supportive. Discussed signs and symptoms of infection. Discussed if he notices any redness about the wound margin moving up the leg, purulent drainage from the site, increasing foul odor from the wound site, or if he experiences fever greater than 101 degree, nausea, vomiting, chills these are a sign of progressing infection and he should report to the ED. He and his both voiced understanding of this. The following work up and care recommendations were made: Dressing: EpiFix, Adaptic touch, Steri-Strips, dry sterile dressing. Change outer dressings as needed. Wash: Do not get wet Tissue growth optimization: EpiFix Offload: Ensure nothing bumps anterior right lower extremity. Keep dressing intact providing protection. Vascular: Palpable DP and PT pulses with adequate capillary fill time to the digits. Do not feel vascular status is impacting wound healing. Edema: There is some mild localized edema about the wound margins. Discussed elevation of lower extremities to aid in wound healing. Infection: No signs of infection. Pain: May take [id number] Tylenol for discomfort. Host factors: No current factors impacting healing. Patient otherwise healthy. I answered all the patient's questions. To return to the wound healing center in 1 week or call sooner if the patient has any questions or concerns.
== END 2023-02-06 23:59 | disposition home or self-care (01) ==
LOC: WC 11:00
PROVIDERS: PCP Family Medicine; Referring Provider Emergency Medicine; Visit Provider Student in an Organized Health Care Education/Training Program
DX: L97.212 Non-pressure chronic ulcer of right calf with fat layer exposed (principal); S22.49XD Multiple fractures of ribs, unspecified side, subsequent encounter for fracture with routine healing; Z86.73 Personal history of transient ischemic attack (TIA), and cerebral infarction without residual deficits; Z85.46 Personal history of malignant neoplasm of prostate
CPT/HCPCS: 15271; Q4186

== ENCOUNTER 2023-03-06 10:15 | Outpatient (RCR) | payer MEDICARE, SELFPAY ==
[2023-02-07 00:39] VITALS: BP 120/77; PULSE 90; RESP 18; TEMP 36.4; BMI 19.9
[2023-02-13 11:04] VITALS: BP 104/62; PULSE 83; RESP 18; TEMP 36.2; BMI 19.9
--- NOTE | 2023-02-13 12:07 | PCM.WC.PN ---
History of Present Illness Date of Service: 02/13/23 Chief Complaint: Right lower extremity wound History of Wound: Patient is a 72-year-old male who presents to the wound care center for nonhealing left lower extremity wound. He has PMHx of stroke, prostate cancer, PE, subarachnoid hemorrhage. Patient states that 3 weeks ago he was standing on a step ladder painting the outside of the house and lost balance falling onto some gravel rocks. He presented to the [facility] ED on 11/30/2022 with laceration to scalp and right lower extremity. Lacerations repaired with 2 munira placed into the head laceration and eleven 4-0 nylon simple interrupted sutures placed into the right lower extremity with central defect secondary to loss of skin coverage. During fall he also suffered for rib fractures and ultimately developed pneumothorax and was admitted to the [facility]. He did have chest tube placed which has been pulled and healing well. They state they have been keeping the wound clean and dry to the right lower extremity however wound has failed to progress in healing with eschar noted to the wound bed. He denies being diabetic. Denies constitutional symptoms. Denies further complaints. Subjective Subjective This is a 72-year-old male who presents to the wound care center today for follow-up of right lower extremity ulceration secondary to fall. He is changing outer dressings as needed. He remains active with daily walking. States overall feels better and that wound is improving. Denies any constitutional symptoms. Denies further complaints. Objective Data Objective Data Vital Signs: Vital Signs Temp Pulse Resp BP O2 Del Method 97.2 F L 83 18 104/62 Room Air 02/13/23 11:04 02/13/23 11:04 02/13/23 11:04 02/13/23 11:04 02/13/23 11:04 Oxygen Delivery Method Room Air Weight: 63.049 kg Body Mass Index (BMI) 19.9 Physical Exam Const alert, oriented x3 and no apparent distress General Appearance: cooperative HEENT normocephalic Eyes General Eye: normal appearance of both eyes Neck General: normal visual inspection Lymph Lymphatic: no lymphadenopathy noted and no lymphedema noted Resp normal respiratory effort Cardio regular rate and regular rhythm Extremity normal capillary refill, no joint enlargement, no calf tenderness and no pedal edema Extremity Narrative: Vascular: DP and PT pulses palpable bilateral. Capillary fill time less than 5 seconds to the digits bilateral. No pedal edema, no lymphadenopathy, no lymphangitic streaking. Negative Homans' sign, negative Tijerina sign to right lower extremity. Dermatological: Traumatic ulceration noted to the right anterior and lateral lower extremity with granular wound bed. No erythema, no purulent drainage, no malodor, no palpable fluctuance/bogginess noted, no visible abscess formation, no lymphangitic streaking, no other signs of infection. Musculoskeletal: Muscle strength 5 of 5 age-appropriate. Decreased range of motion of the ankle joint in dorsiflexion with the knee extended without pain or crepitus bilateral. Enlarged palpable styloid process fifth metatarsal base left foot. No pain to palpation to bones of foot or ankle bilateral. Skin no rashes or lesions noted, skin turgor normal and no jaundice Neuro moves all extremities Debridement Note Debridement Note Wound debrided: Right lower extremity Laterality: Right Wound Grade/Stage: Mendez stage I Type of Debridement: Excisional debridement Anesthesia Used: 5% Lidocaine Gel Depth: Down to and including healthy tissue and in the subcutaneous layer Percentage of wound debrided: 100 Instrument Used: 5mm curette Tissue Removed: Fibrous, devitalized subcutaneous, biofilm, slough Severity: Fat Layer Exposed Amount of bleeding with debridement: Mild Bleeding Controlled with: Compression and gauze Patient tolerated procedure: Patient tolerated procedure well Post-Debridement Measurements and Additional Note: Post-Debridement Measurements/Treatment - Nurse 1 - General Ulcer Assessment Start: 02/13/23 11:04 Freq: Status: Active Protocol: [email or web address] Activity Type Activity Date Activity User E-sign Co-sign Detail Recorded Client Recorded Date Recorded By Document 02/13/23 11:04 Desktop 02/13/23 11:06 02/13/23 11:04 - Today's Visit Information Type of service 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 ) Arrival Mode Ambulatory Patient Identification Verified (Name & Yes ) Height and Weight Body Mass Index (BMI) 19.9 BMI Classification Normal Vital Signs Temperature (97.8 F-99.1 F) 97.2 F L Temperature Source Temporal Pulse Rate (60-100) 83 Pulse Location Monitor Respiratory Rate (12-18) 18 Respiratory rate source Observation Oxygen Delivery Method Room Air Blood Pressure (90/60-120/80) 104/62 Blood Pressure Mean (mm Hg) 76 Source Monitor Position Semi-Fowlers Blood Pressure Location Left Arm History Since Last Visit- (Skip if this is Patient's initial visit) Have you changed medications since your No last visit? Any new allergies or adverse reactions No Had a fall/change in ADL's that may No increase risk of falls Signs or symptoms of abuse and/or No neglect since last visit Have you been in the hospital since your No last visit? Has dressing in place as prescribed Yes Has compression in place as prescribed Yes Has offloadiing in place as prescribed No Experienced any changes in pain level or No management Left Footwear Regular Shoe Right Footwear Regular Shoe Pain Scale: 0-10 Numeric Is Patient Pain Free? Yes WC - Nurse 1 - General Ulcer Measurement Start: 02/13/23 11:04 Freq: Status: Active Protocol: Activity Type Activity Date Activity User E-sign Co-sign Detail Recorded Client Recorded Date Recorded By Document 02/13/23 11:04 Desktop 02/13/23 11:06 02/13/23 11:04 Wound Center Nurse 1 RT MED LOWER LEG -Current Size (cm) - Length 3 -Current Size (cm) - Width 2 -Current Size (cm) - Depth 0.1 -Total Square Cm 6 -Exudate Amt Medium -Exudate Type Serosanguineous -Wound Margin Distinct, Outline Attached -Granulation Quality Red -Necrosis Amt Small (1-33%) -Necrotic Tissue Type Adherent Slough -Texture (Tameka-wound Skin Appearance) Assessed -Moisture (Tameka-wound Skin Appearance) Assessed -Color (Tameka-wound Skin Appearance) Assessed -Temperature (Tameka-wound Skin No Abnormality Appearance) (Pt Warm) -Ulcer Cleansing Soap and Water -Anesthetic Used 5% Lidocaine Gel Right Calf (cm) 34.2 Right Ankle (cm) 21.8 WC - Nurse 3 - General Ulcer D/C NN Start: 02/13/23 11:04 Freq: Status: Active Protocol: Activity Type Activity Date Activity User E-sign Co-sign Detail Recorded Client Recorded Date Recorded By Document 02/13/23 11:53 Desktop 02/13/23 11:54 02/13/23 11:53 Wound Care Center Nurse 3 RT MED LOWER LEG -Ulcer Cleansing Not Cleansed -Foul Odor after Cleansing No -Primary Dressing Covered/Secured with Dry Gauze,Dry Gauze & Roll Gauze,Secured with Tape Right -Lotion applied to leg before No compression wrap -Tubular Bandage Single Layer -Size of Tubigrip Used Size C -Size C ($) 1 Pain Scale: 0-10 Numeric Is Patient Pain Free? Yes Teaching: Wound Center Compression -Person Taught Patient -Teaching Method Discussion -Response to teaching Verbalize understanding WC - Visit Discharge Discharge Condition Stable Ambulatory Status Ambulatory Transportation Private Auto Assessment/Plan Assessment/Plan (1) Non-pressure chronic ulcer of right calf with fat layer exposed: CODE(S): L97.212 - Non-pressure chronic ulcer of right calf with fat layer exposed (2) Leg wound, right: CODE(S): S81.801A - Unspecified open wound, right lower leg, initial encounter PLAN: Plan Patient seen and evaluated Ulceration to the right lower extremity was debrided as noted in the clinical panel above. Proximal right lower extremity wound measures 2.4 cm x 1.2 cm x 0.1 cm in distal right lower extremity wound has healed. EpiFix graft #6 applied to the wound bed and dressed with Adaptic touch and anchored with Steri-Strips. Dressed with dry sterile dressing. They are instructed to change outer dressing as needed. He was instructed to not get the site wet. Wound demonstrates continued reduction in size versus previous visit. He was approved for advanced skin care product, EpiFix. We will continue application Discussed adequate protein intake for continued wound healing. He is to elevate lower extremity at times of rest to aid in any edema control. Discussed how this will improve wound healing. He is continuing daily exercise of walking a mile despite medical problems. States overall he feels good and would like to continue this. He would like to get back to running 5 miles a day which he was doing regularly prior to his fall. Discussed good supportive shoe gear today. Patient does wear ASIC shoes and are noted to be supportive. Discussed signs and symptoms of infection. Discussed if he notices any redness about the wound margin moving up the leg, purulent drainage from the site, increasing foul odor from the wound site, or if he experiences fever greater than 101 degree, nausea, vomiting, chills these are a sign of progressing infection and he should report to the ED. He and his both voiced understanding of this. The following work up and care recommendations were made: Dressing: EpiFix, Adaptic touch, Steri-Strips, dry sterile dressing. Change outer dressings as needed. Wash: Do not get wet Tissue growth optimization: EpiFix Offload: Ensure nothing bumps anterior right lower extremity. Keep dressing intact providing protection. Vascular: Palpable DP and PT pulses with adequate capillary fill time to the digits. Do not feel vascular status is impacting wound healing. Edema: There is some mild localized edema about the wound margins. Discussed elevation of lower extremities to aid in wound healing. Infection: No signs of infection. Pain: May take [id number] Tylenol for discomfort. Host factors: No current factors impacting healing. Patient otherwise healthy. I answered all the patient's questions. To return to the wound healing center in 1 week or call sooner if the patient has any questions or concerns.
[2023-02-20 11:07] VITALS: BP 109/69; PULSE 82; RESP 18; TEMP 36.5; BMI 19.9
--- NOTE | 2023-02-20 12:39 | PN.PCM_ITS ---
History of Present Illness Date of Service: 02/20/23 Chief Complaint: Right lower extremity wound History of Wound: Patient is a 72-year-old male who presents to the wound care center for nonhealing left lower extremity wound. He has PMHx of stroke, prostate cancer, PE, subarachnoid hemorrhage. Patient states that 3 weeks ago he was standing on a step ladder painting the outside of the house and lost balance falling onto some gravel rocks. He presented to the [facility] ED on 11/30/2022 with laceration to scalp and right lower extremity. Lacerations repaired with 2 munira placed into the head laceration and eleven 4-0 nylon simple interrupted sutures placed into the right lower extremity with central defect secondary to loss of skin coverage. During fall he also suffered for rib fractures and ultimately developed pneumothorax and was admitted to the [facility]. He did have chest tube placed which has been pulled and healing well. They state they have been keeping the wound clean and dry to the right lower extremity however wound has failed to progress in healing with eschar noted to the wound bed. He denies being diabetic. Denies constitutional symptoms. Denies further complaints. Subjective Subjective This is a 72-year-old male who presents to the wound care center today for follow-up of right lower extremity ulceration secondary to fall. He is changing outer dressings as needed. He remains active with daily walking. States he can see the wound getting smaller each visit. Denies any constitutional symptoms. Denies further complaints. Objective Data Objective Data Vital Signs: Vital Signs Temp Pulse Resp BP O2 Del Method 97.7 F L 82 18 109/69 Room Air 02/20/23 11:07 02/20/23 11:07 02/20/23 11:07 02/20/23 11:07 02/20/23 11:07 Oxygen Delivery Method Room Air Weight: 63.049 kg Body Mass Index (BMI) 19.9 Physical Exam Const alert, oriented x3 and no apparent distress General Appearance: cooperative HEENT normocephalic Eyes General Eye: normal appearance of both eyes Neck General: normal visual inspection Lymph Lymphatic: no lymphadenopathy noted and no lymphedema noted Resp normal respiratory effort Cardio regular rate and regular rhythm Extremity normal capillary refill, no joint enlargement, no calf tenderness and no pedal edema Extremity Narrative: Vascular: DP and PT pulses palpable bilateral. Capillary fill time less than 5 seconds to the digits bilateral. No pedal edema, no lymphadenopathy, no lymphangitic streaking. Negative Homans' sign, negative Tijerina sign to right lower extremity. Dermatological: Traumatic ulceration noted to the right anterior and lateral lower extremity with granular wound bed. No erythema, no purulent drainage, no malodor, no palpable fluctuance/bogginess noted, no visible abscess formation, no lymphangitic streaking, no other signs of infection. Musculoskeletal: Muscle strength 5 of 5 age-appropriate. Decreased range of motion of the ankle joint in dorsiflexion with the knee extended without pain or crepitus bilateral. Enlarged palpable styloid process fifth metatarsal base left foot. No pain to palpation to bones of foot or ankle bilateral. Skin no rashes or lesions noted, skin turgor normal and no jaundice Neuro moves all extremities Debridement Note Debridement Note Wound debrided: Right lower extremity Laterality: Right Wound Grade/Stage: Mendez stage I Type of Debridement: Excisional debridement Anesthesia Used: 5% Lidocaine Gel Depth: Down to and including healthy tissue and in the subcutaneous layer Percentage of wound debrided: 100 Instrument Used: 5mm curette Tissue Removed: Fibrous, devitalized subcutaneous, biofilm, slough Severity: Fat Layer Exposed Amount of bleeding with debridement: Mild Bleeding Controlled with: Compression and gauze Patient tolerated procedure: Patient tolerated procedure well Post-Debridement Measurements and Additional Note: Post-Debridement Measurements/Treatment - Nurse 1 - General Ulcer Assessment Start: 02/13/23 11:04 Freq: Status: Active Protocol: HALEY.LOWEXT Activity Type Activity Date Activity User E-sign Co-sign Detail Recorded Client Recorded Date Recorded By Document 02/13/23 11:04 [email or web address] 02/13/23 11:06 Document 02/20/23 11:07 Desktop 02/20/23 11:16 KW 02/13/23 02/20/23 11:04 11:07 - Today's Visit Information Type of service Follow-up Visit Follow-up Visit (Physician/AUTOMATION CONTROLS ENGINEER (Physician/AUTOMATION CONTROLS ENGINEER ) ) Arrival Mode Ambulatory Ambulatory Patient Identification Verified (Name & Yes Yes ) Height and Weight Body Mass Index (BMI) 19.9 19.9 BMI Classification Normal Normal Vital Signs Temperature (97.8 F-99.1 F) 97.2 F L 97.7 F L Temperature Source Temporal Temporal Pulse Rate (60-100) 83 82 Pulse Location Monitor Monitor Respiratory Rate (12-18) 18 18 Respiratory rate source Observation Observation Oxygen Delivery Method Room Air Room Air Blood Pressure (90/60-120/80) 104/62 109/69 Blood Pressure Mean (mm Hg) 76 82 Source Monitor Monitor Position Semi-Fowlers Semi-Fowlers Blood Pressure Location Left Arm Left Arm History Since Last Visit- (Skip if this is Patient's initial visit) Have you changed medications since your No No last visit? Any new allergies or adverse reactions No No Had a fall/change in ADL's that may No No increase risk of falls Signs or symptoms of abuse and/or No No neglect since last visit Have you been in the hospital since your No No last visit? Has dressing in place as prescribed Yes Yes Has compression in place as prescribed Yes Yes Has offloadiing in place as prescribed No No Experienced any changes in pain level or No No management Left Footwear Regular Shoe Regular Shoe Right Footwear Regular Shoe Regular Shoe Pain Scale: 0-10 Numeric Is Patient Pain Free? Yes Yes WC - Nurse 1 - General Ulcer Measurement Start: 02/13/23 11:04 Freq: Status: Active Protocol: Activity Type Activity Date Activity User E-sign Co-sign Detail Recorded Client Recorded Date Recorded By Document 02/13/23 11:04 [email or web address]ktop 02/13/23 11:06 GM Document 02/20/23 11:07 KW Desktop 02/20/23 11:16 KW 02/13/23 02/20/23 11:04 11:07 Wound Center Nurse 1 RT MED LOWER LEG -Current Size (cm) - Length 3 1.8 -Current Size (cm) - Width 2 1.2 -Current Size (cm) - Depth 0.1 0.1 -Total Square Cm 6 2.16 -Exudate Amt Medium Small -Exudate Type Serosanguineous Serosanguineous -Wound Margin Distinct, Distinct, Outline Outline Attached Attached -Granulation Amt Large (67-100%) -Granulation Quality [place] -Necrosis Amt Small (1-33%) Small (1-33%) -Necrotic Tissue Type Adherent Slough Adherent Slough -Texture (Tameka-wound Skin Appearance) Assessed Assessed -Moisture (Tameka-wound Skin Appearance) Assessed Assessed,Dry/ Scaly -Color (Tameka-wound Skin Appearance) Assessed Assessed -Temperature (Tameka-wound Skin No Abnormality No Abnormality Appearance) (Pt Warm) (Pt Warm) -Ulcer Cleansing Soap and Water Soap and Water -Anesthetic Used 5% Lidocaine 5% Lidocaine Gel Gel Right Calf (cm) 34.2 Right Ankle (cm) 21.8 Left Calf (cm) 35 Left Ankle (cm) 22.5 WC - Nurse 2 - General Ulcer CM Notes Start: 02/13/23 11:04 Freq: Status: Active Protocol: Activity Type Activity Date Activity User E-sign Co-sign Detail Recorded Client Recorded Date Recorded By Document 02/13/23 12:37 PL [id number] 02/13/23 12:39 PL 02/13/23 12:37 Wound Center Nurse 2 RT MED LOWER LEG -Time 11:37 -Correct Patient Yes -Correct Side, Site, Position Yes -Correct Procedure Yes -Procedure Performed Yes -Type of Procedure Debridement -Clinical Debridement Subcutaneous -Tissue Removed Subcutaneous -Post Debridement (cm) - Length 2.4 -Post Debridement (cm) - Width 1.2 -Post Debridement (cm) - Depth 0.1 -Total Square (Post) (cm) 2.88 -Area of Debridement (cm) - Length 2.4 -Area of Debridement (cm) - Width 1.2 -Total Square (Area) (cm) 2.88 -Tunneling No -Undermining/Tunneling No -Circular Undermining No -Wound/Ulcer Outcome Not Healed -Ulcer Cleansing Rinsed/ Irrigated with Saline -Foul Odor after Cleansing No -Bioengineered Tissue Yes -Type of Bioengineered Tissue Epifix -Expiration Date 09/08/27 -Product Lot Number [id number] -Percent Used 100 -Bleeding Controlled with Pressure -Treatment Response Procedure Tolerated Well -Debridement - Subq, 1st 20sq cm No -Apply Skin Sub - 1st 25 sq cm - Legs 1 -Epifix (per sq cm) 4 Pain Scale: 0-10 Numeric Is Patient Pain Free? Yes WC - Nurse 3 - General Ulcer D/C NN Start: 02/13/23 11:04 Freq: Status: Active Protocol: Activity Type Activity Date Activity User E-sign Co-sign Detail Recorded Client Recorded Date Recorded By Document 02/13/23 11:53 GM Desktop 02/13/23 11:54 GM Document 02/20/23 12:02 DL [id number] 02/20/23 12:03 DL 02/13/23 02/20/23 11:53 12:02 Wound Care Center Nurse 3 RT MED LOWER LEG -Ulcer Cleansing Not Cleansed Not Cleansed -Foul Odor after Cleansing No -Other Dressing Epi -Primary Dressing Covered/Secured with Dry Gauze,Dry Dry Gauze, Gauze & Roll Secured with Gauze,Secured Tape with Tape Right -Lotion applied to leg before No compression wrap -Tubular Bandage Single Layer Single Layer -Size of Tubigrip Used Size C Size C -Size C ($) 1 1 Treatment Response Procedure Tolerated Well Pain Scale: 0-10 Numeric Is Patient Pain Free? Yes Yes Teaching: Wound Center Compression -Person Taught Patient -Teaching Method Discussion -Response to teaching Verbalize understanding WC - Visit Discharge Discharge Condition Stable Stable Ambulatory Status Ambulatory Ambulatory Transportation Private Auto Private Auto Assessment/Plan Assessment/Plan (1) Non-pressure chronic ulcer of right calf with fat layer exposed: CODE(S): L97.212 - Non-pressure chronic ulcer of right calf with fat layer exposed (2) Leg wound, right: CODE(S): S81.801A - Unspecified open wound, right lower leg, initial encounter PLAN: Plan Patient seen and evaluated Ulceration to the right lower extremity was debrided as noted in the clinical panel above. Proximal right lower extremity wound measures 1.8 cm x 1.1 cm x 0.1 cm in distal right lower extremity wound has healed. EpiFix graft #7 applied to the wound bed and dressed with Adaptic touch and anchored with Steri- Strips. Dressed with dry sterile dressing. They are instructed to change outer dressing as needed. He was instructed to not get the site wet. Wound demonstrates continued reduction in size versus previous visit. He was approved for advanced skin care product, EpiFix. We will continue application Discussed adequate protein intake for continued wound healing. He is to elevate lower extremity at times of rest to aid in any edema control. Discussed how this will improve wound healing. He is continuing daily exercise of walking a mile despite medical problems. States overall he feels good and would like to continue this. He would like to get back to running 5 miles a day which he was doing regularly prior to his fa ll. Currently walking 2 miles daily. Discussed good supportive shoe gear today. Patient does wear ASIC shoes and are noted to be supportive. Discussed signs and symptoms of infection. Discussed if he notices any redness about the wound margin moving up the leg, purulent drainage from the site, increasing foul odor from the wound site, or if he experiences fever greater than 101 degree, nausea, vomiting, chills these are a sign of progressing infection and he should report to the ED. He and his both voiced understanding of this. The following work up and care recommendations were made: Dressing: EpiFix, Adaptic touch, Steri-Strips, dry sterile dressing. Change outer dressings as needed. Wash: Do not get wet Tissue growth optimization: EpiFix Offload: Ensure nothing bumps anterior right lower extremity. Keep dressing intact providing protection. Vascular: Palpable DP and PT pulses with adequate capillary fill time to the digits. Do not feel vascular status is impacting wound healing. Edema: There is some mild localized edema about the wound margins. Discussed elevation of lower extremities to aid in wound healing. Infection: No signs of infection. Pain: May take [id number] Tylenol for discomfort. Host factors: No current factors impacting healing. Patient otherwise healthy. I answered all the patient's questions. To return to the wound healing center in 2 weeks or call sooner if the patient has any questions or concerns.
[2023-03-06 10:26] VITALS: BP 115/72; PULSE 84; RESP 18; BMI 19.9
--- NOTE | 2023-03-06 13:48 | PN.PCM_ITS ---
History of Present Illness Date of Service: 03/06/23 Chief Complaint: Right lower extremity wound History of Wound: Patient is a 72-year-old male who presents to the wound care center for nonhealing left lower extremity wound. He has PMHx of stroke, prostate cancer, PE, subarachnoid hemorrhage. Patient states that 3 weeks ago he was standing on a step ladder painting the outside of the house and lost balance falling onto some gravel rocks. He presented to the [facility] ED on 11/30/2022 with laceration to scalp and right lower extremity. Lacerations repaired with 2 munira placed into the head laceration and eleven 4-0 nylon simple interrupted sutures placed into the right lower extremity with central defect secondary to loss of skin coverage. During fall he also suffered for rib fractures and ultimately developed pneumothorax and was admitted to the [facility]. He did have chest tube placed which has been pulled and healing well. They state they have been keeping the wound clean and dry to the right lower extremity however wound has failed to progress in healing with eschar noted to the wound bed. He denies being diabetic. Denies constitutional symptoms. Denies further complaints. Subjective Subjective This is a 72-year-old male who presents to the wound care center today for follow-up of right lower extremity ulceration secondary to fall. He is changing outer dressings as needed. He remains active with daily walking. States he can see the wound getting smaller each visit. Did have recent fall and has abrasion to abdomen and hands. Denies any constitutional symptoms. Denies further complaints. Objective Data Objective Data Vital Signs: Vital Signs Temp Pulse Resp BP O2 Del Method 97.7 F L 84 18 115/72 Room Air 02/20/23 11:07 03/06/23 10:26 03/06/23 10:26 03/06/23 10:26 03/06/23 10:26 Oxygen Delivery Method Room Air Weight: 63.049 kg Body Mass Index (BMI) 19.9 Physical Exam Const alert, oriented x3 and no apparent distress General Appearance: cooperative HEENT normocephalic Eyes General Eye: normal appearance of both eyes Neck General: normal visual inspection Lymph Lymphatic: no lymphadenopathy noted and no lymphedema noted Resp normal respiratory effort Cardio regular rate and regular rhythm Extremity normal capillary refill, no joint enlargement, no calf tenderness and no pedal edema Extremity Narrative: Vascular: DP and PT pulses palpable bilateral. Capillary fill time less than 5 seconds to the digits bilateral. No pedal edema, no lymphadenopathy, no lymphangitic streaking. Negative Homans' sign, negative Tijerina sign to right lower extremity. Dermatological: Traumatic ulceration noted to the right anterior and lateral low er extremity with granular wound bed. No erythema, no purulent drainage, no malodor, no palpable fluctuance/bogginess noted, no visible abscess formation, no lymphangitic streaking, no other signs of infection. Musculoskeletal: Muscle strength 5 of 5 age-appropriate. Decreased range of motion of the ankle joint in dorsiflexion with the knee extended without pain or crepitus bilateral. Enlarged palpable styloid process fifth metatarsal base left foot. No pain to palpation to bones of foot or ankle bilateral. Skin no rashes or lesions noted, skin turgor normal and no jaundice Neuro moves all extremities Debridement Note Debridement Note Wound debrided: Right lower extremity Laterality: Right Wound Grade/Stage: Stage I Type of Debridement: Excisional debridement Anesthesia Used: 5% Lidocaine Gel Depth: Down to and including healthy tissue and in the subcutaneous layer Percentage of wound debrided: 100 Instrument Used: 5mm curette Tissue Removed: Fibrous, devitalized subcutaneous, biofilm, slough Severity: Fat Layer Exposed Amount of bleeding with debridement: Mild Bleeding Controlled with: Compression and gauze Patient tolerated procedure: Patient tolerated procedure well Post-Debridement Measurements and Additional Note: Post-Debridement Measurements/Treatment - Nurse 1 - General Ulcer Assessment Start: 02/13/23 11:04 Freq: Status: Active Protocol: .JOANNE Activity Type Activity Date Activity User E-sign Co-sign Detail Recorded Client Recorded Date Recorded By Document 02/13/23 11:04 Desktop 02/13/23 11:06 Document 02/20/23 11:07 KW Desktop 02/20/23 11:16 KW Document 03/06/23 10:26 KW Desktop 03/06/23 10:38 KW 02/13/23 02/20/23 03/06/23 11:04 11:07 10:26 - Today's Visit Information Type of service Follow-up Visit Follow-up Visit Follow-up Visit (Physician/CONSTRUCTION PROJECT MANAGER (Physician/CONSTRUCTION PROJECT MANAGER (Physician/CONSTRUCTION PROJECT MANAGER ) ) ) Arrival Mode Ambulatory Ambulatory Ambulatory Patient Identification Verified (Name & Yes Yes Yes ) Height and Weight Body Mass Index (BMI) 19.9 19.9 19.9 BMI Classification Normal Normal Normal Vital Signs Temperature (97.8 F-99.1 F) 97.2 F L 97.7 F L Temperature Source Temporal Temporal Pulse Rate (60-100) 83 82 84 Pulse Location Monitor Monitor Monitor Respiratory Rate (12-18) 18 18 18 Respiratory rate source Observation Observation Observation Oxygen Delivery Method Room Air Room Air Room Air Blood Pressure (90/60-120/80) 104/62 109/69 115/72 Blood Pressure Mean (mm Hg) 76 82 86 Source Monitor Monitor Monitor Position Semi-Fowlers Semi-Fowlers Sitting Blood Pressure Location Left Arm Left Arm Left Arm History Since Last Visit- (Skip if this is Patient's initial visit) Have you changed medications since your No No No last visit? Any new allergies or adverse reactions No No No Had a fall/change in ADL's that may No No No increase risk of falls Signs or symptoms of abuse and/or No No No neglect since last visit Have you been in the hospital since your No No No last visit? Has dressing in place as prescribed Yes Yes Yes Has compression in place as prescribed Yes Yes Yes Has offloadiing in place as prescribed No No No Experienced any changes in pain level or No No No management Left Footwear Regular Shoe Regular Shoe Regular Shoe Right Footwear Regular Shoe Regular Shoe Regular Shoe Pain Scale: 0-10 Numeric Is Patient Pain Free? Yes Yes Yes WC - Nurse 1 - General Ulcer Measurement Start: 02/13/23 11:04 Freq: Status: Active Protocol: Activity Type Activity Date Activity User E-sign Co-sign Detail Recorded Client Recorded Date Recorded By Document 02/13/23 11:04 Desktop 02/13/23 11:06 GM Document 02/20/23 11:07 KW Desktop 02/20/23 11:16 KW Document 03/06/23 10:26 KW Desktop 03/06/23 10:38 KW 02/13/23 02/20/23 03/06/23 11:04 11:07 10:26 Wound Center Nurse 1 RT MED LOWER LEG -Current Size (cm) - Length 3 1.8 0.4 -Current Size (cm) - Width 2 1.2 0.5 -Current Size (cm) - Depth 0.1 0.1 0.1 -Total Square Cm 6 2.16 0.20 -Exudate Amt Medium Small Small -Exudate Type Serosanguineous Serosanguineous Serosanguineous -Wound Margin Distinct, Distinct, Distinct, Outline Outline Outline Attached Attached Attached -Granulation Amt Large (67-100%) Large (67-100%) -Granulation Quality Red [place] Ash Red -Necrosis Amt Small (1-33%) Small (1-33%) -Necrotic Tissue Type Adherent Slough Adherent Slough -Texture (Tameka-wound Skin Appearance) Assessed Assessed Assessed -Moisture (Tameka-wound Skin Appearance) Assessed Assessed,Dry/ Assessed Scaly -Color (Tameka-wound Skin Appearance) Assessed Assessed Assessed -Temperature (Tameka-wound Skin No Abnormality No Abnormality Appearance) (Pt Warm) (Pt Warm) -Ulcer Cleansing Soap and Water Soap and Water Soap and Water -Anesthetic Used 5% Lidocaine 5% Lidocaine 5% Lidocaine Gel Gel Gel Right Calf (cm) 34.2 34.5 Right Ankle (cm) 21.8 21 Left Calf (cm) 35 Left Ankle (cm) 22.5 WC - Nurse 2 - General Ulcer CM Notes Start: 02/13/23 11:04 Freq: Status: Active Protocol: Activity Type Activity Date Activity User E-sign Co-sign Detail Recorded Client Recorded Date Recorded By Document 02/13/23 12:37 PL [id number] 02/13/23 12:39 PL Document 02/20/23 17:00 PL [id number] 02/20/23 17:02 PL Edit Result 02/20/23 17:00 PL (1) [id number] 02/21/23 07:13 PL Document 03/06/23 12:50 PL [id number] 03/06/23 12:54 PL (1) RT MED LOWER LEG - Dermabond => 1 02/13/23 02/20/23 03/06/23 12:37 17:00 12:50 Wound Center Nurse 2 RT MED LOWER LEG -Time 11:37 11:45 10:47 -Correct Patient Yes Yes Yes -Correct Side, Site, Position Yes Yes Yes -Correct Procedure Yes Yes Yes -Procedure Performed Yes Yes Yes -Type of Procedure Debridement Debridement Debridement -Clinical Debridement Subcutaneous Subcutaneous Subcutaneous -Tissue Removed Subcutaneous Subcutaneous Subcutaneous -Post Debridement (cm) - Length 2.4 1.8 1.0 -Post Debridement (cm) - Width 1.2 1.1 0.6 -Post Debridement (cm) - Depth 0.1 0.1 0.1 -Total Square (Post) (cm) 2.88 1.98 0.60 -Area of Debridement (cm) - Length 2.4 1.8 1.0 -Area of Debridement (cm) - Width 1.2 1.1 0.6 -Total Square (Area) (cm) 2.88 1.98 0.60 -Tunneling No No No -Undermining/Tunneling No No No -Circular Undermining No No No -Wound/Ulcer Outcome Not Healed Not Healed Not Healed -Ulcer Cleansing Rinsed/ Rinsed/ Rinsed/ Irrigated with Irrigated with Irrigated with Saline Saline Saline -Foul Odor after Cleansing No No No -Bioengineered Tissue Yes Yes Yes -Type of Bioengineered Tissue Epifix Epifix 18mm Epifix 18mm Disc Disc -Expiration Date 09/08/27 10/09/27 11/09/27 -Product Lot Number [id number] -Percent Used 100 100 100 -Bleeding Controlled with Pressure Pressure Pressure -Treatment Response Procedure Procedure Procedure Tolerated Well Tolerated Well Tolerated Well -Debridement - Subq, 1st 20sq cm No No No -Apply Skin Sub - 1st 25 sq cm - Legs 1 1 1 -Dermabond 1 -Epifix (per sq cm) 4 -Epifix 18mm Disc 3 3 Pain Scale: 0-10 Numeric Is Patient Pain Free? Yes Yes Yes WC - Nurse 3 - General Ulcer D/C NN Start: 02/13/23 11:04 Freq: Status: Active Protocol: Activity Type Activity Date Activity User E-sign Co-sign Detail Recorded Client Recorded Date Recorded By Document 02/13/23 11:53 GM Desktop 02/13/23 11:54 GM Document 02/20/23 12:02 DL [id number] 02/20/23 12:03 DL Document 03/06/23 11:11 KW Desktop 03/06/23 11:11 KW 02/13/23 02/20/23 03/06/23 11:53 12:02 11:11 Wound Care Center Nurse 3 RT MED LOWER LEG -Ulcer Cleansing Not Cleansed Not Cleansed -Foul Odor after Cleansing No -Other Dressing Epi -Primary Dressing Covered/Secured with Dry Gauze,Dry Dry Gauze, Dry Gauze & Gauze & Roll Secured with Roll Gauze, Gauze,Secured Tape Secured with with Tape Tape Right -Lotion applied to leg before No compression wrap -Tubular Bandage Single Layer Single Layer -Size of Tubigrip Used Size C Size C -Size C ($) 1 1 Treatment Response Procedure Tolerated Well Pain Scale: 0-10 Numeric Is Patient Pain Free? Yes Yes Yes Teaching: Wound Center Compression -Person Taught Patient -Teaching Method Discussion -Response to teaching Verbalize understanding WC - Visit Discharge Discharge Condition Stable Stable Stable Ambulatory Status Ambulatory Ambulatory Ambulatory Transportation Private Auto Private Auto Private Auto Medication Reconcilliation completed & No provided to patient/care provider Clinical Summary of Care Provided Yes Assessment/Plan Assessment/Plan (1) Non-pressure chronic ulcer of right calf with fat layer exposed: CODE(S): L97.212 - Non-pressure chronic ulcer of right calf with fat layer exposed (2) Leg wound, right: CODE(S): S81.801A - Unspecified open wound, right lower leg, initial encounter PLAN: Plan Patient seen and evaluated Ulceration to the right lower extremity was debrided as noted in the clinical panel above. Proximal right lower extremity wound measures 1.0 cm x 0.6 cm x 0.1 cm in distal right lower extremity wound has healed. EpiFix graft #8 applied to the wound bed and dressed with Adaptic touch and anchored with Steri- Strips. Dressed with dry sterile dressing. They are instructed to change outer dressing as needed. He was instructed to not get the site wet. Wound demonstrates continued reduction in size versus previous visit. He was approved for advanced skin care product, EpiFix. We will continue application Discussed adequate protein intake for continued wound healing. He is to elevate lower extremity at times of rest to aid in any edema control. Discussed how this will improve wound healing. He is continuing daily exercise of walking a mile despite medical problems. States overall he feels good and would like to continue this. He would like to get back to running 5 miles a day which he was doing regularly prior to his fall. Currently walking 2 miles daily. Discussed good supportive shoe gear today. Patient does wear ASIC shoes and are noted to be supportive. Discussed signs and symptoms of infection. Discussed if he notices any redness about the wound margin moving up the leg, purulent drainage from the site, increasing foul odor from the wound site, or if he experiences fever greater than 101 degree, nausea, vomiting, chills these are a sign of progressing infection and he should report to the ED. He and his both voiced understanding of this. The following work up and care recommendations were made: Dressing: EpiFix, Adaptic touch, Steri-Strips, dry sterile dressing. Change outer dressings as needed. Wash: Do not get wet Tissue growth optimization: EpiFix Offload: Ensure nothing bumps anterior right lower extremity. Keep dressing intact providing protection. Vascular: Palpable DP and PT pulses with adequate capillary fill time to the digits. Do not feel vascular status is impacting wound healing. Edema: There is some mild localized edema about the wound margins. Discussed elevation of lower extremities to aid in wound healing. Infection: No signs of infection. Pain: May take [id number] Tylenol for discomfort. Host factors: No current factors impacting healing. Patient otherwise healthy. I answered all the patient's questions. To return to the wound healing center in 1 week or call sooner if the patient has any questions or concerns.
== END 2023-03-09 23:59 | disposition home or self-care (01) ==
LOC: WC 10:15
PROVIDERS: PCP Family Medicine; Referring Provider Emergency Medicine; Visit Provider Student in an Organized Health Care Education/Training Program
DX: L97.212 Non-pressure chronic ulcer of right calf with fat layer exposed (principal); S60.511D Abrasion of right hand, subsequent encounter; S60.512D Abrasion of left hand, subsequent encounter; S81.801D Unspecified open wound, right lower leg, subsequent encounter; Z86.73 Personal history of transient ischemic attack (TIA), and cerebral infarction without residual deficits; Z86.711 Personal history of pulmonary embolism; Z85.46 Personal history of malignant neoplasm of prostate; W11.XXXD Fall on and from ladder, subsequent encounter
CPT/HCPCS: 15271; Q4186

== ENCOUNTER 2023-03-20 10:15 | Outpatient (RCR) | payer MEDICARE, SELFPAY ==
[2023-03-10 00:20] VITALS: BP 115/72; PULSE 84; RESP 18; TEMP 36.5; BMI 19.9
--- NOTE | 2023-03-13 10:06 | PN.PCM_ITS ---
History of Present Illness Date of Service: 03/13/23 Chief Complaint: Right lower extremity wound History of Wound: Patient is a 72-year-old male who presents to the wound care center for nonhealing left lower extremity wound. He has PMHx of stroke, prostate cancer, PE, subarachnoid hemorrhage. Patient states that 3 weeks ago he was standing on a step ladder painting the outside of the house and lost balance falling onto some gravel rocks. He presented to the [facility] ED on 11/30/2022 with laceration to scalp and right lower extremity. Lacerations repaired with 2 munira placed into the head laceration and eleven 4-0 nylon simple interrupted sutures placed into the right lower extremity with central defect secondary to loss of skin coverage. During fall he also suffered for rib fractures and ultimately developed pneumothorax and was admitted to the [facility]. He did have chest tube placed which has been pulled and healing well. They state they have been keeping the wound clean and dry to the right lower extremity however wound has failed to progress in healing with eschar noted to the wound bed. He denies being diabetic. Denies constitutional symptoms. Denies further complaints. Subjective Subjective This is a 72-year-old male who presents to the wound care center today for follow-up of right lower extremity ulceration secondary to fall. He is changing outer dressings as needed. He remains active with daily walking. States he can see the wound getting smaller each visit. Denies any constitutional symptoms. Denies further complaints. Objective Data Objective Data Vital Signs: Vital Signs Temp Pulse Resp BP 97.7 F L 84 18 115/72 03/10/23 00:20 03/10/23 00:20 03/10/23 00:20 03/10/23 00:20 Weight: 63.049 kg Body Mass Index (BMI) 19.9 Physical Exam Const alert, oriented x3 and no apparent distress General Appearance: cooperative HEENT normocephalic Eyes General Eye: normal appearance of both eyes Neck General: normal visual inspection Lymph Lymphatic: no lymphadenopathy noted and no lymphedema noted Resp normal respiratory effort Cardio regular rate and regular rhythm Extremity normal capillary refill, no joint enlargement, no calf tenderness and no pedal edema Extremity Narrative: Vascular: DP and PT pulses palpable bilateral. Capillary fill time less than 5 seconds to the digits bilateral. No pedal edema, no lymphadenopathy, no lymphangitic streaking. Negative Homans' sign, negative Tijerina sign to right lower extremity. Dermatological: Traumatic ulceration noted to the right anterior and lateral lower extremity with granular wound bed. No erythema, no purulent drainage, no malodor, no palpable fluctuance/bogginess noted, no visible abscess formation, no lymphangitic streaking, no other signs of infection. Musculoskeletal: Muscle strength 5 of 5 age-appropriate. Decreased range of motion of the ankle joint in dorsiflexion with the knee extended without pain or crepitus bilateral. Enlarged palpable styloid process fifth metatarsal base left foot. No pain to palpation to bones of foot or ankle bilateral. Skin no rashes or lesions noted, skin turgor normal and no jaundice Neuro moves all extremities Debridement Note Debridement Note Wound debrided: Right lower extremity Laterality: Right Wound Grade/Stage: Mendez stage I Type of Debridement: Excisional debridement Anesthesia Used: 5% Lidocaine Gel Depth: Down to and including healthy tissue and in the subcutaneous layer Percentage of wound debrided: 100 Instrument Used: 5mm curette Tissue Removed: Fibrous, devitalized subcutaneous, biofilm, slough Severity: Fat Layer Exposed Amount of bleeding with debridement: Mild Bleeding Controlled with: Compression and gauze Patient tolerated procedure: Patient tolerated procedure well Assessment/Plan Assessment/Plan (1) Non-pressure chronic ulcer of right calf with fat layer exposed: CODE(S): L97.212 - Non-pressure chronic ulcer of right calf with fat layer exposed (2) Leg wound, right: CODE(S): S81.801A - Unspecified open wound, right lower leg, initial encounter PLAN: Plan Patient seen and evaluated Ulceration to the right lower extremity was debrided as noted in the clinical panel above. Proximal right lower extremity wound measures 0.9 cm x 0.5 cm x 0.1 cm in distal right lower extremity wound has healed. EpiFix graft #9 applied to the wound bed and dressed with Adaptic touch and anchored with Steri- Strips. Dressed with dry sterile dressing. They are instructed to change outer dressing as needed. He was instructed to not get the site wet. Wound demonstrates continued reduction in size versus previous visit. He was approved for advanced skin care product, EpiFix. We will continue application Discussed adequate protein intake for continued wound healing. He is to elevate lower extremity at times of rest to aid in any edema control. Discussed how this will improve wound healing. He is continuing daily exercise of walking a mile despite medical problems. States overall he feels good and would like to continue this. He would like to get back to running 5 miles a day which he was doing regularly prior to his fall. Currently walking 2 miles daily. Discussed good supportive shoe gear today. Patient does wear ASIC shoes and are noted to be supportive. Discussed signs and symptoms of infection. Discussed if he notices any redness about the wound margin moving up the leg, purulent drainage from the site, increasing foul odor from the wound site, or if he experiences fever greater than 101 degree, nausea, vomiting, chills these are a sign of progressing infection and he should report to the ED. He and his both voiced understanding of this. The following work up and care recommendations were made: Dressing: EpiFix, Adaptic touch, Steri-Strips, dry sterile dressing. Change outer dressings as needed. Wash: Do not get wet Tissue growth optimization: EpiFix Offload: Ensure nothing bumps anterior right lower extremity. Keep dressing intact providing protection. Vascular: Palpable DP and PT pulses with adequate capillary fill time to the digits. Do not feel vascular status is impacting wound healing. Edema: There is some mild localized edema about the wound margins. Discussed elevation of lower extremities to aid in wound healing. Infection: No signs of infection. Pain: May take [id number] Tylenol for discomfort. Host factors: No current factors impacting healing. Patient otherwise healthy. I answered all the patient's questions. To return to the wound healing center in 1 week or call sooner if the patient has any questions or concerns.
[2023-03-13 10:21] VITALS: RESP 16; TEMP 36.2; BMI 19.9
[2023-03-20 10:22] VITALS: BP 83/59; PULSE 88; RESP 18; TEMP 35.4; BMI 19.9
--- NOTE | 2023-03-20 11:23 | PN.PCM_ITS ---
History of Present Illness Date of Service: 03/20/23 Chief Complaint: Right lower extremity wound History of Wound: Patient is a 72-year-old male who presents to the wound care center for nonhealing left lower extremity wound. He has PMHx of stroke, prostate cancer, PE, subarachnoid hemorrhage. Patient states that 3 weeks ago he was standing on a step ladder painting the outside of the house and lost balance falling onto some gravel rocks. He presented to the [facility] ED on 11/30/2022 with laceration to scalp and right lower extremity. Lacerations repaired with 2 munira placed into the head laceration and eleven 4-0 nylon simple interrupted sutures placed into the right lower extremity with central defect secondary to loss of skin coverage. During fall he also suffered for rib fractures and ultimately developed pneumothorax and was admitted to the [facility]. He did have chest tube placed which has been pulled and healing well. They state they have been keeping the wound clean and dry to the right lower extremity however wound has failed to progress in healing with eschar noted to the wound bed. He denies being diabetic. Denies constitutional symptoms. Denies further complaints. Subjective Subjective This is a 72-year-old male who presents to the wound care center today for follow-up of right lower extremity ulceration secondary to fall. He is changing outer dressings as needed. He remains active with daily walking. States he believes he has healed today. Denies any constitutional symptoms. Denies further complaints. Objective Data Objective Data Vital Signs: Vital Signs Temp Pulse Resp BP O2 Del Method 95.8 F L 88 18 83/59 L Room Air 03/20/23 10:22 03/20/23 10:22 03/20/23 10:22 03/20/23 10:22 03/13/23 10:21 Oxygen Delivery Method Room Air Weight: 63.049 kg Body Mass Index (BMI) 19.9 Physical Exam Const alert, oriented x3 and no apparent distress General Appearance: cooperative HEENT normocephalic Eyes General Eye: normal appearance of both eyes Neck General: normal visual inspection Lymph Lymphatic: no lymphadenopathy noted and no lymphedema noted Resp normal respiratory effort Cardio regular rate and regular rhythm Extremity normal capillary refill, no joint enlargement, no calf tenderness and no pedal edema Extremity Narrative: Vascular: DP and PT pulses palpable bilateral. Capillary fill time less than 5 seconds to the digits bilateral. No pedal edema, no lymphadenopathy, no lymphangitic streaking. Negative Homans' sign, negative Tijerina sign to right lower extremity. Dermatological: Traumatic ulceration noted to the right anterior and lateral lower extremity has healed. No erythema, no purulent drainage, no malodor, no p alpable fluctuance/bogginess noted, no visible abscess formation, no lymphangitic streaking, no other signs of infection. Musculoskeletal: Muscle strength 5 of 5 age-appropriate. Decreased range of motion of the ankle joint in dorsiflexion with the knee extended without pain or crepitus bilateral. Enlarged palpable styloid process fifth metatarsal base left foot. No pain to palpation to bones of foot or ankle bilateral. Skin no rashes or lesions noted, skin turgor normal and no jaundice Neuro moves all extremities Debridement Note Debridement Note No debridement was completed: No debridement was completed today Post-Debridement Measurements and Additional Note: Post-Debridement Measurements/Treatment - Nurse 1 - General Ulcer Assessment Start: 03/13/23 10:21 Freq: Status: Active Protocol: [email or web address] Activity Type Activity Date Activity User E-sign Co-sign Detail Recorded Client Recorded Date Recorded By Document 03/13/23 10:21 [facility] Desktop 03/13/23 10:26 [facility] Document 03/20/23 10:22 Laptop 03/20/23 10:25 03/13/23 03/20/23 10:21 10:22 - Today's Visit Information Type of service Follow-up Visit Follow-up Visit (Physician/NETWORK SYSTEMS ANALYST (Physician/NETWORK SYSTEMS ANALYST ) ) Arrival Mode Ambulatory Ambulatory Patient Identification Verified (Name & Yes Yes ) Patient Requires Transmission-Based No Precautions Height and Weight Body Mass Index (BMI) 19.9 19.9 BMI Classification Normal Normal Vital Signs Temperature (97.8 F-99.1 F) 97.1 F L 95.8 F L Temperature Source Temporal Temporal Pulse Rate (60-100) 88 Pulse Location Monitor Monitor Respiratory Rate (12-18) 16 18 Respiratory rate source Observation Observation Oxygen Delivery Method Room Air Blood Pressure (90/60-120/80) 83/59 L Blood Pressure Mean (mm Hg) 67 Source Monitor Monitor Position Semi-Fowlers Semi-Fowlers Blood Pressure Location Left Arm Left Arm History Since Last Visit- (Skip if this is Patient's initial visit) Have you changed medications since your No No last visit? Any new allergies or adverse reactions No No Had a fall/change in ADL's that may No No increase risk of falls Signs or symptoms of abuse and/or No neglect since last visit Have you been in the hospital since your No No last visit? Has dressing in place as prescribed Yes Yes Has compression in place as prescribed Yes Yes Has offloadiing in place as prescribed No N/A Experienced any changes in pain level or No No management Left Footwear Regular Shoe Regular Shoe Right Footwear Regular Shoe Regular Shoe Pain Scale: 0-10 Numeric Is Patient Pain Free? Yes Yes WC - Nurse 1 - General Ulcer Measurement Start: 03/13/23 10:21 Freq: Status: Active Protocol: Activity Type Activity Date Activity User E-sign Co-sign Detail Recorded Client Recorded Date Recorded By Document 03/13/23 10:21 [facility] Desktop 03/13/23 10:26 KW Document 03/20/23 10:22 Laptop 03/20/23 10:25 03/13/23 03/20/23 10:21 10:22 Wound Center Nurse 1 RT MED LOWER LEG -Combined with other wound No -Current Size (cm) - Length 0.1 0.1 -Current Size (cm) - Width 0.1 0.1 -Current Size (cm) - Depth 0.1 0.1 -Total Square Cm 0.01 0.01 -Photo Taken No -Tunneling No -Undermining/Tunneling No -Circular Undermining No -Exudate Amt None Present -Wound Margin Indistinct, Non -Visible -Granulation Amt None Present (0 %) -Slough/Fibrin Yes -Necrosis Amt Large (67-100%) -Necrotic Tissue Type Eschar -Structure Exposed N/A -Texture (Tameka-wound Skin Appearance) Assessed Assessed -Moisture (Tameka-wound Skin Appearance) Assessed Assessed,Dry/ Scaly -Color (Tameka-wound Skin Appearance) Assessed, Assessed Erythema -Temperature (Tameka-wound Skin No Abnormality No Abnormality Appearance) (Pt Warm) (Pt Warm) -Tenderness on Palpation (Tameka-wound No Skin Appearance) -Ulcer Cleansing Soap and Water -Foul Odor after Cleansing No -Anesthetic Used 5% Lidocaine 5% Lidocaine Gel Gel Lower Limb Edema Present Yes Right Calf (cm) 37.0 35.5 Right Ankle (cm) 21.4 20.5 WC - Nurse 2 - General Ulcer CM Notes Start: 03/13/23 10:21 Freq: Status: Active Protocol: Activity Type Activity Date Activity User E-sign Co-sign Detail Recorded Client Recorded Date Recorded By Document 03/13/23 12:21 PL [id number] 03/13/23 12:22 PL Edit Result 03/13/23 12:21 PL (1) [id number] 03/13/23 12:23 PL (1) RT MED LOWER LEG - Expiration Date => 11/09/27 - Product Lot Number => [id number] - Percent Used => 100 03/13/23 12:21 Wound Center Nurse 2 RT MED LOWER LEG -Time 10:39 -Correct Patient Yes -Correct Side, Site, Position Yes -Correct Procedure Yes -Procedure Performed Yes -Type of Procedure Debridement -Clinical Debridement Subcutaneous -Tissue Removed Subcutaneous -Post Debridement (cm) - Length 0.9 -Post Debridement (cm) - Width 0.5 -Post Debridement (cm) - Depth 0.1 -Total Square (Post) (cm) 0.45 -Area of Debridement (cm) - Length 0.9 -Area of Debridement (cm) - Width 0.5 -Total Square (Area) (cm) 0.45 -Tunneling No -Undermining/Tunneling No -Circular Undermining No -Wound/Ulcer Outcome Not Healed -Ulcer Cleansing Rinsed/ Irrigated with Saline -Foul Odor after Cleansing No -Bioengineered Tissue Yes -Type of Bioengineered Tissue Epifix 18mm Disc -Expiration Date 11/09/27 -Product Lot Number [id number] -Percent Used 100 -Bleeding Controlled with Pressure -Treatment Response Procedure Tolerated Well -Debridement - Subq, 1st 20sq cm No -Apply Skin Sub - 1st 25 sq cm - Legs 1 -Epifix 18mm Disc 3 Pain Scale: 0-10 Numeric Is Patient Pain Free? Yes WC - Nurse 3 - General Ulcer D/C NN Start: 03/13/23 10:21 Freq: Status: Active Protocol: Activity Type Activity Date Activity User E-sign Co-sign Detail Recorded Client Recorded Date Recorded By Document 03/13/23 10:49 KW Desktop 03/13/23 10:49 KW 01/04/24 10:49 Wound Care Center Nurse 3 RT MED LOWER LEG -Primary Dressing Covered/Secured with Dry Gauze & Roll Gauze, Secured with Tape Right -Tubular Bandage Single Layer -Size of Tubigrip Used Size D -Size D ($) 1 Pain Scale: 0-10 Numeric Is Patient Pain Free? Yes WC - Visit Discharge Discharge Condition Stable Ambulatory Status Ambulatory Transportation Private Auto Medication Reconcilliation completed & No provided to patient/care provider Clinical Summary of Care Provided Yes Assessment/Plan Assessment/Plan (1) Non-pressure chronic ulcer of right calf with fat layer exposed: CODE(S): L97.212 - Non-pressure chronic ulcer of right calf with fat layer exposed (2) Leg wound, right: CODE(S): S81.801A - Unspecified open wound, right lower leg, initial encounter PLAN: Plan Patient seen and evaluated Ulceration to the right lower extremity has healed today. Discussed keeping protective dressing over for the next 7 to 10 days as skin is still fragile. He voices understanding of this. He is continuing daily exercise of walking a mile despite medical problems. States overall he feels good and would like to continue this. He would like to get back to running 5 miles a day which he was doing regularly prior to his fall. Currently walking 2 miles daily. Discussed good supportive shoe gear today. Patient does wear ASIC shoes and are noted to be supportive. Discussed signs and symptoms of infection. Discussed if he notices any redness about the wound margin moving up the leg, purulent drainage from the site, increasing foul odor from the wound site, or if he experiences fever greater than 101 degree, nausea, vomiting, chills these are a sign of progressing infection and he should report to the ED. He and his both voiced understanding of this. The following work up and care recommendations were made: Dressing: Protective dry sterile dressing next 7 to 10 days Wash: Soap and water Tissue growth optimization: None Offload: Ensure nothing bumps anterior right lower extremity. Keep dressing intact providing protection. Vascular: Palpable DP and PT pulses with adequate capillary fill time to the digits. Do not feel vascular status is impacting wound healing. Edema: None Infection: No signs of infection. Pain: May take [id number] Tylenol for discomfort. Host factors: No current factors impacting healing. Patient otherwise healthy. At this time patient is healed and he is being discharged from the wound care center today. He may return to the wound care center for any further issues or call if any questions or problems arise.
== END 2023-03-20 15:59 | disposition home or self-care (01) ==
LOC: WC 10:15
PROVIDERS: PCP Family Medicine; Referring Provider Emergency Medicine; Visit Provider Student in an Organized Health Care Education/Training Program
DX: L97.212 Non-pressure chronic ulcer of right calf with fat layer exposed (principal); S22.49XD Multiple fractures of ribs, unspecified side, subsequent encounter for fracture with routine healing; Z86.73 Personal history of transient ischemic attack (TIA), and cerebral infarction without residual deficits; Z86.711 Personal history of pulmonary embolism; Z85.46 Personal history of malignant neoplasm of prostate; W19.XXXD Unspecified fall, subsequent encounter
CPT/HCPCS: 15271; 99213; Q4186; G0463

== ENCOUNTER → 2024-06-09 | Outpatient (CLI) | payer MEDICARE, SELFPAY ==
--- NOTE | 2024-06-09 13:31 | MRI_ITS ---
PROCEDURE: SPINE LUMBAR (ROUTINE) 06/09/2024 REASON FOR EXAM: PAIN COMPARISON: Lumbar spine radiograph 05/07/2024 FINDINGS: Vertebrae: Vertebral body heights and disc spaces are within normal limits. No suspicious marrow replacement process. Alignment: Lumbar lordosis is maintained. Grade 1 anterolisthesis of L4 on L5. Conus Medullaris: Conus medullaris terminates at L1. L1-2: Small disc bulge and mild facet degenerative changes without canal stenosis. Neural foramina are patent. L2-3: Small circumferential disc bulge and facet degenerative changes with flattening of the ventral thecal sac. No significant canal stenosis or neural foraminal narrowing. L3-4: Circumferential disc bulge and facet degenerative changes with mild ligamentum flavum hypertrophy. Mild canal stenosis. Neural foramina are patent. L4-5: Circumferential disc bulge, facet degenerative changes with mild canal stenosis. Mild bilateral subarticular recess narrowing. Moderate left and mild right neural foraminal narrowing. L5-S1: Disc bulge asymmetric to the right, facet degenerative changes and ligamentum flavum hypertrophy without significant canal stenosis. There is abutment of the traversing right S1 nerve root. Mild bilateral neural foraminal narrowing. Sacrum: Sacrum is unremarkable. Partially imaged simple right renal cyst. Layering biliary sludge. MRI/Spine Lumbar (Routine) IMPRESSION: No acute findings of the lumbar spine. Multilevel degenerative changes, with up to mild canal stenosis and moderate ne ural foraminal narrowing, most prominent at L4-L5 and L5-S1. TECHNIQUE: Multiplaner MRI of the lumbar spine performed without contrast. Multiple pulse sequences were obtained. Multiplanar multisequence MRI of the lumbar spine without contrast. Reading Location: [id number]
== END | disposition home or self-care (01) ==
LOC: MRI 13:16
PROVIDERS: PCP Family Medicine; Referring Provider Orthopaedic Surgery Orthopaedic Surgery of the Spine; Visit Provider Orthopaedic Surgery Orthopaedic Surgery of the Spine
DX: M43.16 Spondylolisthesis, lumbar region (principal)
CPT/HCPCS: 72148